=== PATIENT | female | born 1930 | race Caucasian/White ===

== ENCOUNTER 2017-09-20 14:15 | Inpatient (IN) | payer OTHER ==
[~2017-09-20] VITALS: Ht 165.1 cm; Wt 69.7 kg
--- NOTE | 2017-09-20 14:25 | ED MVC/FALL/TRAUMA COMPLAINT ---
See Addendum History of Present Illness General Chief Complaint: Fall Stated Complaint: BIBA FALL Source: patient, family, old records, EMS Exam Limitations: no limitations Vital Signs & Intake/Output Vital Signs & Intake/Output Vital Signs Date Time Temp Pulse Resp B/P B/P Pulse O2 O2 Flow FiO2 Mean Ox Delivery Rate 09/21 1304 84/50 09/21 1232 97.8 59 16 93/54 95 Room Air 09/21 1144 97 81/56 09/21 1116 78/54 09/21 0846 98.4 84 20 105/68 96 Room Air 09/21 0621 98.6 87 20 117/80 94 Room Air 09/21 0026 98.1 116 20 108/74 96 Room Air 09/20 2208 66 18 120/71 94 Room Air 09/20 2024 88 20 138/81 94 Room Air 09/20 1734 78 18 128/78 95 Room Air ED Intake and Output 09/21 0000 09/20 1200 Intake Total 100 Output Total Balance 100 Intake, IV 100 Patient 145 lb Weight Weight Reported by Patient Measurement Method Allergies Coded Allergies: No Known Allergies (09/20/17) Reconcile Medications No Known Home Medications Triage Nurses Notes Reviewed? yes Onset: Abrupt Duration: day(s): (1), constant Timing: recent history Severity: mild Severity Numbers: 5 Injuries/Fall Location: no injury Method of Injury: fall Loss of Consciousness: no loss of consciousness No Modifying Factors: none Associated Symptoms: DENIES HPI: 87-year-old female with no known medical history as she has not been to the doctor in several years presents to the ER for evaluation status post being found by family on the floor of her bathroom. She states yesterday around 3:00 she dropped something in the bathroom and when she attempted to pick it up she fell onto the ground. She states she did not hit her head there was no loss of consciousness. She states that her legs were too weak and she was unable to stand up. She denies any hip knee foot or ankle pain no numbness or tingling no arm pain neck or back pain. She denies any prodromal dizziness lightheadedness chest pain prior to the fall. There is no change in her mental status per family or the patient she denies nausea or vomiting. she normally uses a cane to ambulate (Benjamin MYLES,Pavel) Past History Travel History Traveled to [place] past 21 day No Medical History Any Pertinent Medical History? none Surgical History Surgical History: none Family History Hx Contributory? No (Pavel Schaefer) Review of Systems Review of Systems Constitutional: Reports: see HPI. Comments Review of systems: See HPI, All other systems negative. Constitutional, no chills no fever HEENT: no sore throat no congestion, Cardiovascular: No chest pain , no palpitation Skin: no rashes, no change in skin Respiratory: No dyspnea no cough GI: No nausea no vomiting, no diarrhea : No dysuria Muscle skeletal: No joint pain, no back pain, no neck pain, Neurologic: , no headache Heme/endocrine: No bruising Immunology: No lymphadenopathy (Pavel Schaefer) Physical Exam Physical Exam General Appearance: well developed/nourished, alert, awake Comments: Well-developed well-nourished person in no acute distress HEENT: Normal EENT exam; PERRL, EOMI, no nystagmus. HEAD is atraumatic. moist mucous membranes. Neck: Supple, nontender no ecchymosis normal range of motion Back: Nontender, no CVA tenderness. Full range of motion no ecchymosis or signs of trauma Cardiovascular: Regular rate and rhythms no murmurs rubs or gallops, normal JVP Respiratory: Chest nontender.There were no bony deformities, no asymmetry. No respiratory distress. Patient speaking in full complete sentences. Breath sounds clear to auscultation bilaterally: NO W/R/R Abdomen: Soft, nontender nondistended, no appreciable organomegaly. Normal bowel sounds. No rebound/guarding, Shoulder: Atraumatic/Stable. FROM . Elbow: Atraumatic/stable. FROM. No laxity Upper arm/Forearm: Atraumatic. Nontender. No edema, 5 out of 5 stick welder strength noted to bilateral upper extremities Hand/Wrist: Atraumatic/stable. Skin intact. FROM Pulses: Normal/equal radial pulses bilaterally. Brisk cap refill Hip/Pelvis: Atraumatic/Stable. FROM. No pain with pelvic compression Knee: Atraumatic/stable. FROM. No joint swelling, no effusion. No laxity. Negative walker/anterior drawer test. No pain with ROM Leg: Atraumatic. Nontender. No edema, 5 out of 5 strength in the lower extremity, normal dorsiflexion of great toe bilaterally, gross sensation is intact Ankle/Foot: Atraumatic/stable. Skin intact. FROM. No swelling, no effusion. No laxity on exam Pulses: Normal/equal DP/PT pulses bilaterally. Brisk cap refill Neuro: Alert oriented x3, motor sensory normal, cranial nerves II through XII grossly intact. There were no obvious focal neurologic abnormalities. Skin: No appreciable rash on exposed skin, skin is warm and dry. Psych: Mood and affect is normal, memory and judgment is normal. Core Measures ACS in differential dx? Yes CVA/TIA Diagnosis No Sepsis Present: No Sepsis Focused Exam Completed? No (Benjamin MYLES,Pavel) Progress Differential Diagnosis: abd injury, C/T/L spine injury, ext injury, ICH, pelvis injury, spinal cord injury, RHABDO, ELECTROLYTE ABNORMALITY, DEHYDRATION Plan of Care: Orders Procedure Date/time Status Regular Diet 09/21 B Active URINALYSIS 09/21 131 Active CBC WITHOUT DIFFERENTIAL 09/21 1316 Complete BASIC METABOLIC PANEL 09/21 1317 Complete MOBILITY D/C STATUS 09/21 UNK Complete MOBILITY GOAL STATUS 09/21 UNK Complete MOBILITY CURRENT STATUS 09/21 UNK Complete Gait Training, 15 Min 09/21 UNK Complete PT EVAL LOW COMPLEX 20 MIN 09/21 UNK Complete PT Evaluate & Treat 09/20 1748 Active CASE MANAGEMENT CONSULT 09/20 1748 Active Laboratory Tests 09/21/17 1405: Anion Gap 11, Estimated GFR 43 L, BUN/Creatinine Ratio 28.3 H, Glucose 102 H, Calcium 9.0, CBC w Diff NO MAN DIFF REQ, RBC 4.55, MCV 88.1, MCH 28.8, MCHC 32.7 L, RDW 14.2, MPV 7.8, Gran % 81.0 H, Lymphocytes % 9.5 L, Monocytes % 9.1, Eosinophils % 0.2, Basophils % 0.2, Absolute Granulocytes 8.1 H, Absolute Lymphocytes 1.0 L, Absolute Monocytes 0.9 H, Absolute Eosinophils 0, Absolute Basophils 0 09/20/17 1729: Lactic Acid Cancelled 09/20/17 1635: Urinalysis MOD H, Urine Color BRADEN, Urine Clarity HAZY H, Urine pH 7.5, Ur Specific [place] 1.025, Urine Protein 100 H, Urine Ketones 15 H, Urine Nitrite NEG, Urine Bilirubin NEG@ICTO, Urine Urobilinogen 1.0, Ur Leukocyte Esterase NEG , Ur Microscopic SEDIMENT EXAMINED, Urine RBC 1-3, Urine WBC 3-5 H, Ur Epithelial Cells MANY H, Urine Bacteria MANY H, Granular Casts 3-5 H, Urine Mucus FEW, Urine Hemoglobin SMALL H, Urine Glucose NEG Labs ordered patient resting in no acute distress at this time denies pain. PT RESTING IN NAD, PENDING CT, I D/W FAMILY HER LABS TO DATE D\W PT AND SON HER CT FINDINGS, PT AMB TO BATHROOM WITH ASSISTANCE, GAIT NOT AT BASELINE, D/W THEM PLAN OF CARE AND NEED FOR PT CONSULT EVAL IN THE AM WHICH THEY ARE IN AGREEEMENT WITH. CASE D/W CASE MANAGEMENT AGREES WITH PLAN. 1750 PT RESTING IN NAD, DENIES PAIN Diagnostic Imaging: Viewed by Me: CT Scan. Discussed w/RAD: CT Scan. Radiology Impression: PATIENT: ALLI MUNOZ PRESENT AGE: 87 PATIENT ACCOUNT NO: [id number] : 32 LOCATION: [facility] ORDERING PHYSICIAN: Pavel MYLES SERVICE DATE: 09/20/17 EXAM TYPE: CAT - CT ABD & PELVIS W/O IV CONTRAS; CT CHEST WO IV CONTRAST EXAMINATION: CT CHEST WITHOUT IV CONTRAST CT ABDOMEN AND PELVIS WITHOUT IV CONTRAST CLINICAL INFORMATION: Weakness. Fall. Trauma. COMPARISON: None TECHNIQUE: Noncontrast multidetector CT imaging examination of the chest, abdomen and pelvis was performed. Axial images are displayed at 0.625 mm and 5 mm slice thickness. Coronal and sagittal reformatted images were generated at the technologist's workstation and submitted for review. DLP: 466 mGy-cm FINDINGS: CHEST - LUNGS and PLEURA: Trachea and central airways are widely patent and normal in caliber. There are a few calcified pulmonary granulomas. Also, small, 0.3 cm noncalcified nodule is present in the lateral segment of the right middle lobe ( image 308, series 4) and 0.2 similar noncalcified nodule is present in the anterolateral aspect of the right lower lobe near the level of the major fissure (image 352, series 4). No suspicious lung nodule, mass, consolidation, pleural effusion or pneumothorax. Minimal centrilobular and paraseptal emphysematous changes. MEDIASTINUM: Mild cardiomegaly. Scattered atherosclerotic calcifications of coronary arteries. Mild calcification is observed at level of the aortic valve. Aortic root measures 3.6 cm. The dilated ascending thoracic aorta measures up to 4.4 cm AP and 4.2 cm transverse diameter. At the mid arch level, aorta is 3.2 cm transverse diameter. There is mild ectasia of the descending aorta, as well. No pericardial effusion. The esophagus has normal wall thickness. No pneumomediastinum. Thyroid gland is grossly unremarkable. LYMPHATICS: No pathologic sized axillary, hilar or mediastinal lymph nodes. CHEST WALL/BONES: Bones appear diffusely osteoporotic. Osteoarthritis of joints of both shoulders, most severe at the left glenohumeral joint. No evidence of an acute, displaced rib fracture or chest wall hematoma. No acute findings within the degenerated thoracic spine. There is approximately 25-30% anterior height loss of the T11 vertebral body which appears chronic. No acute fractures are seen. The sternum is intact. ABDOMEN AND PELVIS - HEPATOBILIARY: Liver has normal size, contour and attenuation. No perihepatic fluid collection. Gallbladder is well distended and without radiopaque calculi. No gallbladder wall edema or pericholecystic fluid. PANCREAS: Unremarkable. SPLEEN: Unremarkable. ADRENAL GLANDS: Unremarkable. KIDNEYS, URETERS, BLADDER: Kidneys have normal size, cortical thickness and attenuation. No nephrolithiasis or hydronephrosis. Urinary bladder is unremarkable. GI TRACT AND PERITONEUM: The stomach is underdistended. Bowel loops are normal in caliber. No evidence of acute inflammation or obstruction along the gastrointestinal tract. No ascites or pneumoperitoneum. Diverticulosis of the sigmoid colon without diverticulitis. ABDOMINAL WALL: Within the umbilical region, there is a approximately 1.3 cm wide fascial defect with small fat-containing hernia sac measuring 1.8 x 1.2 x 1.5 cm. VASCULAR: Atherosclerotic calcification of the abdominal aorta and iliac arteries without aortic aneurysm. No retroperitoneal hematoma. LYMPH NODES: No pathologic sized lymph nodes in the abdomen or pelvis. PELVIC VISCERA: The uterus is grossly unremarkable. No adnexal mass or pelvic free fluid. OSSEOUS STRUCTURES: There are vacuum disc degenerative changes at L4-L5 and L5-S1. Multilevel facet osteoarthritis of the lumbar spine, most severe at L4-L5 and L5 -S1. Pelvic bones, including sacrum, are intact. Osteoarthritis is mild at the right hip and severe at the left hip where there is pnur-ey-nndh contact, extensive subchondral cystic change and osteophyte formation. IMPRESSION: No acute traumatic findings in the chest, abdomen or pelvis. DICTATED BY: Zana Torres MD DATE/TIME DICTATED:09/20/171540 SURGICAL SCRUB TECH:GONSALEZ DATE/ TIME TRANSCRIBED:09/20/171540 CONFIDENTIAL, DO NOT COPY WITHOUT APPROPRIATE AUTHORIZATION. <Electronically signed in Other Vendor System> SIGNED BY: Zana Torres MD 09/20/17 1603, PATIENT: ALLI MUNOZ PRESENT AGE: 87 PATIENT ACCOUNT NO: [id number] : 32 LOCATION: [facility] ORDERING PHYSICIAN: Pavel MYLES SERVICE DATE: 09/20/17 EXAM TYPE: CAT - CT CERV SPINE WO IV CONTRAST; CT HEAD WO IV CONTRAST EXAMINATION: CT HEAD AND CT CERVICAL SPINE. CLINICAL INFORMATION: Weakness and fall. COMPARISON: None TECHNIQUE: 5 mm thin axial and 2.5 mm thin coronal images of brain were obtained. Subsequently axial 2.5 within axial and 2 within coronal and sagittal images of cervical spine were obtained without contrast. DLP 859 FINDINGS: BRAIN : There is no acute intra-axial, extra-axial bleed, masses or midline shift. There is no acute infarct in evolution. The lateral ventricles are symmetrical in size and configuration without enlargement. Olivas to white matter differentiation is maintained. Bone windows reveal no calvarial abnormality. Bilateral paranasal sinuses and mastoid air cells are well-aerated. CERVICAL SPINE: There is mild straightening of cervical lordosis. The vertebral heights and alignment appears normal. Loss of C4-C5, C5-C6 and C6-C7 disc height is noted. There is mild posterior spondylosis as well. No lytic or sclerotic process seen. Mild facet joint arthropathy seen on the right at C3-C4, C4-C5, C5 -C6 and C6-C7 disc levels. There is minimal right apical pleural thickening. IMPRESSION: No acute intra-abdominal cranial process seen. No acute fracture or dislocation. There are degenerative disc changes and facet joint arthropathy C3- C4 through C6-C7 disc levels. DICTATED BY: Frances MONTGOMERY,Jeremy DATE/TIME DICTATED:1548 SURGICAL SCRUB TECH:GONSALEZ DATE/TIME TRANSCRIBED:09/20/171548 CONFIDENTIAL, DO NOT COPY WITHOUT APPROPRIATE AUTHORIZATION. <Electronically signed in Other Vendor System> SIGNED BY: Frances MONTGOMERY,Jeremy 09/20/17 1605 Initial ED EKG: normal sinus rhythm, LBBB, PVC Rhythm Strip: normal sinus rhythm Hand-Off Endorsed To: Meek Wallace MD Endorsed Time: 0100 Pending: consult (PT), other (Pavel Schaefer) Hand-Off Endorsed To: Weston Duke DO Endorsed Time: 0700 Pending: consult (Meek Wallace MD) Comments: 09/21/2017 7:27:11 AM patient signed out to me (not Dr. Duke) by Dr. Wallace at shift change agent. 09/21/2017 11:26:27 AM it was just reported to me by this patient's nurse that she is hypotensive. The patient appears quite comfortable sitting in a chair by the bedside. Her color is good and she is alert and conversant. She offers no complaint at this time. I have ordered orthostatic vital signs to assess for possible volume depletion. (Weston Bruce MD) Departure Departure Disposition: STILL A PATIENT Condition: Stable Clinical Impression Primary Impression: Weakness Secondary Impressions: Fall, Gait instability Departure Forms: Customer Survey General Discharge Information (Pavel Schaefer) PA/SYNTHETIC GEM PRESS OPERATOR Co-Sign Statement Statement: ED Attending supervision documentation- [X] I saw and evaluated the patient. I have also reviewed all the pertinent lab results and diagnostic results. I agree with the findings and the plan of care as documented in the PA's/SYNTHETIC GEM PRESS OPERATOR's documentation. [X] I have reviewed the ED Record and agree with the PA's/SYNTHETIC GEM PRESS OPERATOR's documentation. [] Additions or exceptions (if any) to the PAs/SYNTHETIC GEM PRESS OPERATOR's note and plan are summarized below: [] (Meek Wallace MD) Departure Prescriptions: Current Visit Scripts No Known Home Medications Rolling Walker UNIT SEE ADMIN CRITERIA #1 Use as instructed. (Weston Bruce MD) Departure Comments 09/21/17 3:34 PM PATIENT SIGNED OUT TO ME BY DR BRUCE. (Weston Duke DO) Current Visit Scripts No Known Home Medications Rolling Walker UNIT SEE ADMIN CRITERIA #1 Use as instructed. (Weston Bruce MD)
[2017-09-20 14:59] LABS: ABSOLUTE BASOPHIL COUNT 0 /CUMM (0.0-0.2); ABSOLUTE EOSINOPHIL COUNT 0 /CUMM (0.0-0.7); ABSOLUTE MONOCYTE COUNT 0.9 /CUMM (0.10-0.60); BASOPHIL % 0 % (0.0-2.0); EOSINOPHIL % 0 % (0-5); GRANULOCYTE % 85.6 % (42.2-75.2); HEMATOCRIT 45.9 % (37-47); MEAN CORPUSCULAR HGB 28.8 PG (27.0-31.0); MEAN CORPUSCULAR HGB CONC 32.8 G/DL (33.0-37.0); MEAN CORPUSCULAR VOLUME 87.8 FL (81.0-99.0); MEAN PLATELET VOLUME 7.8 FL (7.4-10.4); PLATELET COUNT 296 /CUMM (130-400); RBC DISTRIBUTION WIDTH 14.1 % (11.5-14.5); RED BLOOD CELL CT 5.23 /CUMM (4.20-5.40); WHITE BLOOD CELL COUNT 12.9 /CUMM (4.8-10.8)
[2017-09-20 15:19] LABS: PT 11.9 SEC (9.4-12.5)
--- NOTE | 2017-09-20 16:03 | CT SCAN REPORT ---
EXAMINATION: CT CHEST WITHOUT IV CONTRAST CT ABDOMEN AND PELVIS WITHOUT IV CONTRAST CLINICAL INFORMATION: Weakness. Fall. Trauma. COMPARISON: None TECHNIQUE: Noncontrast multidetector CT imaging examination of the chest, abdomen and pelvis was performed. Axial images are displayed at 0.625 mm and 5 mm slice thickness. Coronal and sagittal reformatted images were generated at the technologist's workstation and submitted for review. DLP: 466 mGy-cm FINDINGS: CHEST - LUNGS and PLEURA: Trachea and central airways are widely patent and normal in caliber. There are a few calcified pulmonary granulomas. Also, small, 0.3 cm noncalcified nodule is present in the lateral segment of the right middle lobe (image 308, series 4) and 0.2 similar noncalcified nodule is present in the anterolateral aspect of the right lower lobe near the level of the major fissure (image 352, series 4). No suspicious lung nodule, mass, consolidation, pleural effusion or pneumothorax. Minimal centrilobular and paraseptal emphysematous changes. MEDIASTINUM: Mild cardiomegaly. Scattered atherosclerotic calcifications of coronary arteries. Mild calcification is observed at level of the aortic valve. Aortic root measures 3.6 cm. The dilated ascending thoracic aorta measures up to 4.4 cm AP and 4.2 cm transverse diameter. At the mid arch level, aorta is 3.2 cm transverse diameter. There is mild ectasia of the descending aorta, as well. No pericardial effusion. The esophagus has normal wall thickness. No pneumomediastinum. Thyroid gland is grossly unremarkable. LYMPHATICS: No pathologic sized axillary, hilar or mediastinal lymph nodes. CHEST WALL/BONES: Bones appear diffusely osteoporotic. Osteoarthritis of joints of both shoulders, most severe at the left glenohumeral joint. No evidence of an acute, displaced rib fracture or chest wall hematoma. No acute findings within the degenerated thoracic spine. There is approximately 25-30% anterior height loss of the T11 vertebral body which appears chronic. No acute fractures are seen. The sternum is intact. ABDOMEN AND PELVIS - HEPATOBILIARY: Liver has normal size, contour and attenuation. No perihepatic fluid collection. Gallbladder is well distended and without radiopaque calculi. No gallbladder wall edema or pericholecystic fluid. PANCREAS: Unremarkable. SPLEEN: Unremarkable. ADRENAL GLANDS: Unremarkable. KIDNEYS, URETERS, BLADDER: Kidneys have normal size, cortical thickness and attenuation. No nephrolithiasis or hydronephrosis. Urinary bladder is unremarkable. GI TRACT AND PERITONEUM: The stomach is underdistended. Bowel loops are normal in caliber. No evidence of acute inflammation or obstruction along the gastrointestinal tract. No ascites or pneumoperitoneum. Diverticulosis of the sigmoid colon without diverticulitis. ABDOMINAL WALL: Within the umbilical region, there is a approximately 1.3 cm wide fascial defect with small fat-containing hernia sac measuring 1.8 x 1.2 x 1.5 cm. VASCULAR: Atherosclerotic calcification of the abdominal aorta and iliac arteries without aortic aneurysm. No retroperitoneal hematoma. LYMPH NODES: No pathologic sized lymph nodes in the abdomen or pelvis. PELVIC VISCERA: The uterus is grossly unremarkable. No adnexal mass or pelvic free fluid. OSSEOUS STRUCTURES: There are vacuum disc degenerative changes at L4-L5 and L5-S1. Multilevel facet osteoarthritis of the lumbar spine, most severe at L4-L5 and L5-S1. Pelvic bones, including sacrum, are intact. Osteoarthritis is mild at the right hip and severe at the left hip where there is yodt-nm-rcyh contact, extensive subchondral cystic change and osteophyte formation. IMPRESSION: No acute traumatic findings in the chest, abdomen or pelvis.
--- NOTE | 2017-09-20 16:05 | CT SCAN REPORT ---
EXAMINATION: CT HEAD AND CT CERVICAL SPINE. CLINICAL INFORMATION: Weakness and fall. COMPARISON: None TECHNIQUE: 5 mm thin axial and 2.5 mm thin coronal images of brain were obtained. Subsequently axial 2.5 within axial and 2 within coronal and sagittal images of cervical spine were obtained without contrast. DLP 859 FINDINGS: BRAIN: There is no acute intra-axial, extra-axial bleed, masses or midline shift. There is no acute infarct in evolution. The lateral ventricles are symmetrical in size and configuration without enlargement. Olivas to white matter differentiation is maintained. Bone windows reveal no calvarial abnormality. Bilateral paranasal sinuses and mastoid air cells are well-aerated. CERVICAL SPINE: There is mild straightening of cervical lordosis. The vertebral heights and alignment appears normal. Loss of C4-C5, C5-C6 and C6-C7 disc height is noted. There is mild posterior spondylosis as well. No lytic or sclerotic process seen. Mild facet joint arthropathy seen on the right at C3-C4, C4-C5, C5-C6 and C6-C7 disc levels. There is minimal right apical pleural thickening. IMPRESSION: No acute intra-abdominal cranial process seen. No acute fracture or dislocation. There are degenerative disc changes and facet joint arthropathy C3-C4 through C6-C7 disc levels.
[2017-09-21] MEDS ORDERED: RW (10:57)
[2017-09-21 14:19] LABS: ABSOLUTE BASOPHIL COUNT 0 /CUMM (0.0-0.2); ABSOLUTE EOSINOPHIL COUNT 0 /CUMM (0.0-0.7); ABSOLUTE GRANULOCYTE CT 8.1 /CUMM (1.4-6.5); ABSOLUTE MONOCYTE COUNT 0.9 /CUMM (0.10-0.60); BASOPHIL % 0.2 % (0.0-2.0); EOSINOPHIL % 0.2 % (0-5); MEAN CORPUSCULAR HGB 28.8 PG (27.0-31.0); MEAN CORPUSCULAR HGB CONC 32.7 G/DL (33.0-37.0); MEAN CORPUSCULAR VOLUME 88.1 FL (81.0-99.0); MEAN PLATELET VOLUME 7.8 FL (7.4-10.4); PLATELET COUNT 268 /CUMM (130-400); RBC DISTRIBUTION WIDTH 14.2 % (11.5-14.5); RED BLOOD CELL CT 4.55 /CUMM (4.20-5.40); WHITE BLOOD CELL COUNT 10.1 /CUMM (4.8-10.8)
[2017-09-21 14:34] LABS: HEMATOCRIT 40.1 % (37-47)
--- NOTE | 2017-09-21 18:32 | Cons- Cardiology ---
General Information and HPI Consulting Request Date of Consult: 09/21/17 Requested By: ER History of Present Illness: This patient is an 87 year old female with no significant past medical history although she refuses to see doctors. She presented to the emergency room Wednesday after a fall that occurred on Wednesday. Today, this patient was noted to be in atrial fibrillation with increased heart rate and this was accompanied by hypotension. The patient cannot feel this dysrhythmia and in general denies any chest pain, pressure, tightness or palpitations. She does have occasional lightheadedness and also has some shortness of breath with PND. When she feels poorly she likes to go to an open window and also sleeps on multiple pillows. At her baseline, she walks slowly although she attributes this to left leg arthritis. Allergies/Medications Allergies: Coded Allergies: No Known Allergies (09/20/17) Review of Systems Review of Systems: left leg and lower back pain Past History Travel History Traveled to [place] past 21 day No Medical History Musculoskeletal: NONE (arthritis) Endocrine: hypothyroisism Surgical History Surgical History: tonsillectomy Psychosocial History Smoking Status: Never Smoked ETOH Use: denies use Illicit Drug Use: denies illicit drug use Exam & Diagnostic Data Vital Signs and I&O Vital Signs Date Time Temp Pulse Resp B/P B/P Pulse O2 O2 Flow FiO2 Mean Ox Delivery Rate 09/21 1818 129 18 88/50 100 Nasal 2.0L Cannula 09/21 1808 98.9 148 16 72/54 09/21 1724 128 18 86/50 95 Room Air Room Air 09/21 1722 112 18 84/48 94 Room Air Room Air 09/21 1621 99.4 126 18 104/80 96 Room Air Room Air 09/21 1304 84/50 09/21 1232 97.8 59 16 93/54 95 Room Air 09/21 1144 97 81/56 09/21 1116 78/54 09/21 0846 98.4 84 20 105/68 96 Room Air 09/21 0621 98.6 87 20 117/80 94 Room Air 09/21 0026 98.1 116 20 108/74 96 Room Air 09/20 2208 66 18 120/71 94 Room Air 09/20 2024 88 20 138/81 94 Room Air Intake & Output 09/21 1600 09/21 0800 09/21 0000 09/20 1600 09/20 0800 09/20 0000 Intake Total 100 Output Total Balance 100 Intake, IV 100 Patient 145 lb Weight Weight Reported by Patient Measurement Method Physical Exam: General: WD/WN female in NAD; alert and oriented x 3 HEENT: NC/AT, PERRL, EOMI Neck: no JVD, no carotid bruit Heart: irregularly irregular and tachycardic with 2/6 systolic murmur Lungs: clear bilaterally ABdomen: soft, NT, +ve bowel sounds Extremities: 1+ left LE edema Assessment/Plan Assessment/Plan * This patient has newly discovered atrial fibrillation. Since she is completely incognizant of this dysrhythmia, even in the setting of a very rapid heart rate, we cannot exclude the possibility that she has been going in and out of atrial fibrillation for a long period of time. In the setting of paroxysmal atrial fibrillation this patient could have developed both intracardiac thrombus and a tachycardia induced cardiomyopathy. We will begin Amiodarone to attempt to slow her heart rate without lowering her blood pressure since this medication is known to be well tolerated even in the setting of a low EF. This is likely less risky than directly cardioverting the patient into a normal rhythm. We will also begin beta blockers in a cautious fashion with careful monitoring of her BP. * Begin IV heparin. * Check a TSH and free T4. * obtain an echocardiogram. * Admit to telemetry. Consult Acknowledgment - Thank you for your consult request.
--- NOTE | 2017-09-21 18:45 | History & Physical ---
Aries MONTGOMERY,[facility] 09/21/17 1845: General Information and HPI Statement: I have seen and personally examined ALLI MUNOZ and documented this H&P. The patient is a 87 year old F who presented with a patient stated chief complaint of fall. Source of Information: patient, family History of Present Illness: This is an 87-year-old lady with no known past medical history and reported noncompliance with doctor visits for several years, was brought in at [facility] by family members for evaluation after experiencing a mechanical fall 3 days ago. 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 She denied hitting her head on the ground. She states that she tried to get up immediately, but was not able due to hip pain. She "chose" to not yell for help untill the next day when her grandkid found her seated on the floor. Denies any prodromal symptoms of dizziness, denied any chest pain or palpitation, denied any loss of consciousness. No postictal confusion, bowel or urinary incontinence was noted. Denies any dysarthia, facial drop or any neurological symptoms. When found the next day by her grandkid, she was not noted to be confused but pleasently alert and at her usual baseline. However, she report a history of chronic hip pain with osteoarthritin, and a previous similar fall 2 weeks ago. She states that she was evaluated by an orthopedic surgeon and informed her about her degenerative joint status of her hip, she however decided not to follow up with ortho. She now sees a chiropractor. At baseline, patient leaves by herself, and is independent with ADLs. 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 Allergies/Medications Allergies: Coded Allergies: No Known Allergies (09/20/17) Past History Travel History Traveled to [place] past 21 day No Medical History Musculoskeletal: NONE (arthritis) Endocrine: hypothyroisism Surgical History Surgical History: tonsillectomy Past Family/Social History Psychosocial History Smoking Status: Never Smoked ETOH Use: denies use Illicit Drug Use: denies illicit drug use Review of Systems Review of Systems Constitutional: Reports: see HPI. EENTM: Reports: no symptoms. Cardiovascular: Reports: no symptoms. Respiratory: Reports: no symptoms. GI: Reports: no symptoms. Genitourinary: Reports: no symptoms. Musculoskeletal: Reports: joint pain. Skin: Reports: no symptoms. Neurological/Psychological: Reports: no symptoms. Hematologic/Endocrine: Reports: no symptoms. Immunologic/Allergic: Reports: no symptoms. All Other Systems: Reviewed and Negative Exam & Diagnostic Data Last 24 Hrs of Vital Signs/I&O Vital Signs Date Time Temp Pulse Resp B/P B/P Pulse O2 O2 Flow FiO2 Mean Ox Delivery Rate 09/21 2006 Nasal 2.0L Cannula 09/21 191 97.9 112 18 112/70 92 Room Air Room Air 09/21 1901 101 86/64 09/21 1834 92 88/54 99 Nasal 2.0L Cannula 09/21 1829 92 18 88/56 09/21 1818 129 18 88/50 100 Nasal 2.0L Cannula 09/21 1808 98.9 148 16 72/54 09/21 1724 128 18 86/50 95 Room Air Room Air 09/21 1722 112 18 84/48 94 Room Air Room Air 09/21 1621 99.4 126 18 104/80 96 Room Air Room Air 09/21 1304 84/50 09/21 1232 97.8 59 16 93/54 95 Room Air 09/21 1144 97 81/56 09/21 1116 78/54 09/21 0846 98.4 84 20 105/68 96 Room Air 09/21 0621 98.6 87 20 117/80 94 Room Air 09/21 0026 98.1 116 20 108/74 96 Room Air 09/20 2208 66 18 120/71 94 Room Air Physical Exam General Appearance Alert, Oriented X3, Cooperative Skin No Significant Lesion Skin Temp/Moisture Exam: Warm/Dry Sepsis Skin Exam (color): Normal for Ethnicity HEENT Atraumatic, Mucous Membr. moist/pink Neck Supple, No JVD Lymphatic Cervical nl Cardiovascular Normal S1, Normal S2, irregular rate Lungs Clear to Auscultation, Normal Air Movement Abdomen Normal Bowel Sounds, Soft, No Tenderness Neurological Normal Speech, Strength at 5/5 X4 Ext, Normal Tone, Sensation Intact Extremities No Clubbing, No Cyanosis, No Edema, left hip tender to deppe palpation, no erythema or swelling noted. decreased rom of left hip due to pain Vascular Normal Pulses, Pulses Symmetrical Last 24 Hrs of Labs/Bridger: Laboratory Tests 09/21/17 1755: Troponin I 0.05 09/21/17 1405: Anion Gap 11, Estimated GFR 43 L, BUN/Creatinine Ratio 28.3 H, Glucose 102 H, Calcium 9.0, CBC w Diff NO MAN DIFF REQ, RBC 4.55, MCV 88.1, MCH 28.8, MCHC 32.7 L, RDW 14.2, MPV 7.8, Gran % 81.0 H, Lymphocytes % 9.5 L, Monocytes % 9.1, Eosinophils % 0.2, Basophils % 0.2, Absolute Granulocytes 8.1 H, Absolute Lymphocytes 1.0 L, Absolute Monocytes 0.9 H, Absolute Eosinophils 0, Absolute Basophils 0 Diagnostic Data EKG Results afib Other Results SERVICE DATE: 09/20/17 EXAM TYPE: CAT - CT CERV SPINE WO IV CONTRAST; CT HEAD WO IV CONTRAST EXAMINATION: CT HEAD AND CT CERVICAL SPINE. CLINICAL INFORMATION: Weakness and fall. COMPARISON: None TECHNIQUE: 5 mm thin axial and 2.5 mm thin coronal images of brain were obtained. Subsequently axial 2.5 within axial and 2 within coronal and sagittal images of cervical spine were obtained without contrast. DLP [id number] FINDINGS: BRAIN: There is no acute intra-axial, extra-axial bleed, masses or midline shift. There is no acute infarct in evolution. The lateral ventricles are symmetrical in size and configuration without enlargement. [place] to white matter differentiation is maintained. Bone windows reveal no calvarial abnormality. Bilateral paranasal sinuses and mastoid air cells are well-aerated. CERVICAL SPINE: There is mild straightening of cervical lordosis. The vertebral heights and alignment appears normal. Loss of C4-C5, C5-C6 and C6-C7 disc height is noted. There is mild posterior spondylosis as well. No lytic or sclerotic process seen. Mild facet joint arthropathy seen on the right at C3-C4, C4-C5, C5-C6 and C6-C7 disc levels. There is minimal right apical pleural thickening. IMPRESSION: No acute intra-abdominal cranial process seen. No acute fracture or dislocation. There are degenerative disc changes and facet joint arthropathy C3-C4 through C6-C7 disc levels. Assessment/Plan Assessment: Impression * New onset A. fib with RVR * History of mechanical fall * Reported history of hip osteoarthritis * Chronic pain * Renal insufficiency * Rhabdomyolysis (mild) Plan Admit to telemetry for continuous cardiac monitoring Continue with amiodarone bolus X1, and then a switch to metoprolol as needed for rate control per cardiology recommendation Heparin drip per protocol for afib was ordered, however patient refused Obtain TSH levels Will obtain echocardiogram to evaluate for any valvular pathology Continue to trend BEP and cpk tomorrow am PT tomorrow dVT prophylaxis; Mechanical ALPS (Pt does not want any form of pharmacological anticoagulant). CODE STATUS : DNR/DNI, no central lines or heroic measures (pt is very adamant abot his wishes). As Ranked By This Provider Problem List: 1. Fall 2. Atrial fibrillation with RVR 3. Rhabdomyolysis Core Measures/Misc (01/17) Acute Coronary Syndrome ACS Diagnosis: No Congestive Heart Failure Congestive Heart Failure Diagnosis No Cerebrovascular Accident CVA/TIA Diagnosis: No VTE (View Protocol) VTE Risk Factors Acute Medical Illness No Mechanical VTE Prophylaxis d/t N/A MechProphylax Ordered No VTE Pharm Prophylaxis d/t Other (pt refused) Sepsis (View protocol) Sepsis Present: No If YES complete Sepsis Event Note If YES complete Sepsis Event Note Benita MONTGOMERY,[place] 09/21/17 1858: Core Measures/Misc (01/17) Sepsis (View protocol) If YES complete Sepsis Event Note If YES complete Sepsis Event Note Attending MD Review Statement Attending Statement Attending MD Statement: examined this patient, discuss w/resident/PA/FINANCIAL REP, agreed w/resident/PA/FINANCIAL REP, discussed with family, reviewed EMR data (avail) Attending Assessment/Plan: Patient seen and examined. Plan of care discussed with the medical team and the patient. Available lab work and radiology test reports were reviewed. Patient and daughter is at the bedside. This is 87-year-old the female who usually does not follow up with any physicians who presents with a fall yesterday at home while going downstairs. He denies any head trauma or loss of consciousness during the fall. She also has been suffering from arthritis especially his left hip. Because of arthritis she's been having difficulty with ambulation although she is able to keep her activities of daily living. While she was being assessed in ED she was noted to be in rapid A. fib and then she dropped her blood pressure down to 72/54. Patient is currently receiving IV saline bolus. Patient otherwise does not appear to be sick or in any distress. Chest exam is clear abdomen soft nontender. Neuro exam nonfocal. Lab showed WBC count of 12.9 with mild left shift. Creatinine is 1.3 and CK level is 498 and 2 sets of troponin were negative. UA shows bacteriuria. CT head/C spine No acute intra-abdominal cranial process seen. No acute fracture or dislocation. There are degenerative disc changes and facet joint arthropathy C3-C4 through C6 -C7 disc levels. CT chest abdomen pelvis did not show any traumatic injuries. Assessment plan * Rapid A. fib * Hypotension likely due to rapid A. fib or dehydration although there is no chemical evidence on labs of dehydration * Osteoarthritis * History of fall * Renal failure likely chronic- no past lab work is available * Mild rhabdomyolysis Plan * IV fluid boluses saline to increase his blood pressure * His blood pressure does not respond to IV fluid bolus patient may need to go to ICU * Cardiology consult * In light of low BP rapid A. fib patient may need digoxin * Obtain urine and blood culture * Rule out OK protocol * Physical therapy assessment once blood pressure is stabilized
--- NOTE | 2017-09-21 19:06 | Admission Certification ---
Admission Certification Certification Statement - As attending physician, I certify that at the time of - admission, based on clinical presentation, severity of - symptoms, need for further diagnostic testing and - therapeutic interventions, and risk of adverse outcomes - without in-hospital treatment, in my clinical assessment, - this patient requires an acute hospital stay for a minimum - of two nights or longer. I have also considered psychsocial - factors such as support system, advanced age, financial - issues, cognitive issues, and failed out-patient treatments, - past re-admission history, safety of patient, and lack of - compliance as applicable. Specific rationale supporting this admission is: Fall, rapid A. fib and hypotension
[2017-09-21 20:00] VITALS: BP 90/60
[2017-09-21 22:15] VITALS: BP 112/72
[2017-09-21 23:25] VITALS: BP 112/72
[2017-09-22 06:47] VITALS: BP 118/66
--- NOTE | 2017-09-22 07:43 | Event Note ---
Event Note Event Note: Overnight event: 09/22/17: 2000 hrs: I was informed by nursing staff that the patient was refusing IV heparin against the suggestion by laundry operator. I went into the room, briefly assessed the situation, the patient had capacity to decide for herself, family members were around, she as well as her family members were informed about the the benefits and risks of anticoagulation including with IV heparin or any other forms, including the risk of having a clot which might travel to develop a stroke, which could be life-threatening if she is not adequately anticoagulated. The patient clearly mentioned that she will NOT take any forms of anti-coagulation including IV heparin. However at the end of conversation, she mentioned she would probably reconsider if she already has a clot that would be seen by an echocardiogram (TTE or MARIAM). Family members tried pursuing her, but in the end, patient's informed decision was respected.
[2017-09-22 08:23] LABS: ABSOLUTE BASOPHIL COUNT 0 /CUMM (0.0-0.2); ABSOLUTE EOSINOPHIL COUNT 0.1 /CUMM (0.0-0.7); ABSOLUTE GRANULOCYTE CT 6.9 /CUMM (1.4-6.5); ABSOLUTE LYMPH COUNT 1.3 /CUMM (1.2-3.4); ABSOLUTE MONOCYTE COUNT 0.7 /CUMM (0.10-0.60); BASOPHIL % 0.2 % (0.0-2.0); EOSINOPHIL % 1.2 % (0-5); GRANULOCYTE % 76.6 % (42.2-75.2); MEAN CORPUSCULAR HGB 28.9 PG (27.0-31.0); MEAN CORPUSCULAR HGB CONC 33.1 G/DL (33.0-37.0); MEAN CORPUSCULAR VOLUME 87.3 FL (81.0-99.0); MEAN PLATELET VOLUME 8.1 FL (7.4-10.4); PLATELET COUNT 264 /CUMM (130-400); RBC DISTRIBUTION WIDTH 14.6 % (11.5-14.5); WHITE BLOOD CELL COUNT 9.1 /CUMM (4.8-10.8)
[2017-09-22 08:54] LABS: HEMATOCRIT 34.9 % (37-47)
--- NOTE | 2017-09-22 10:03 | PN- Housestaff ---
Aubrey Wang 09/22/17 1003: Subjective Follow-up For: Clemencia marvin with RVR Tele-Events Since Last Visit: NSR overnight. Subjective: Offers no complaints. Continues to refuse anti-coagulation. Review of Systems Constitutional: Reports: see HPI. Objective Last 24 Hrs of Vital Signs/I&O Vital Signs Date Time Temp Pulse Resp B/P B/P Pulse O2 O2 Flow FiO2 Mean Ox Delivery Rate 09/22 0800 96 Room Air 09/22 0647 98.1 80 20 118/66 96 Nasal Cannula 09/21 2325 98.1 76 18 112/72 97 Room Air 09/21 2215 78 112/72 09/21 2006 Nasal 2.0L Cannula 09/21 2000 83 90/60 09/21 1919 97.9 112 18 112/70 92 Room Air Room Air 09/21 1901 101 86/64 09/21 1834 92 88/54 99 Nasal 2.0L Cannula 09/21 1829 92 18 88/56 09/21 1818 129 18 88/50 100 Nasal 2.0L Cannula 09/21 1808 98.9 148 16 72/54 09/21 1724 128 18 86/50 95 Room Air Room Air 09/21 1722 112 18 84/48 94 Room Air Room Air 09/21 1621 99.4 126 18 104/80 96 Room Air Room Air 09/21 1304 84/50 09/21 1232 97.8 59 16 93/54 95 Room Air 09/21 1144 97 81/56 09/21 1116 78/54 Intake & Output 09/22 1600 09/22 0800 09/22 0000 Intake Total 200 350 Output Total Balance 200 350 Intake, IV 250 Intake, Oral 200 100 Patient 159 lb Weight Weight Bed scale Measurement Method Physical Exam General Appearance: Alert, Oriented X3 Cardiovascular: Regular Rate, Normal S1, Normal S2 Lungs: Clear to Auscultation, Normal Air Movement Abdomen: Normal Bowel Sounds, Soft Extremities: No Clubbing, No Cyanosis Current Medications: Current Medications Sig/Telly Start time Last Medication Dose Route Stop Time Status Admin Amiodarone HCl 0 .STK-MED ONE 09/21 1741 DC .ROUTE Amiodarone HCl/ 150 MG ONCE ONE 09/21 1800 DC 09/21 Dextrose IV 09/21 1809 1808 N/A 1 UNIT Heparin Sodium 25,000 UNIT Q24H 09/21 1900 AC (Porcine) IV Sodium Chloride 500 ML Metoprolol Tartrate 25 MG ONCE ONE 09/21 1845 DC 09/21 IV 09/21 1846 1829 Metoprolol Tartrate 0 .STK-MED ONE 09/21 1822 DC IV Sodium Chloride 250 ML BOLUS ONE 09/21 2100 DC 09/21 IV 09/21 2159 2121 Sodium Chloride 1,000 ML BOLUS ONE 09/21 1800 DC 09/21 IV 09/21 1859 1753 Sodium Chloride 500 ML BOLUS ONE 09/21 1330 DC 09/21 IV 09/21 1429 1328 Sodium Chloride 500 ML BOLUS ONE 09/21 1145 DC 09/21 IV 09/21 1244 1204 Last 24 Hrs of Lab/Bridger Results Last 24 Hrs of Labs/Mics: Laboratory Tests 09/22/17 0651: Anion Gap 8, Estimated GFR 60, BUN/Creatinine Ratio 33.3 H, Creatine Kinase 70, CBC w Diff NO MAN DIFF REQ, RBC 4.00 L, MCV 87.3, MCH 28.9, MCHC 33.1, RDW 14.6 H, MPV 8.1, Gran % 76.6 H, Lymphocytes % 14.3 L, Monocytes % 7.7, Eosinophils % 1.2, Basophils % 0.2, Absolute Granulocytes 6.9 H, Absolute Lymphocytes 1.3, Absolute Monocytes 0.7 H, Absolute Eosinophils 0.1, Absolute Basophils 0 09/22/17 0020: Troponin I 0.05 09/21/17 1755: Troponin I 0.05 09/21/17 1405: Anion Gap 11, Estimated GFR 43 L, BUN/Creatinine Ratio 28.3 H, Glucose 102 H, Calcium 9.0, CBC w Diff NO MAN DIFF REQ, RBC 4.55, MCV 88.1, MCH 28.8, MCHC 32.7 L, RDW 14.2, MPV 7.8, Gran % 81.0 H, Lymphocytes % 9.5 L, Monocytes % 9.1, Eosinophils % 0.2, Basophils % 0.2, Absolute Granulocytes 8.1 H, Absolute Lymphocytes 1.0 L, Absolute Monocytes 0.9 H, Absolute Eosinophils 0, Absolute Basophils 0 Microbiology 09/23 39 BLOOD: Blood Culture - RECD 09/23 39 BLOOD: Blood Culture - RECD Assessment/Plan Assessment: [id number]-usr woman was brought in by her daughter after sustaining a fall at home while going downstairs. This was attributed to her severe arthritis and left hip. While in the ED patient was noted to be in rapid atrial fibrillation and subsequently was found to be hypotensive to 72/54. She received multiple boluses, with subsequent rise in her blood pressure. She is admitted to telemetry for evaluation and treatment of rapid atrial fibrillation. 1. A. fib with RVR. Spontaneous conversion to sinus rhythm since yesterday. Continues to refuse anticoagulation. Await echocardiogram. 2. Altered thyroid function. Apathetic hyperthyroidism, especially in the setting of new atrial fibrillation as a concern. Although, her free T4 levels are only borderline high (considered as normal in most labs). Her normal TSH argues against thyroid etiology, however, with no baseline TSH-this could be a new low TSH for her. We'll check total T3 levels, she may benefit from an endocrinology evaluation as an outpatient. 3. Recurrent falls. PT evaluation. DNR/DNI. Patient refuses anticoagulant. Regular diet. Problem List: 1. Atrial fibrillation with RVR Pain Ratin Pain Location: Hip Pain Goal: Remain pain free Pain Plan: No painkillers per patient request. Tomorrow's Labs & Rationales: Acute kidney injury. Drop in H&H. LjBairon carrillo 09/22/17 1334: Attending MD Review Statement Attending Statement Attending MD Statement: examined this patient, discuss w/resident/PA/RETAIL ATTENDANT, agreed w/resident/PA/RETAIL ATTENDANT, discussed with family, reviewed EMR data (avail), discussed with nursing, discussed with case mgmt, reviewed images, amended to note Attending Assessment/Plan: Patient is reluctant to medications. She was brought here 2/2 fall found to have new afib Now in sinus rhytm She is new onset afib and in telemetry monitoring. Cardiology consulted. She refuses anticoagulation. ECHO as per cardiology. outpatinet endocrinology referral. PT evaluation for dc planning. gi/dvt prophyalxis
--- NOTE | 2017-09-22 10:11 | PN- Cardiology ---
Subjective Subjective: * Patient feels well. She refused drug therapy. * Now in a sinus rhythm. * borderline hyperthyroidism noted Objective Vital Signs and I&Os Vital Signs Date Time Temp Pulse Resp B/P B/P Pulse O2 O2 Flow FiO2 Mean Ox Delivery Rate 09/22 0800 96 Room Air 09/22 0647 98.1 80 20 118/66 96 Nasal Cannula 09/21 2325 98.1 76 18 112/72 97 Room Air 09/21 2215 78 112/72 09/21 2006 Nasal 2.0L Cannula 09/22 1999 83 90/60 09/21 1919 97.9 112 18 112/70 92 Room Air Room Air 09/21 1901 101 86/64 09/21 1834 92 88/54 99 Nasal 2.0L Cannula 09/21 1829 92 18 88/56 09/21 1818 129 18 88/50 100 Nasal 2.0L Cannula 09/21 1808 98.9 148 16 72/54 09/21 1724 128 18 86/50 95 Room Air Room Air 09/21 1722 112 18 84/48 94 Room Air Room Air 09/21 1621 99.4 126 18 104/80 96 Room Air Room Air 09/21 1304 84/50 09/21 1232 97.8 59 16 93/54 95 Room Air 09/21 1144 97 81/56 09/21 1116 78/54 Intake & Output 09/22 1600 09/22 0800 09/22 0000 09/21 1600 09/21 0800 09/21 0000 Intake Total 200 350 Output Total Balance 200 350 Intake, IV 250 Intake, Oral 200 100 Patient 159 lb Weight Weight Bed scale Measurement Method Physical Exam: General: WD/WN female in NAD; alert and oriented x 3 HEENT: NC/AT, PERRL, EOMI Neck: no JVD, no carotid bruit Heart: RRR Lungs: clear bilaterally ABdomen: soft, NT, +ve bowel sounds Extremities: 1+ left LE edema Assessment/Plan Assessment/Plan * This patient has newly discovered atrial fibrillation. Since she is completely incognizant of this dysrhythmia, even in the setting of a very rapid heart rate, we cannot exclude the possibility that she has been going in and out of atrial fibrillation for a long period of time. In the setting of paroxysmal atrial fibrillation this patient could have developed both intracardiac thrombus and a tachycardia induced cardiomyopathy. We will obtain an echocardiogram to assess for intracardiac thrombus and her overall EF as well as stuctural heart disease that would promote atrial fibrillation. * The patient is mildly hyperthyroid and may benefit from an endocrinology consultation. * This patient is adamant that she will not take medications. She is also not interested in procedures that treat atrial fibrillation. Continue telemetry? Yes
[2017-09-22 15:00] VITALS: BP 112/62
--- NOTE | 2017-09-22 18:47 | ECHOCARDIOGRAM REPORT ---
ALLI MUNOZ Age: 87 : 1930 Gender: F Exam Date: 09/21/2017 20:08 Exam Location: 1 [address] Ht (in): 65 Wt (lb): 145 BSA: 1.75 BP: 112 / 70 Ordering Physician: Jamir Chris MD Referring Physician: South Dobbs MD, PhD Technologist: Enedina Barone [facility] Room Number: [id number] Indications: AFIB/FLUTTER Rhythm: Sinus Technical Quality: Fair FINDINGS Left Ventricle Normal size left ventricle. Mild concentric left ventricular hypertrophy. Abnormal septal motion consistent with an intraventricular conduction defect. Normal left ventricular ejection fraction visually estimated at >55%. Normal left ventricular diastolic filling pattern for age. Right Ventricle Normal right ventricular size and function. Right Atrium Normal right atrial size. Left Atrium Normal left atrial size. Mitral Valve Mildly calcified mitral valve annulus. Mildly thickened mitral valve leaflets. Mild mitral regurgitation. Aortic Valve Trileaflet aortic valve. Diffuse mild thickening (sclerosis) of the aortic valve cusps without reduced excursion. No aortic valve stenosis. Trace aortic regurgitation. Tricuspid Valve Structurally normal tricuspid valve. Mild tricuspid regurgitation. No evidence of pulmonary hypertension. Right ventricular systolic pressure estimated to be 29 mmHg. Pulmonic Valve Pulmonic valve not well visualized, grossly normal. Mild pulmonic regurgitation. Pericardium No pericardial effusion. Great Vessels Upper normal limits for size aortic root. Dilated inferior vena cava. CONCLUSIONS Normal size left ventricle. Mild concentric left ventricular hypertrophy. Abnormal septal motion consistent with an intraventricular conduction defect. Normal left ventricular ejection fraction visually estimated at > 55%. Normal left ventricular diastolic filling pattern for age. Normal right ventricular size and function. Normal atrial size. Mild mitral regurgitation. Trace aortic regurgitation. Mild tricuspid regurgitation. No evidence of pulmonary hypertension. Mild pulmonic regurgitation. Dilated inferior vena cava. Yanick Mccarthy M.D. (Electronically Signed) Final Date: 22 Sep 2017 18:46 MEASUREMENTS (Male / Female) Normal Values 2D ECHO LV Diastolic Diameter PLAX 4.3 cm 4.2 - 5.9 / 3.9 - 5.3 cm LV Systolic Diameter PLAX 3.0 cm 2.1 - 4.0 cm LV Fractional Shortening PLAX 30.2 % 25 - 46 % LV Ejection Fraction 2D Teich 57.9 % IVS Diastolic Thickness 1.1 cm LVPW Diastolic Thickness 1.1 cm LV Relative Wall Thickness 0.5 RV Internal Dim ED PLAX 3.1 cm 1.9 - 3.8 cm LVOT Diameter 2.0 cm Aortic Root Diameter 3.5 cm LA Systolic Diameter LX 2.6 cm 3.0 - 4.0 / 2.7 - 3.8 cm LA Volume 43.0 cm 18 - 58 / 22 - 52 cm DOPPLER AV Peak Velocity 129.0 cm/s AV Peak Gradient 6.7 mmHg AV Mean Velocity 90.9 cm/s AV Mean Gradient 4.0 mmHg AV Velocity Time Integral 22.5 cm LVOT Peak Velocity 87.7 cm/s LVOT Peak Gradient 3.1 mmHg LVOT Mean Velocity 55.9 cm/s LVOT Mean Gradient 1.0 mmHg LVOT Velocity Time Integral 15.0 cm LVOT Stroke Volume 47.1 cm AV Area Cont Eq vti 2.1 cm AV Area Cont Eq pk 2.1 cm MV Peak Velocity 72.7 cm/s MV Peak Gradient 2.1 mmHg MV Mean Velocity 43.0 cm/s MV Mean Gradient 1.0 mmHg Mitral E Point Velocity 63.1 cm/s Mitral A Point Velocity 40.5 cm/s Mitral E to A Ratio 1.6 MV PHT Velocity 76.6 cm/s MV Deceleration [place] 353.0 cm/s MV Pressure Half Time 65.1 ms MV Area PHT 3.4 cm MV Deceleration Time 214.0 ms TR Peak Velocity 243.0 cm/s TR Peak Gradient 23.6 mmHg Right Atrial Pressure 5.0 mmHg Pulmonary Artery Systolic Pressu 28.6 mmHg Right Ventricular Systolic Press 28.6 mmHg PV Peak Velocity 73.3 cm/s PV Peak Gradient 2.1 mmHg PV Mean Velocity 52.2 cm/s PV Mean Gradient 1.0 mmHg PV Velocity Time Integral 14.1 cm LV E' Lateral Velocity 11.8 cm/s Mitral E to LV E' Lateral Ratio 5.3 LV E' Septal Velocity 6.5 cm/s Mitral E to LV E' Septal Ratio 9.7
[2017-09-22 22:44] VITALS: BP 128/78
[2017-09-23 06:47] VITALS: BP 128/74
[2017-09-23 07:48] LABS: ABSOLUTE BASOPHIL COUNT 0 /CUMM (0.0-0.2); ABSOLUTE EOSINOPHIL COUNT 0.2 /CUMM (0.0-0.7); ABSOLUTE GRANULOCYTE CT 7.1 /CUMM (1.4-6.5); ABSOLUTE LYMPH COUNT 1.2 /CUMM (1.2-3.4); ABSOLUTE MONOCYTE COUNT 0.7 /CUMM (0.10-0.60); BASOPHIL % 0.2 % (0.0-2.0); EOSINOPHIL % 1.7 % (0-5); GRANULOCYTE % 77.5 % (42.2-75.2); HEMATOCRIT 35.4 % (37-47); MEAN CORPUSCULAR HGB 28.9 PG (27.0-31.0); MEAN CORPUSCULAR HGB CONC 33.4 G/DL (33.0-37.0); MEAN CORPUSCULAR VOLUME 86.5 FL (81.0-99.0); MEAN PLATELET VOLUME 7.9 FL (7.4-10.4); PLATELET COUNT 245 /CUMM (130-400); RBC DISTRIBUTION WIDTH 14.2 % (11.5-14.5); RED BLOOD CELL CT 4.09 /CUMM (4.20-5.40); WHITE BLOOD CELL COUNT 9.2 /CUMM (4.8-10.8)
--- NOTE | 2017-09-23 09:36 | PN- Housestaff ---
WangAubrey 09/23/17 0935: Subjective Follow-up For: Joleen. fib with RVR Subjective: States that she is not feeling as well as the previous day. Continues to refuse anti-coagulation. Patient continues to be in A. fib with RVR, asymptomatic. Discussed at length about the risks involved including and not limited to tachycardia related cardiomyopathy, risk of cardiac arrest, risk of and risk of debilitating stroke. Patient states understanding of the situation, and continues to refuse any interventions. She notes, "I want my body to heal naturally". At this point, she is reluctant and extremely hesitant to use any medical interventions to slow her heart rate are thin her blood. Continues to have pain in her left hip, secondary to arthritis. She does state that her family compelling her regarding the aforementioned medical interventions is making her more stressed and sicker. Review of Systems Constitutional: Reports: see HPI. Objective Last 24 Hrs of Vital Signs/I&O Vital Signs Date Time Temp Pulse Resp B/P B/P Pulse O2 O2 Flow FiO2 Mean Ox Delivery Rate 09/23 0647 97.7 108 18 128/74 95 Room Air 09/22 2244 98.5 71 16 128/78 96 Room Air 09/22 1600 98 Room Air 09/22 1500 98.3 78 20 112/62 98 Intake & Output 09/23 1600 09/23 0800 09/23 0000 Intake Total 380 Output Total 1100 Balance -1100 380 Intake, Oral 380 Output, Urine 1100 Patient 158 lb Weight Weight Bed scale Measurement Method Physical Exam General Appearance: Alert, Oriented X3, Cooperative Cardiovascular: Normal S1, Normal S2, tachycardic, irregularly irregular. Lungs: Clear to Auscultation, Normal Air Movement Abdomen: Normal Bowel Sounds, Soft, No Tenderness Extremities: No Clubbing, No Cyanosis, No Edema Current Medications: Current Medications Sig/Telly Start time Last Medication Dose Route Stop Time Status Admin Heparin Sodium 25,000 UNIT Q24H 09/21 1900 AC (Porcine) IV Sodium Chloride 500 ML Sodium Chloride 500 ML BOLUS ONE 09/23 0830 DC 09/23 IV 09/23 09 0900 Last 24 Hrs of Lab/Bridger Results Last 24 Hrs of Labs/Mics: Laboratory Tests 09/23/17 0640: Anion Gap 6, Estimated GFR > 60, BUN/Creatinine Ratio 25.0, Magnesium 1.9, Troponin I 0.02, Thyroxine (T4) 9.5, Total T3 0.85 L, CBC w Diff NO MAN DIFF REQ, RBC 4.09 L, MCV 86.5, MCH 28.9, MCHC 33.4, RDW 14.2, MPV 7.9, Gran % 77.5 H, Lymphocytes % 13.3 L, Monocytes % 7.3, Eosinophils % 1.7, Basophils % 0.2, Absolute Granulocytes 7.1 H, Absolute Lymphocytes 1.2, Absolute Monocytes 0.7 H, Absolute Eosinophils 0.2, Absolute Basophils 0 09/22/17 1400: Urinalysis LIGHT H, Urine Color YEL, Urine Clarity HAZY H, Urine pH 6.0, Ur Specific Sunset 1.020, Urine Protein TRACE H, Urine Ketones TRACE H, Urine Nitrite NEG, Urine Bilirubin NEG, Urine Urobilinogen 0.2, Ur Leukocyte Esterase SMALL H, Ur Microscopic SEDIMENT EXAMINED, Urine RBC RARE, Urine WBC 5-10 H, Ur Epithelial Cells MANY H, Urine Bacteria MANY H, Hyaline Casts RARE H, Granular Casts 1-3 H, Urine Mucus RARE, Urine Hemoglobin NEG, Urine Glucose NEG Assessment/Plan Assessment: Gonffpfhnlf-cimw-nau woman was brought in by her daughter after sustaining a fall at home while going downstairs. This was attributed to her severe arthritis and left hip. While in the ED patient was noted to be in rapid atrial fibrillation and subsequently was found to be hypotensive to 72/54. She received multiple boluses, with subsequent rise in her blood pressure. She is admitted to telemetry for evaluation and treatment of rapid atrial fibrillation. 1. A. fib with RVR. Discussed at length about the risks involved including and not limited to tachycardia related cardiomyopathy, risk of cardiac arrest, risk of and risk of debilitating stroke. Patient states understanding of the situation, and continues to refuse any interventions. She notes, "I want my body to heal naturally". At this point, she is reluctant and extremely hesitant to use any medical interventions to slow her heart rate and thin her blood. She further states, "I understand that I may from this, but I strongly believe that I will not from this". She exhibits strong beliefs and states that she prays a lot for herself and everyone around. She is able to understand and reiterate potential risks and benefits. She states she is an avid reader and understands the consequences. From discussion with the son, it seems patient has an unsafe living environment at home and she may not be an ideal candidate for home discharge. Patient is adamant that she will go to home and would not want physical therapy at home. She also notes," if it is my time, I will go". Per the family, patient has not been depressed in the recent past but does live alone, and never cause anyone for help. Her most recent fall this Wednesday; she was crawling on floor in pain for 22 hours, and did not call his son for help. At this point, we will request psychiatry evaluation to help us with assessment of her decision-making capacity as well as evaluation for any subclinical/ underlying element of depression. 2. Altered thyroid function. Apathetic hyperthyroidism, especially in the setting of new atrial fibrillation as a concern. Although, her free T4 levels are only borderline high (considered as normal in most labs). Her normal TSH argues against thyroid etiology, however, with no baseline TSH-this could be a new low TSH for her. We'll check total T4 levels and T3 uptake levels. A calculated free T4 index may be more reliable than the measured one. She may benefit from an endocrinology evaluation as an outpatient, if she agrees. 3. Recurrent falls. PT re-evaluation. DNR/DNI. Patient refuses anticoagulant. Regular diet. Problem List: 1. Atrial fibrillation with RVR Pain Ratin Pain Location: Left hip Pain Goal: Pain 4 or less Pain Plan: prn Tomorrow's Labs & Rationales: Not needed LjBairon carrillo 09/23/17 1354: Attending MD Review Statement Attending Statement Attending MD Statement: examined this patient, discuss w/resident/PA/LICENSED REACTOR OPERATOR, agreed w/resident/PA/LICENSED REACTOR OPERATOR, discussed with family, reviewed EMR data (avail), discussed with nursing, discussed with case mgmt, reviewed images, amended to note Attending Assessment/Plan: Patient still reluctant to take her meds. Son bedside. Patient and family dsicussed at length about ongoing medical management. Patient refused them calmly. Cardiology noted. Discussed with son and housestaff who felt she might benefit from pyschiatry intervention. Please obtain pysch evaluation. Continue monitor her heart rate and if she wishes to leave she can leave against medical advice.
--- NOTE | 2017-09-23 10:42 | PN- Cardiology ---
Subjective Subjective: * The patient feels her heart beating fast and has a non-descript feeling of not being quite as well as yesterday. * She is now in atrial fibrillation with increased heart rate. * The patient understands her problem and continues to adamantly refuse medications of procedures. Objective Vital Signs and I&Os Vital Signs Date Time Temp Pulse Resp B/P B/P Pulse O2 O2 Flow FiO2 Mean Ox Delivery Rate 09/23 0647 97.7 108 18 128/74 95 Room Air 09/22 2244 98.5 71 16 128/78 96 Room Air 09/22 1600 98 Room Air 09/22 1500 98.3 78 20 112/62 98 Intake & Output 09/23 1600 09/23 0800 09/23 0000 09/22 1600 09/22 0800 09/22 0000 Intake Total 380 600 200 350 Output Total 1100 Balance -1100 380 600 200 350 Intake, IV 250 Intake, Oral 380 600 200 100 Number 1 Bowel Movements Output, Urine 1100 Patient 158 lb 159 lb Weight Weight Bed scale Bed scale Measurement Method Physical Exam: General: WD/WN female in NAD; alert and oriented x 3 HEENT: NC/AT, PERRL, EOMI Neck: no JVD, no carotid bruit Heart: irregularly irregular with increased heart rate Lungs: clear bilaterally ABdomen: soft, NT, +ve bowel sounds Extremities: 1+ left LE edema Assessment/Plan Assessment/Plan * This patient has newly discovered atrial fibrillation. I am convince that it is paroxysmal and she has likely been going in and out of this for a significant period of time. Anticoagulation and rate control are both indicated from a medical standpoint but the patient understands her situation and the medical risks and still refuses drug therapy of other interventions. There is no point forcing a medication which she will opt to not take at home. I think she will need to come to the realization based on how she feels that she needs help. * The patient has a normal EF on echocardiograpy. * The patient is mildly hyperthyroid and may benefit from an endocrinology consultation. Continue telemetry? Yes
--- NOTE | 2017-09-23 12:02 | Cons- Psychiatry ---
Psychiatric Consult Date of Consult: 09/23/17 Reason for Consult: capacity to refuse treatment Allergies: Coded Allergies: No Known Allergies (09/20/17) Past History Past Medical History Neurological: dizziness EENT: NONE Cardiovascular: NONE Respiratory: NONE Gastrointestinal: NONE Hepatic: NONE Renal: NONE Musculoskeletal: arthritis lle- from hip down (arthritis) Psychiatric: NONE Endocrine: hypothyroidism Blood Disorders: NONE Cancer(s): NONE INSPECTOR OUTSIDE PRODUCTION/Reproductive: NONE Past Surgical History Surgical History: tonsillectomy Assessment/Plan Impression: Pt is an 87 y/o F with PMH severe arthritis who presented BIB family s/p mechanical fall. Pt found to be in Afib with RVR which cardiology believes is ongoing and paroxysmal. She has been refusing treatment despite all recommendations. According to chart review pt understands her diagnosis and its consequences and still refuses treatment. After her fall she sat for hours refusing to call for help. Collateral: I spoke with son who is bedside. States he was a teacher and a counselor. He has no concerns about her mental health or memory. He would like her to receive treatment but knows her well enough to capitulate because she will ultimately make up her own mind. Medical Hx: Has not seen a doctor in years. PPHx: Denies. No inpatient, outpatient, substance or suicide attempts. Denies ever having had a loss of functioning or a decreased need for sleep. Son denies she has ever been manic and considers himself well-versed. FH: Father institutionalized for severe alcoholism and violence SH: Lives on her own. Completely independent for all activities. She balances her own books. Has ason who passed from cancer. also passed. Current Medications Sig/Telly Start time Last Medication Dose Route Stop Time Status Admin Heparin Sodium 25,000 UNIT Q24H 09/21 1900 AC (Porcine) IV Sodium Chloride 500 ML Sodium Chloride 500 ML BOLUS ONE 09/23 0830 DC 09/23 IV 09/23 0929 0900 On exam, the pt is lying in bed in NAD. She is alert and oriented. She has no motor abnormalities. Her speech is rapid fire but clear. Verbose. Hard to interupt. Her mood is very good. Her affect is slightly expansive. She bristles at being pressured by doctors who tell her what to do. Her thought process is both circumstantial and tangential. Her thought content reveals no SI HI or delusions. She denies AVH. She has a highly independent style. She is defensive against the idea of being anything but completely independent. She has had bad experiences in hospitals and feels no one knows her body like she does. She does not like lying in bed here, feels she should be up moving. She is skeptical of medical treatment because in the past a loved one lived much longer than her prognosis due to care by the pt. She is able to repeat what her diagnosis is, what the pathology is and what the consequences of no treatment are. She does want to be well and is future-oriented to many activities. Her insight, while she can repeat the repercussions of no treatment, I would deem as fair, if only because her temperamental style prevents her from truly considering that a bad event could befall her. Her judgment is limited by her belief system and identity but not by major mental illness, memory impairment or psychosis. A/ This pt has a classic hyperthymic temperament vs lifelong untreated hypomania vs ADHD or a combination of these. Patients like these tend to be highly independent, energetic, put a positive spin on events, and dislike appreciating the negative aspects of given situations. Theoretically, these are defensive tactics that help the pt cope with anxiety. Hers is probably a personality style. She is not delirious, demented, psychotic, manic or depressed. I discussed that her decision is counterintuitive to the medical team given how high functioning she is. She would like to take some time to consider treatment and to obtain a second opinion. P/ -Pt has capacity to refuse treatment. She is not going to comply as an outpatient even if she lacked capacity. In this case we have to respect her autonomy. -Would assure she has access to outpatient cards f/u Page with any questions. JScruggsMD #[id number]
[2017-09-23 14:21] VITALS: BP 114/68
[2017-09-23 23:19] VITALS: BP 124/82
[2017-09-24 06:43] VITALS: BP 110/70
[2017-09-24 08:08] LABS: ABSOLUTE BASOPHIL COUNT 0 /CUMM (0.0-0.2); ABSOLUTE EOSINOPHIL COUNT 0.1 /CUMM (0.0-0.7); ABSOLUTE GRANULOCYTE CT 7.5 /CUMM (1.4-6.5); ABSOLUTE MONOCYTE COUNT 0.8 /CUMM (0.10-0.60); BASOPHIL % 0.2 % (0.0-2.0); EOSINOPHIL % 1.1 % (0-5); GRANULOCYTE % 79.2 % (42.2-75.2); HEMATOCRIT 35.7 % (37-47); MEAN CORPUSCULAR HGB 28.8 PG (27.0-31.0); MEAN CORPUSCULAR HGB CONC 32.8 G/DL (33.0-37.0); MEAN CORPUSCULAR VOLUME 87.5 FL (81.0-99.0); MEAN PLATELET VOLUME 7.9 FL (7.4-10.4); PLATELET COUNT 280 /CUMM (130-400); RBC DISTRIBUTION WIDTH 14.7 % (11.5-14.5); RED BLOOD CELL CT 4.08 /CUMM (4.20-5.40); WHITE BLOOD CELL COUNT 9.4 /CUMM (4.8-10.8)
--- NOTE | 2017-09-24 08:45 | PN- Housestaff ---
See Addendum Subjective Follow-up For: Clemencia wong with RVR Tele-Events Since Last Visit: Normal sinus rhythm and atrial fibrillation. Subjective: Complains of pain in her left hip. No palpitations, no chest pain. Reports fair appetite, ate 50% of her food this morning. Able to get out of bed to bathroom with assistance. Absolutely reluctant to the thought of going to residential facility for short-term rehabilitation. Continues to refuse use of medications. No fevers or chills overnight. Review of Systems Constitutional: Reports: see HPI. Objective Last 24 Hrs of Vital Signs/I&O Vital Signs Date Time Temp Pulse Resp B/P B/P Pulse O2 O2 Flow FiO2 Mean Ox Delivery Rate 09/24 0643 98.6 87 20 110/70 98 Room Air 09/23 2319 97.8 85 16 124/82 93 Room Air 09/23 1421 98.5 138 20 114/68 95 Room Air Intake & Output 09/24 1600 09/24 0800 09/24 0000 Intake Total Output Total 500 600 Balance -500 -600 Output, Urine 500 600 Patient 154 lb Weight Physical Exam General Appearance: Alert, Oriented X3, Cooperative Cardiovascular: Regular Rate, Normal S1, Normal S2 Lungs: Clear to Auscultation, Normal Air Movement Abdomen: Normal Bowel Sounds, Soft, No Tenderness Extremities: No Clubbing, No Cyanosis, No Edema Current Medications: Current Medications Sig/Telly Start time Last Medication Dose Route Stop Time Status Admin Heparin Sodium 25,000 UNIT Q24H 09/21 1900 AC (Porcine) IV Sodium Chloride 500 ML Sodium Chloride 500 ML BOLUS ONE 09/23 0830 DC 09/23 IV 09/23 0929 0900 Last 24 Hrs of Lab/Bridger Results Last 24 Hrs of Labs/Mics: Laboratory Tests 09/24/17 0639: Anion Gap 8, Estimated GFR > 60, BUN/Creatinine Ratio 23.8, Magnesium 1.9, CBC w Diff NO MAN DIFF REQ, RBC 4.08 L, MCV 87.5, MCH 28.8, MCHC 32.8 L, RDW 14.7 H , MPV 7.9, Gran % 79.2 H, Lymphocytes % 10.6 L, Monocytes % 8.9, Eosinophils % 1.1, Basophils % 0.2, Absolute Granulocytes 7.5 H, Absolute Lymphocytes 1.0 L, Absolute Monocytes 0.8 H, Absolute Eosinophils 0.1, Absolute Basophils 0 Assessment/Plan Assessment: Sdzzunrdstf-mmbu-rwn woman was brought in by her daughter after sustaining a fall at home while going downstairs. This was attributed to her severe arthritis and left hip. While in the ED patient was noted to be in rapid atrial fibrillation and subsequently was found to be hypotensive to 72/54. She received multiple boluses, with subsequent rise in her blood pressure. She is admitted to telemetry for evaluation and treatment of rapid atrial fibrillation. 1. A. fib with RVR. In and out of A. fib, currently rate controlled. Continues to refuse rate/rhythm controlling drugs as well as blood thinners. 2. Acute kidney injury, likely secondary to rhabdomyolysis from prolonged immobilization-now resolved. 3. Altered thyroid function. Free T4 can be unreliable. Free T4 index calculated from total t4 and t3u, which is normal. Endocrinology evaluation as an outpatient. 3. Recurrent falls. PT re-evaluation. Patient doesn't want STR. She wants to go home. She would prefer a Geritrician than a GP for her primary care when she is discharged. DNR/DNI. Patient refuses anticoagulant. Regular diet. Problem List: 1. Atrial fibrillation with RVR 2. Rhabdomyolysis Pain Ratin Pain Location: Left hip Pain Goal: Pain 4 or less Pain Plan: Patient doesn't want meds. Tomorrow's Labs & Rationales: Not needed.
--- NOTE | 2017-09-24 09:05 | PN- Cardiology ---
Subjective Subjective: * No complaints. * Psychiatry evaluation noted. * sinus rhythm this morning. Objective Vital Signs and I&Os Vital Signs Date Time Temp Pulse Resp B/P B/P Pulse O2 O2 Flow FiO2 Mean Ox Delivery Rate 09/24 0643 98.6 87 20 110/70 98 Room Air 09/23 2319 97.8 85 16 124/82 93 Room Air 09/23 1421 98.5 138 20 114/68 95 Room Air Intake & Output 09/24 1600 09/24 0800 09/24 0000 09/23 1600 09/23 0809/23 0000 Intake Total 900 380 Output Total 500 583 558 1397 Balance -500 -600 250 -1100 380 Intake, IV 500 Intake, Oral 400 380 Output, Urine 500 806 125 3280 Patient 154 lb 158 lb Weight Weight Bed scale Measurement Method Physical Exam: General: WD/WN female in NAD; alert and oriented x 3 HEENT: NC/AT, PERRL, EOMI Neck: no JVD, no carotid bruit Heart: RRR with 2/6 systolic murmur Lungs: clear bilaterally ABdomen: soft, NT, +ve bowel sounds Extremities: 1+ left LE edema Assessment/Plan Assessment/Plan General: WD/WN female in NAD; alert and oriented x 3 HEENT: NC/AT, PERRL, EOMI Neck: no JVD, no carotid bruit Heart: irregularly irregular with increased heart rate Lungs: clear bilaterally * This patient has newly discovered atrial fibrillation. I am convince that it is paroxysmal and she has likely been going in and out of this for a significant period of time. Anticoagulation and rate control are both indicated from a medical standpoint but the patient understands her situation and the medical risks and still refuses drug therapy or other interventions. There is no point forcing a medication which she will opt to not take at home. I think she will need to come to the realization based on how she feels that she needs help. * The patient has a normal EF on echocardiograpy. * The patient is mildly hyperthyroid and may benefit from an endocrinology consultation. Continue telemetry? No
[2017-09-24] MEDS ORDERED: ELIQUIS5 M1 PO (12:27)
[2017-09-24] MEDS ORDERED: TOPROL XL25 M1 PO (12:27)
--- NOTE | 2017-09-24 14:11 | Discharge Summary ---
Hospital Course Allergies: Coded Allergies: No Known Allergies (09/20/17) Discharge Instructions Medications at Discharge Discharge Medications: Start taking the following new medications: Rolling Walker (Rolling Walker) UNIT Unit SEE INSTRUCTIONS Qty = 1 No Refills Instructions: Use as instructed.
--- NOTE | 2017-09-24 20:03 | Discharge Summary ---
Visit Information Visit Dates Admission Date: 09/21/17 Discharge Date: 09/24/17 Hospital Course Course Attending Physician: Bairon Calhoun MD Primary Care Physician: Patient Has No Primary Care Dr Hospital Course: Ms. Thayer is a 87-year-old the woman with no known medical history who has not seen a PCP in 56 years presented with a fall, happened on 09/20/17 at home while going downstairs. She denied any head trauma or loss of consciousness during the fall. Patient has been suffering from arthritis especially his left hip, but has been managing it without use of any medications. Following this, patient was brought to ED by family and she was noted to be in rapid A. fib and then she dropped her blood pressure down to 72/54. She received IV saline boluses with appropriate response. On exam, patient otherwise did not appear to be sick or in any distress. Exam largely unremarkable. Lab showed WBC count of 12.9 with mild left shift. Creatinine was 1.3 and CK level is 498 and 2 sets of troponin were negative. UA showed bacteriuria. CT head/C spine No acute intra-abdominal cranial process seen. No acute fracture or dislocation. There are degenerative disc changes and facet joint arthropathy C3-C4 through C6 -C7 disc levels. CT chest abdomen pelvis did not show any traumatic injuries. 1. A. fib with rapid ventricular response. Patient did receive beta maia and amiodarone in the ED. She converted to sinus rhythm while in the ED. Patient was then admitted to telemetry. Patient was evaluated by cardiology and patient continued to refuse use of any rate controlling or blood thinning medications. Patient was explained in detail the risks involved with atrial fibrillation and fast heart rate which such as cardiac arrest, , debilitating stroke etc. Patient stated understanding of information and continued to refuse medications. Patient was evaluated by psychiatry and was deemed to have capacity to make her decisions and refuse treatments. In respect to her autonomy, she was not started on any medications. Eventually she decided to leave AGAINST MEDICAL ADVICE. She was offered a [facility], which she refused. 2. YAMLE secondary to rhabdomyolysis. She was given IV fluid hydration with subsequent normalization of her kidney function. 3. Thyroid abnormality. Follow-up with endocrinology as an outpatient. Free T4 index calculated normal. Slight abnormality of free T4, normal TSH. Patient was evaluated by physical therapy and plan was to discharge her to home with home PT. Patient will be leaving his medical advice to home with physical therapy. She was advised to call back or visit ED if she experienced palpitations, low blood pressure, dizziness, frequent falls, chest pains. DNR/DNI Heart healthy diet. Patient refused pharmacological DVT prophylaxis while inpatient. Allergies: Coded Allergies: No Known Allergies (09/20/17) Disposition Summary Disposition Principal Diagnosis: A. fib with RVR Additional Diagnosis: Thyroid lab anormality Discharge Disposition: left against medical adv Discharge Instructions General Discharge Information Code Status: Do Not Resucitate/Intubat Patient's Diet: Regular Patient's Activity: As tolerated. Follow-Up Instructions/Appts: Patient has no PCP, although she has been provided with an appointment with Dr. Mari. She should follow-up with Dr. Mari as an outpatient. She should follow-up with autism motor specialist Dr. Dobbs as an outpatient. Should she feel palpitations, low blood pressure, lightheadedness or dizziness, she should immediately call 911 or visit ED for further care. She should follow-up with psychiatry as an outpatient. Medications at Discharge Discharge Medications: Start taking the following new medications: Rolling Walker (Rolling Walker) UNIT Unit SEE INSTRUCTIONS Qty = 1 No Refills Instructions: Use as instructed. Copies To: Kamaljit MONTGOMERY,Meek Dobbs MD PHD,[place] Attending MD Review Statement Documenting Attending: Lj MONTGOMERY,Bairon
== END 2017-09-24 13:30 | disposition home health service (06) | DRG 309 ==
LOC: ERH 14:15 → ERHI 09-21 17:50 → 1NO 09-21 17:50 → ENTRNSPT 09-21 19:08 → EDTRNSPT 09-21 19:34 → EDTRNSPTSTS 09-21 19:34 → 1NO 09-21 19:38 → CMPTRNSPT 09-21 20:04 → 1NO 09-22 10:23 → ENPENDDIS 09-24 13:33 → ENTRNSPT 09-24 14:58 → EDTRNSPTSTS 09-24 15:08 → EDTRNSPT 09-24 15:08 → CMPTRNSPT 09-24 15:26
PROVIDERS: Emergency Medicine; Internal Medicine Hematology & Oncology; Physician Assistant Medical; Student in an Organized Health Care Education/Training Program
DX: I48.0 Paroxysmal atrial fibrillation (principal); N17.9 Acute kidney failure, unspecified; I95.9 Hypotension, unspecified; M62.82 Rhabdomyolysis; E05.80 Other thyrotoxicosis without thyrotoxic crisis or storm; E03.9 Hypothyroidism, unspecified; G89.29 Other chronic pain; Z66 Do not resuscitate; Z91.14 Patient's other noncompliance with medication regimen; Z91.81 History of falling; Z90.89 Acquired absence of other organs
CPT/HCPCS: 1NP; 36415; 36592; 74176; 81001; 82436; 87040; 93005; 93010; 93306; 96374; 97116-GP; 97161-GP; G8978-GP; G8979-GP; G8980-GP; J0131; J0282; J1644; J7040

== ENCOUNTER 2017-09-28 12:46 | Inpatient (IN) | payer OTHER ==
[~2017-09-28] VITALS: Ht 167.6 cm; Wt 73.6 kg
[~2017-09-28 12:46] MED LIST: ELIQUIS5 M1 PO; RW; TOPROL XL25 M1 PO
--- NOTE | 2017-09-28 13:00 | ED CARDIAC/CP/PALPITATIONS ---
History of Present Illness General Chief Complaint: Chest Pain Stated Complaint: RAPID AFIB Source: patient, family, old records, EMS Exam Limitations: no limitations Vital Signs & Intake/Output Vital Signs & Intake/Output Vital Signs Date Time Temp Pulse Resp B/P B/P Pulse O2 O2 Flow FiO2 Mean Ox Delivery Rate 09/28 1413 101/70 09/28 1345 154 96/78 09/28 1334 146 20 93/72 93 Room Air 09/28 1332 93 Room Air 09/28 1323 112/57 09/28 1300 97.7 154 20 78/42 93 Room Air Allergies Coded Allergies: No Known Allergies (09/20/17) Triage Note: PER PT SEEN HERE FEW DAYS AGO DX WITH AFIB GIVEN MEDS ?COOUMADIN AND BETA KRISHNA, REFUSES TO TAKE THEM UNTIL SHE GETS A 2ND OPINION, THIS AM PT NOTED TO BE TACHY AND MILD SOB REPORTS DECREASED PO X 2 DAYS BECAUSE SHE DOES NOT WANT TO HAVE TO PEE TOO MUCH, NOTED THIS AM TO BE IN AFIB WITH RVR UPON EMS ARRIVAL BP NOTED TO BE 08'S/50'S REFUSES IV, FLUIDS ETC UPON ED ARRIVAL PT BECOMES MORE ANXIOUS WITH TOO MUCH ACTIVITY Triage Nurses Notes Reviewed? yes HPI: Patient was recently admitted to the hospital for rapid A. fib. Patient converted to sinus rhythm and then subsequent signed out AGAINST MEDICAL ADVICE after being deemed competent and she refused medications. Patient has been having increasing weakness and fatigue. Her family came down from the [place] increments her to come back to the hospital for further treatment and to take her medications. Patient denies any chest pain or palpitations. 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 Patient does not want anything for the pain. Patient will not rate the pain. Patient denies any radiation of the pain. Patient refused all treatment by EMS. Patient states that we could to "the bare minimum.". Past History Travel History Traveled to [place] past 21 day No Medical History Any Pertinent Medical History? 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 No Review of Systems Review of Systems Constitutional: Reports: see HPI, weakness. EENTM: Reports: no symptoms. Respiratory: Reports: no symptoms. Cardiovascular: Reports: see HPI, palpitations. GI: Reports: no symptoms. Genitourinary: Reports: no symptoms. Musculoskeletal: Reports: see HPI, joint pain. Skin: Reports: no symptoms. Neurological/Psychological: Reports: no symptoms. Hematologic/Endocrine: Reports: no symptoms. Immunologic/Allergic: Reports: no symptoms. All Other Systems: Reviewed and Negative Physical Exam Physical Exam General Appearance: well developed/nourished, alert, awake, moderate distress Head: atraumatic, normal appearance Eyes: Bilateral: PERRL, EOMI. Ears, Nose, Throat: normal pharynx, normal ENT inspection, hearing grossly normal Neck: normal inspection, supple, full range of motion Respiratory: normal breath sounds, chest non-tender, no respiratory distress, lungs clear Cardiovascular: tachycardia, irregularly irregular Gastrointestinal: normal bowel sounds, soft, non-tender, no organomegaly Back: normal inspection, normal range of motion Extremities: normal inspection, normal capillary refill, normal range of motion, no edema Neurologic/Psych: no motor/sensory deficits, awake, alert, oriented x 3, normal mood/affect Skin: intact, normal color, warm/dry Core Measures ACS in differential dx? Yes CVA/TIA Diagnosis No Sepsis Present: No Sepsis Focused Exam Completed? No Progress Differential Diagnosis: AMI, atrial fibrillation, musculoskeletal pain, myocarditis, pericarditis, pneumonia, pneumothorax Plan of Care: Orders Procedure Date/time Status Heart Healthy Diet 09/28 D Active Patient Data 09/28 1427 Active ED Holding Orders 09/28 1426 Active Admit to inpatient 09/28 1426 Active Vital Signs 09/28 1426 Active Code Status 09/[address] ABD & PELVIS W/O IV CONTRAS 09/28 1424 Active Telemetry/Shock Absorption Floor Layer 09/28 1300 Active URINALYSIS 09/28 1300 Complete PARTIAL THROMBOPLASTIN TIME 09/28 1300 Complete PROTHROMBIN TIME 09/28 1300 Complete COMPREHENSIVE METABOLIC PANEL 09/28 1300 Complete CBC WITHOUT DIFFERENTIAL 09/28 1300 Complete EKG 09/28 1247 Active Current Medications Sig/Telly Start time Last Medication Dose Stop Time Status Admin Amiodarone HCl/ 360 MG Q12H 09/28 1330 AC Dextrose (Nexterone) N/A 1 UNIT (No Carrier) Heparin Sodium 25,000 UNIT Q24H 09/28 1330 CAN (Porcine) (Heparin) Sodium Chloride 500 ML Heparin Sodium/ 25,000 UNIT Q24H 09/28 1330 AC 09/28 Dextrose 09/29 1329 1420 (Heparin) Dextrose/Water 500 ML (D5W) Laboratory Tests 09/28/17 1344: Urinalysis LIGHT H, Urine Color YEL, Urine Clarity CLDY H, Urine pH 6.0, Ur Specific [place] 1.025, Urine Protein 100 H, Urine Ketones NEG, Urine Nitrite NEG, Urine Bilirubin NEG@ICTO, Urine Urobilinogen 1.0, Ur Leukocyte Esterase TRACE H, Ur Microscopic SEDIMENT EXAMINED, Urine RBC 5-10 H, Urine WBC 5-10 H , Ur Epithelial Cells MANY H, Urine Bacteria MANY H, Urine Mucus FEW, Urine Hemoglobin MOD H, Urine Glucose NEG 09/28/17 1305: Anion Gap 16, Estimated GFR 47 L, BUN/Creatinine Ratio 40.0 H, Glucose 174 H, Calcium 9.3, Total Bilirubin 1.3, AST 100 H, ALT 85 H, Alkaline Phosphatase 229 H, Total Protein 6.2 L, Albumin 2.9 L, Globulin 3.3, Albumin/Globulin Ratio 0.9 L, PT 12.9 H, INR 1.18, APTT 27, CBC w Diff MAN DIFF ORDERED, RBC 4.85, MCV 86.8, MCH 29.2, MCHC 33.7, RDW 14.5, MPV 7.8, Gran % 93.4 H, Lymphocytes % 3.7 L, Monocytes % 2.6, Eosinophils % 0.1, Basophils % 0.2, Absolute Granulocytes 19.4 H, Segmented Neutrophils 88 H, Absolute Lymphocytes 0.8 L, Lymphocytes 7 L, Monocytes 5, Absolute Monocytes 0.5, Absolute Eosinophils 0, Absolute Basophils 0, Platelet Estimate VERIFIED BY SMEAR, Normocytic RBCs VERIFIED, Normochromic RBCs VERIFIED Diagnostic Imaging: Viewed by Me: Radiology Read. Discussed w/RAD: Radiology Read. Initial ED EKG: A FIB WITH RVR Prior EKG: unchanged Rhythm Strip: atrial fibrillation Comments: Discussed with Dr. Dobbs, he recommends IV amiodarone given the fact that she is hypotensive and amiodarone should not lower the blood pressure and to start anticoagulation. Departure Departure Disposition: STILL A PATIENT Condition: Guarded Clinical Impression Primary Impression: Atrial fibrillation with RVR Secondary Impressions: Leukocytosis, Transaminitis Referrals: Patient Has No Primary Care Dr (PCP/Family) Departure Forms: Customer Survey General Discharge Information Admission Note Spoke With: Garrett Patten MD Documentation of Exam: Documentation of any treatments & extenuating circumstances including Concerns Regarding Discharge (functional status, medication knowledge or non-compliance, living conditions, etc.) that warrant an admission rather than observation: [ Amiodarone drip, heparin drip, follow-up CAT scan, cardiology consultation, telemetry monitoring, rate control] Critical Care Note Critical Care Note Critical Care Time: mins: (90 MIN)
[2017-09-28 13:18] LABS: ABSOLUTE BASOPHIL COUNT 0 /CUMM (0.0-0.2); ABSOLUTE EOSINOPHIL COUNT 0 /CUMM (0.0-0.7); ABSOLUTE GRANULOCYTE CT 19.4 /CUMM (1.4-6.5); ABSOLUTE LYMPH COUNT 0.8 /CUMM (1.2-3.4); ABSOLUTE MONOCYTE COUNT 0.5 /CUMM (0.10-0.60); BASOPHIL % 0.2 % (0.0-2.0); EOSINOPHIL % 0.1 % (0-5); GRANULOCYTE % 93.4 % (42.2-75.2); MEAN CORPUSCULAR HGB 29.2 PG (27.0-31.0); MEAN CORPUSCULAR HGB CONC 33.7 G/DL (33.0-37.0); MEAN CORPUSCULAR VOLUME 86.8 FL (81.0-99.0); MEAN PLATELET VOLUME 7.8 FL (7.4-10.4); PLATELET COUNT 410 /CUMM (130-400); RBC DISTRIBUTION WIDTH 14.5 % (11.5-14.5); RED BLOOD CELL CT 4.85 /CUMM (4.20-5.40)
[2017-09-28 13:26] LABS: HEMATOCRIT 42.2 % (37-47); WHITE BLOOD CELL COUNT 20.8 /CUMM (4.8-10.8)
[2017-09-28 13:30] LABS: PT 12.9 SEC (9.4-12.5); PTT 27 SEC (25-37)
--- NOTE | 2017-09-28 14:20 | RADIOLOGY REPORT ---
EXAMINATION: XR PORTABLE CHEST CLINICAL INFORMATION: Chest pain COMPARISON: CT 09/20/2017 TECHNIQUE: Portable frontal view of the chest was obtained. FINDINGS: There is new retrocardiac left basilar airspace opacity compared to prior, with suggestion of a small associated left pleural effusion. The right lung appears clear. No evidence of pneumothorax or overt pulmonary edema. The cardiac silhouette appears mildly enlarged for technique. Degenerative changes are noted in the spine. IMPRESSION: New left basilar airspace opacity and suggestion of small pleural effusion.
--- NOTE | 2017-09-28 14:35 | History & Physical ---
See Addendum Rosa M MONTGOMERY,Maria R 09/28/17 2325: General Information and HPI MD Statement: I have seen and personally examined ALLI THAYER and documented this H&P. The patient is a 87 year old F who presented with a patient stated chief complaint of [shortness of breath]. Source of Information: patient Exam Limitations: no limitations History of Present Illness: MS. Thyaer is an 87-year-old lady with no known past medical history and reported noncompliance with doctor visits for several years was recently admitted to [facility] (09/21-09/24) after a mechanical fall and was found to be in Atrial fibrillation at that time, refused any medical treatment and left against medical advise, is brought in by the family members for evaluation of dyspnea and decreased PO intake. She came back today d/t her family's insistence after she spent the whole night laying on the floor. Patient states that yesterday around 4:30pm, she glided in the bathroom and wasn't able to get up the floor. 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 She held her urine and stools all night long. This morning her daughter called her but couldn't get a hold of her so she decided to pay a visit. That's when she found her mother laying on the floor (10:00am), states her breathing was labored and she was in extreme pain (lower ext) and decided to bring her to the ER. Patient denies hitting her head or LOC. Also has been trying to avoid eating or drinking because she does not want to get up and go to the bathroom because of lower ext pain. Denies any abdominal pain, nausea, vomiting, diarrhea, cough, sputum production or pain/burning with urination. 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 EENTM: Reports: no symptoms. Cardiovascular: Reports: palpitations. Respiratory: Reports: short of breath. GI: Reports: no symptoms. Genitourinary: Reports: no symptoms. Musculoskeletal: Reports: joint pain. Skin: Reports: no symptoms. Neurological/Psychological: Reports: no symptoms. Hematologic/Endocrine: Reports: no symptoms. Immunologic/Allergic: Reports: no symptoms. All Other Systems: Reviewed and Negative Exam & Diagnostic Data Last 24 Hrs of Vital Signs/I&O Vital Signs Date Time Temp Pulse Resp B/P B/P Pulse O2 O2 Flow FiO2 Mean Ox Delivery Rate 09/28 1615 118 20 89/56 91 Room Air 09/28 1507 126 91/56 09/28 1451 11 103/73 09/28 1438 97.4 138 20 103/73 93 Room Air 09/28 1435 138 103/73 09/28 1413 101/70 09/28 1345 154 96/78 09/28 1334 146 20 93/72 93 Room Air 09/28 1332 93 Room Air 09/28 1323 112/57 09/28 1300 97.7 154 20 78/42 93 Room Air Intake & Output 09/28 1600 09/28 0800 09/28 0000 Intake Total 1000 Output Total Balance 1000 Intake, IV 1000 Patient 145 lb Weight Physical Exam General Appearance Alert, Oriented X3, Cooperative, No Acute Distress Skin No Rashes, No Breakdown HEENT Atraumatic, PERRLA, EOMI Cardiovascular Normal S1, Normal S2, IRREGULARLY IRREGULAR Lungs Crackles bilateral lung griffiths Abdomen Normal Bowel Sounds, Soft, No Tenderness Extremities No Clubbing, No Cyanosis, Normal Pulses, trace pedal edema Sepsis Peripheral Pulse Location: Radial Sepsis Peripheral Pulse Exam: Normal Sepsis Cap Refill Exam: <2 Sec Last 24 Hrs of Labs/Bridger: Laboratory Tests 09/28/17 1620: Creatine Kinase 1450 H, Troponin I 0.04, Duy-A-[id number] Pept 9480 H 09/28/17 1344: Urinalysis LIGHT H, Urine Color YEL, Urine Clarity CLDY H, Urine pH 6.0, Ur Specific [place] 1.025, Urine Protein 100 H, Urine Ketones NEG, Urine Nitrite NEG, Urine Bilirubin NEG@ICTO, Urine Urobilinogen 1.0, Ur Leukocyte Esterase TRACE H, Ur Microscopic SEDIMENT EXAMINED, Urine RBC 5-10 H, Urine WBC 5-10 H , Ur Epithelial Cells MANY H, Urine Bacteria MANY H, Urine Mucus FEW, Urine Hemoglobin MOD H, Urine Glucose NEG 09/28/17 1305: Anion Gap 16, Estimated GFR 47 L, BUN/Creatinine Ratio 40.0 H, Glucose 174 H, Lactic Acid 6.6 H, Calcium 9.3, Total Bilirubin 1.3, AST 100 H, ALT 85 H, Alkaline Phosphatase 229 H, Total Protein 6.2 L, Albumin 2.9 L, Globulin 3.3, Albumin/Globulin Ratio 0.9 L, PT 12.9 H, INR 1.18, APTT 27, CBC w Diff MAN DIFF ORDERED, RBC 4.85, MCV 86.8, MCH 29.2, MCHC 33.7, RDW 14.5, MPV 7.8, Gran % 93.4 H, Lymphocytes % 3.7 L, Monocytes % 2.6, Eosinophils % 0.1, Basophils % 0.2, Absolute Granulocytes 19.4 H, Segmented Neutrophils 88 H, Absolute Lymphocytes 0.8 L, Lymphocytes 7 L, Monocytes 5, Absolute Monocytes 0.5, Absolute Eosinophils 0, Absolute Basophils 0, Platelet Estimate VERIFIED BY SMEAR, Normocytic RBCs VERIFIED, Normochromic RBCs VERIFIED Diagnostic Data CXR Results New left basilar airspace opacity and suggestion of small pleural effusion. Assessment/Plan Assessment: MS. Thayer is an 87-year-old lady with no known past medical history and reported noncompliance with doctor visits for several years was recently admitted to [facility] (09/21-09/24) after a mechanical fall and was found to be in Atrial fibrillation at that time, refused any medical treatment and left against medical advise, is brought in by the family members for evaluation of dyspnea and decreased PO intake. At the time of admission she was afebrile but tachycardic and hypotensive with elevated WBC count to 20.8, lactic acid of 6.6, transaminitis with elevated Alk.phos and normal bilirubin level. Ct abd and pelvis was negative for any acute pathology, but positive for bilateral pleural effeusions and infiltrates/ atelactasis. She also had an elevated Pro-BNP and was found to have crackles on ausculation. Atrial fibrillation with rapid ventricular rate secondary to underlying sepsis etiology possible pneumonia in the absence of rate controlling medications. Acute CHF secondary to RVR. problem list: Sepsis 2/2 to ??pneumonia. She also had a dirty UA but denied any urinary symptoms. Afib with RVR; likely sec to sepsis Acute CHF Transaminitis Rhabdomyolysis - Admit to ICU for close monitoring and for possible central line placement. - Heart rate was initially planned to be controlled with IV lopressor pushes per cardiology, shhe was give IV lopressor 5mg once but given persistent hypotension patient was started on IV amiodarone drip. - Will discontinue IV heparin and start PO Eliquis - Trop and EKG x 3 to r/o ACS - repeat echocardiogram. - Patient was given 2 litres of NS boluses in the ER. Will avoid giving further fluid boluses as she clinically seems to be in CHF with elevated probnp, crackles on lung exam and reports dyspnea. - Trend lactic acid. - Will empirically cover with IV unasyn. - Follow up blood and urine cultures. - Repeat CPK in am. - Repeat LFTs in am. DVT ppx; Patient is on eliquis Heart Healthy Diet As Ranked By This Provider Problem List: 1. Leukocytosis 2. Atrial fibrillation with RVR Core Measures/Misc (01/17) Acute Coronary Syndrome ACS Diagnosis: No Congestive Heart Failure Congestive Heart Failure Diagnosis No Cerebrovascular Accident CVA/TIA Diagnosis: No VTE (View Protocol) VTE Risk Factors Age>40 No Mechanical VTE Prophylaxis d/t N/A MechProphylax Ordered No VTE Pharm Prophylaxis d/t NA PharmProphylax ordered Sepsis (View protocol) Sepsis Present: Yes If YES complete Sepsis Event Note If YES complete Sepsis Event Note Michael Diaz 09/28/17 1630: Core Measures/Misc (01/17) Sepsis (View protocol) If YES complete Sepsis Event Note If YES complete Sepsis Event Note Resident Review Statement Resident Statement: examined this patient, discussed with sports internship, reviewed EMR data (avail), discussed with case mgmt Other Findings: 87-year-old the woman with no known past medical history, no previous medical follow up, [facility]. At that time she was found to be in atrial fibrillation with rapid ventricular rate and treated with beta-maia and amiodarone. Apparently around [address] to the bathroom she fell and was not able to get up on her. Her family found her on the floor around 10 AM this morning and convinced her to come to the hospital. She states that she was alert and awake and did not experience any loss of consciousness and was aware of all the events that were happening overnight. Per EMR she left AMA on September 24 and was not amenable to rate controlling or blood thinning medications. States that she lives at home and has been having left hip pain and as she did not want to walk to the bathroom she has been decreasing her p.o. intake so she did not have to walk to the bathroom. On interview she denies chest pain, shortness of breath, abdominal pain, nausea, vomiting, fever, chills, headaches. Vitals on admission temperature 97.7 heart rate 154 blood pressure 78/42--> 91/ 56 after 2.5L NS On examination she is alert and oriented 3, dry mucous membranes, CVS S1-S2 irregularly irregular tachycardic, bibasilar crackles noted with elevated JVD, no pedal edema, abdomen soft nontender normal bowel sounds. Left leg pedal pulse heard through Doppler right leg pedal pulses palpable. Skin cool to touch bilaterally, stage I ulcer noted on buttocks crease. Labs significant for leukocytosis with left shift with no bandemia, BUN 44, creatinine 1.1, elevated transaminitis, ALP 229, CPK 1450, proBNP 9480, lactic acid 6.6-->1.4 EKG: a.fib with RVR CXR : new retrocardiac left basilar airspace opacity compared to prior, with suggestion of a small associated left pleural effusion Pelvis Without IV contrast: Diverticulosis of the colon without acute change of the bowel. Liver is normal in size, shape, and attenuation. No focal hepatic lesion or biliary ductal dilatation is present. Right lobe of liver measures 20 cm superior inferior. The gallbladder is unremarkable with no evidence of radiopaque gallstones, gallbladder wall thickening, or obvious pericholecystic inflammatory changes. Assessment: Atrial fibrillation with rapid ventricular rate secondary to underlying sepsis etiology possible pneumonia vs UTI, in the absence of rate controlling medications. Acute CHF (likely right heart failures (elevated JVD, transaminitis no peripheral edema) secondary to RVR. problem list: Sepsis Afib with RVR acute CHF Transaminitis Rhabdomyolysis plan: Admit to ICU for close monitoring and for possible central line placement ( patient stated that she would consider it if needed) Spoke to Dr. Dobbs who recommended IV amiodarone drip and to dc IV heparin and start PO Eliquis Trend trop and EKG to r/o ACS Will be cautious with IVF as she clinically noted to be in CHF with elevated probnp Follow up blood and urine cultures, will start IV unasyn emperically given her presentation to cover for gram positive/neg and anaerobes. DVT ppx with eliquis heart healthy diet Edita MONTGOMERY,[facility] 09/28/172006: Core Measures/Misc (01/17) Sepsis (View protocol) If YES complete Sepsis Event Note If YES complete Sepsis Event Note Attending MD Review Statement Attending Statement Attending MD Statement: examined this patient, discuss w/resident/PA/DESKTOP ENGINEER, agreed w/resident/PA/DESKTOP ENGINEER, discussed with family, reviewed EMR data (avail), discussed with nursing, discussed with case mgmt, reviewed images, amended to note Attending Assessment/Plan: Seen and examined independently Discussed with ICU team, patient MS. Thayer is an 87-year-old lady with no known past medical history and reported noncompliance with doctor visits for several years was recently admitted to [facility] (09/21-09/24) after a mechanical fall and was found to be in Atrial fibrillation at that time, is brought in by the family members for evaluation of dyspnea and decreased PO intake General Appearance Alert, Oriented X3, Cooperative, No Acute Distress Skin No Rashes, No Breakdown HEENT Atraumatic, PERRLA, EOMI Cardiovascular Normal S1, Normal S2, IRREGULARLY IRREGULAR Lungs Crackles bilateral lung griffiths Abdomen Normal Bowel Sounds, Soft, No Tenderness Extremities No Clubbing, No Cyanosis, Normal Pulses, trace pedal edema ISSUES * Pt with mild subclinical hyperthyroidism with Chronic afib with increased ventricular response * Mild hypotension with increased jvd, crackles with left more than rt effusion consistant with low cardiac output, from rapid afib, and pt is being attempted with chemical cardioversion by amio * Left lower lobe atx with effsusion due to pulm edema no clinical evidence of aspiration pna but need to rule out * No active evidence of pyogenic pna or any other bacterial infection * Transaminitis due to liver congestion and ischemia from low cardiac output * Recent fall with rhabdo, with mild pain in the left thigh * LActic acidosis due to poor cardiac out put which is improving REC Pt absolutely wishes no invasive work up, wishes no bass, tlc or electrical cardioversion, or any life support (wishes to see [facility] with no agg measures, Not depressed and completely competent to make her decisions, as she says she is 87 yrs old without any sig medical interventions and wishes to keep it that wasy) Will admit to icu mainly to cont amio drip Start anticoag with heparin if efrain Check lower ext ultrasound if pt permits Rpt labs in am Ok with unasyn for 48 hrs, pt may have a UTI and will await culture Keep hob up Recheck tsh, free t4 Ok to use low dose betablocker if needed RPt cxr in am DC ivf once the current iv bag is complete REcheck echo DNR /dni No pressors, no tlc and no other life support meds except oxygen for now Discussed with cardio
--- NOTE | 2017-09-28 17:25 | Cons- CRCU ---
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 Surgical History Surgical History: tonsillectomy Psychosocial History Services at Home: None ETOH Use: denies use Illicit Drug Use: denies illicit drug use Exam & Diagnostic Data Last 24 Hrs of Vital Signs/I&O Vital Signs Date Time Temp Pulse Resp B/P B/P Pulse O2 O2 Flow FiO2 Mean Ox Delivery Rate 09/28 1718 98.7 118 20 86/60 95 Nasal 2.0L Cannula 09/28 1718 118 89/56 09/28 1615 118 20 /56 91 Room Air 09/28 1507 126 91/56 09/28 1451 11 103/73 09/28 1438 97.4 138 20 103/73 93 Room Air 09/28 1435 138 103/73 09/28 1413 101/70 09/28 1345 154 96/78 09/28 1334 146 20 93/72 93 Room Air 09/28 1332 93 Room Air 09/28 1323 112/57 09/28 1300 97.7 154 20 78/42 93 Room Air Intake & Output 09/28 1600 09/28 0800 09/28 0000 Intake Total 1000 Output Total Balance 1000 Intake, IV 1000 Patient 65.771 kg Weight Assessment/Plan CRCU Consult Acknowledgment - Thank you for your consult request.
--- NOTE | 2017-09-28 17:25 | PN- Student ---
Subjective Subjective: Ronit Thayer is an 87 y/o female with a PMH of hypothyroidism and osteoarthritis , who was recently admitted at [facility] (09/21 & left AMA on 09/24) because of a fall, and in further workup was found to have afib. During her stay she refused any rate controlling or blood thinning medications, she was fully aware of the risks and was deemed to have capacity according to psych evaluation , so no medications were administered besides the beta maia and amiodarone received in the ED. During this admission she was also found to have YAMEL which was attributed to rhadbmyolysis. She came back today d/t her family's insistence after she spent the whole night laying on the floor. Patient states that yesterday around 4:30pm, she glided in the bathroom and wasn't able to get up the floor. She started to creep all over the house, trying to get a hold of something that could serve as a setter molding and coremaking machines in order for her to get back on her feet but she wasn't able to find anything. She held her urine and stools all night long. This morning her daughter called her but couldn't get a hold of her so she decided to pay a visit. That's when she found her mother laying on the floor (10:00am). When her family was helping her get up , she was in a lot of pain (which she attributes to her LE arthritis) and was noted to have labored breathing. The patient also reported blurry vision at the moment and denied any head trauma. She also denies any chest pain, dizziness, vertigo, nausea, vomiting, chills, fever, confusion, headaches, changes in her vision or hearing, or changes in her urine or stool. She does mentions that she has been eating and drinking less in order to decrease her trips to the bathroom as it is so painful for her to walk. Allergies: pollen, paper Meds: Glucosamine supplement (unknown dose) FH: Non contributory Surgical Hx: Adenoidectomy, tonsilectomy Social Hx: Patient lives alone and is completely independent. She does states that she started using a walker and a cane after her last admission at the hospital. She has no hx of travel. She is a former smoker (> 50yrs ago) and denies alcohol and recreational drug use. ROS: As stated in HPI, remainder is negative. Objective Objective: Vital Signs Date Time Temp Pulse Resp B/P B/P Pulse O2 O2 Flow FiO2 Mean Ox Delivery Rate 09/29 0400 93 Nasal 2.0L Cannula 09/29 0000 96 Nasal 2.0L Cannula 09/29 0000 98.7 90 22 98/47 96 Nasal 2.0L Cannula 09/28 2341 107 19 98/62 09/28 1900 95 Nasal 2.0L Cannula 09/28 1900 97.2 114 14 92/70 95 Nasal 2.0L Cannula 09/28 1818 128 18 90/62 95 Nasal 2.0L Cannula 09/28 1719 98.7 118 20 86/60 95 Nasal 2.0L Cannula 09/28 1718 118 89/56 09/28 1615 118 20 89/56 91 Room Air 09/28 1507 126 91/56 09/28 1451 11 103/73 09/28 1438 97.4 138 20 103/73 93 Room Air 09/28 1435 138 103/73 09/28 1413 101/70 09/28 1345 154 96/78 09/28 1334 146 20 93/72 93 Room Air 09/28 1332 93 Room Air 09/28 1323 112/57 09/28 1300 97.7 154 20 78/42 93 Room Air ED Intake and Output 09/29 0000 09/28 1200 Intake Total 1333.2 Output Total Balance 1333.2 Intake, IV 1333.2 Patient 168 lb Weight Weight Bed scale Measurement Method Laboratory Tests 09/29 09/29 09/28 09/28 0355 0030 1745 1620 Chemistry Sodium (137 - 145 mmol/L) 140 Potassium (3.5 - 5.1 mmol/L) 3.7 Chloride (98 - 107 mmol/L) 103 Carbon Dioxide (22 - 30 mmol/L) 24 Anion Gap (5 - 16) 12 BUN (7 - 17 mg/dL) 45 H Creatinine (0.5 - 1.0 mg/dL) 1.1 H Estimated GFR (>60 ml/min) 47 L BUN/Creatinine Ratio (7 - 25 %) 40.9 H Lactic Acid (0.7 - 2.1 mmol/L) 1.9 Creatine Kinase (30 - 135 U/L) 1450 H Troponin I (< 0.11 ng/ml) 0.03 0.04 Ktr-G-Tricxyjyzfv Pept (<125 pg/mL) 9480 H Hematology CBC w Diff MAN DIFF ORDERED WBC (4.8 - 10.8 /CUMM) 18.4 H RBC (4.20 - 5.40 /CUMM) 4.02 L Hgb (12.0 - 16.0 G/DL) 11.5 L Hct (37 - 47 %) 35.1 L MCV (81.0 - 99.0 FL) 87.4 MCH (27.0 - 31.0 PG) 28.7 MCHC (33.0 - 37.0 G/DL) 32.8 L RDW (11.5 - 14.5 %) 15.1 H Plt Count (130 - 400 /CUMM) 368 MPV (7.4 - 10.4 FL) 7.9 Gran % (42.2 - 75.2 %) 86.0 H Lymphocytes % (20.5 - 51.1 %) 7.4 L Monocytes % (1.7 - 9.3 %) 6.1 Eosinophils % (0 - 5 %) 0.4 Basophils % (0.0 - 2.0 %) 0.1 Absolute Granulocytes (1.4 - 6.5 /CUMM) 15.8 H Segmented Neutrophils (42.2 - 75.2 %) 89 H Absolute Lymphocytes (1.2 - 3.4 /CUMM) 1.4 Lymphocytes (20.5 - 51.1 %) 7 L Monocytes (1.7 - 9.3 %) 3 Absolute Monocytes (0.10 - 0.60 /CUMM) 1.1 H Eosinophils (0 - 5.0 %) 1 Absolute Eosinophils (0.0 - 0.7 /CUMM) 0.1 Absolute Basophils (0.0 - 0.2 /CUMM) 0 Platelet Estimate (ADEQUATE) ADEQUATE Polychromasia 1+ Hypochromic-Microcytic 1+ Poikilocytosis 2+ Ovalocytes 1+ [place] Cells 1+ Other Body Source Fld Total RBCs Counted (%) 100 09/28 1344 Urines Urinalysis LIGHT H Urine Color (YEL,AMB,STR) YEL Urine Clarity (CLEAR) CLDY H Urine pH (5.0 - 8.0) 6.0 Ur Specific [place] (1.001 - 1.035) 1.025 Urine Protein (NEG,<30 MG/DL) 100 H Urine Ketones (NEG) NEG Urine Nitrite (NEG) NEG Urine Bilirubin (NEG) NEG@ICTO Urine Urobilinogen (0.1 - 1.0 EU/dl) 1.0 Ur Leukocyte Esterase (NEG) TRACE H Ur Microscopic SEDIMENT EXAMINED Urine RBC (0 - 5 /HPF) 5-10 H Urine WBC (0 - 2 /HPF) 5-10 H Ur Epithelial Cells (NONE,FEW) MANY H Urine Bacteria (NEG/NONE) MANY H Urine Mucus (FEW,NONE) FEW Urine Hemoglobin (NEG) MOD H Urine Glucose (N MG/DL) NEG 09/28 1305 Chemistry Sodium (137 - 145 mmol/L) 137 Potassium (3.5 - 5.1 mmol/L) 4.5 Chloride (98 - 107 mmol/L) 99 Carbon Dioxide (22 - 30 mmol/L) 22 Anion Gap (5 - 16) 16 BUN (7 - 17 mg/dL) 44 H Creatinine (0.5 - 1.0 mg/dL) 1.1 H Estimated GFR (>60 ml/min) 47 L BUN/Creatinine Ratio (7 - 25 %) 40.0 H Glucose (65 - 99 mg/dL) 174 H Lactic Acid (0.7 - 2.1 mmol/L) 6.6 H Calcium (8.4 - 10.2 mg/dL) 9.3 Total Bilirubin (0.2 - 1.3 mg/dL) 1.3 AST (14 - 36 U/L) 100 H ALT (9 - 52 U/L) 85 H Alkaline Phosphatase (<127 U/L) 229 H Total Protein (6.3 - 8.2 g/dL) 6.2 L Albumin (3.5 - 5.0 g/dL) 2.9 L Globulin (1.9 - 4.2 gm/dL) 3.3 Albumin/Globulin Ratio (1.1 - 2.2 %) 0.9 L TSH (0.270 - 4.200 uIU/mL) 5.160 H Free T4 (0.85 - 1.93 ng/dL) 2.16 H Coagulation PT (9.4 - 12.5 SEC) 12.9 H INR (0.90 - 1.19) 1.18 APTT (25 - 37 SEC) 27 Hematology CBC w Diff MAN DIFF ORDERED WBC (4.8 - 10.8 /CUMM) 20.8 H RBC (4.20 - 5.40 /CUMM) 4.85 Hgb (12.0 - 16.0 G/DL) 14.2 Hct (37 - 47 %) 42.2 MCV (81.0 - 99.0 FL) 86.8 MCH (27.0 - 31.0 PG) 29.2 MCHC (33.0 - 37.0 G/DL) 33.7 RDW (11.5 - 14.5 %) 14.5 Plt Count (130 - 400 /CUMM) 410 H MPV (7.4 - 10.4 FL) 7.8 Gran % (42.2 - 75.2 %) 93.4 H Lymphocytes % (20.5 - 51.1 %) 3.7 L Monocytes % (1.7 - 9.3 %) 2.6 Eosinophils % (0 - 5 %) 0.1 Basophils % (0.0 - 2.0 %) 0.2 Absolute Granulocytes (1.4 - 6.5 /CUMM) 19.4 H Segmented Neutrophils (42.2 - 75.2 %) 88 H Absolute Lymphocytes (1.2 - 3.4 /CUMM) 0.8 L Lymphocytes (20.5 - 51.1 %) 7 L Monocytes (1.7 - 9.3 %) 5 Absolute Monocytes (0.10 - 0.60 /CUMM) 0.5 Absolute Eosinophils (0.0 - 0.7 /CUMM) 0 Absolute Basophils (0.0 - 0.2 /CUMM) 0 Platelet Estimate (ADEQUATE) VERIFIED BY SMEAR Normocytic RBCs VERIFIED Normochromic RBCs VERIFIED PE: General Appearance Alert, Oriented X3, Cooperative, No Acute Distress Skin No Rashes, small ulcer in sacral region HEENT Atraumatic, PERRLA, EOMI Cardiovascular Normal S1, Normal S2, IRREGULARLY IRREGULAR pulse Lungs Crackles bilateral lung griffiths Abdomen Normal Bowel Sounds, Soft, No Tenderness Extremities No Clubbing, No Cyanosis, trace pedal edema, pedal pulse felt on R, heard by US doppler on L, cold extremities Results Results: Laboratory Tests 09/29/17 1100: Troponin I 0.02 09/29/17 0355: Anion Gap 12, Estimated GFR 47 L, BUN/Creatinine Ratio 40.9 H, Magnesium 2.0, Total Bilirubin 0.4, Direct Bilirubin 0.3, AST 62 H, ALT 78 H, Alkaline Phosphatase 196 H, Creatine Kinase 1155 H, Total Protein 5.0 L, Albumin 2.2 L, CBC w Diff MAN DIFF ORDERED, RBC 4.02 L, MCV 87.4, MCH 28.7, MCHC 32.8 L, RDW 15.1 H, MPV 7.9, Gran % 86.0 H, Lymphocytes % 7.4 L, Monocytes % 6.1, Eosinophils % 0.4, Basophils % 0.1, Absolute Granulocytes 15.8 H, Segmented Neutrophils 89 H, Absolute Lymphocytes 1.4, Lymphocytes 7 L, Monocytes 3, Absolute Monocytes 1.1 H, Eosinophils 1, Absolute Eosinophils 0.1, Absolute Basophils 0, Platelet Estimate ADEQUATE, Polychromasia 1+, Hypochromic- Microcytic 1+, Poikilocytosis 2+, Ovalocytes 1+, [place] Cells 1+, Fld Total RBCs Counted 100 09/29/17 0030: Troponin I 0.03 09/28/17 1745: Lactic Acid 1.9 09/28/17 1620: Creatine Kinase 1450 H, Troponin I 0.04, Ysv-O-Ophbxhjsosm Pept 9480 H 09/28/17 1344: Urinalysis LIGHT H, Urine Color YEL, Urine Clarity CLDY H, Urine pH 6.0, Ur Specific [place] 1.025, Urine Protein 100 H, Urine Ketones NEG, Urine Nitrite NEG, Urine Bilirubin NEG@ICTO, Urine Urobilinogen 1.0, Ur Leukocyte Esterase TRACE H, Ur Microscopic SEDIMENT EXAMINED, Urine RBC 5-10 H, Urine WBC 5-10 H , Ur Epithelial Cells MANY H, Urine Bacteria MANY H, Urine Mucus FEW, Urine Hemoglobin MOD H, Urine Glucose NEG 09/28/17 1305: Anion Gap 16, Estimated GFR 47 L, BUN/Creatinine Ratio 40.0 H, Glucose 174 H, Lactic Acid 6.6 H, Calcium 9.3, Total Bilirubin 1.3, AST 100 H, ALT 85 H, Alkaline Phosphatase 229 H, Total Protein 6.2 L, Albumin 2.9 L, Globulin 3.3, Albumin/Globulin Ratio 0.9 L, TSH 5.160 H, Free T4 2.16 H, PT 12.9 H, INR 1.18, APTT 27, CBC w Diff MAN DIFF ORDERED, RBC 4.85, MCV 86.8, MCH 29.2, MCHC 33.7, RDW 14.5, MPV 7.8, Gran % 93.4 H, Lymphocytes % 3.7 L, Monocytes % 2.6, Eosinophils % 0.1, Basophils % 0.2, Absolute Granulocytes 19.4 H, Segmented Neutrophils 88 H, Absolute Lymphocytes 0.8 L, Lymphocytes 7 L, Monocytes 5, Absolute Monocytes 0.5, Absolute Eosinophils 0, Absolute Basophils 0, Platelet Estimate VERIFIED BY SMEAR, Normocytic RBCs VERIFIED, Normochromic RBCs VERIFIED Microbiology 09/29 102 URINE ROUT: Legionella Antigen - COLB 09/29 1027 URINE ROUT: Streptococcus pneumoniae Antigen (M - COLB 09/28 1910 GI: Surveillance Culture - RECD 09/28 190 UPPER RESP: Surveillance Culture - RECD 09/28 182 URINE ROUT: Urine Culture - COLB 09/28 181 BLOOD: Blood Culture - RES 09/28 1800 BLOOD: Blood Culture - RES Imaging: CXR: IMPRESSION: New left basilar airspace opacity and suggestion of small pleural effusion. Abdomen/Pelvis CT: IMPRESSION: 1. Small bilateral pleural effusions with bibasilar infiltrate/atelectasis left worse than right. 2. Diverticulosis of the colon without acute change of the bowel. Assessment/Plan Assessment: Ronit Thayer is an 87 y/o female with a PMH of hypothyroidism and osteoarthritis , who was recently admitted at [facility] (09/21 & left AMA on 09/24) because of a fall, and in further workup was found to have afib. She came to the hospital because of her family's insistence after she spent the whole night laying on the floor. Patient states that yesterday around 4:30pm, she glided in the bathroom and wasn't able to get up the floor. She was found at 10:00am and was then brought to the hospital. On admission she was found to have afib with RVR, transaminitis, increased creatine kinase, increased WBC and lactic acidosis. She was started on IV amiodarone and heparin. Problem list and plan: - Afib with RVR: Per cardiology recommendations, continue Amiodarone drip and change the heparin for eliquis 5mg BID. Follow up with cardiology. - Slightly volume overloaded?: Patient looked dehydrated, but had JVD, trace BL edema and BL crackles on lung auscultation. ProBNP was 9480 and imaging showed pleural effusions. Stop NS. Appreciate cardiology recommendation. - Lactic acidosis: Resolved. - Elevated WBCs: Patient has been afebrile the whole time. She has been receiving Unasyn. Will follow up urine tests. - Transaminitis: Numbers are decreasing. Her reason for transaminitis could be fluid congestion (she does have crackles and JVD) or a transient ischemic hepatitis as patient does have borderline hypotension. Imaging didn't show anything abnormal on her liver or gallbladder. - Rhabdomyolysis: Patient was on the floor the whole night. Her CK level was 1450 at admission, but now is 1155. Patient is making good urine outpout and she received NS which seemed to help her clear out the CK. - Mild hypothyroidism: Patient did state being diagnosed with mild hypothyroidism at a young age, but she refuses any medications.
--- NOTE | 2017-09-28 17:27 | CT SCAN REPORT ---
EXAMINATION: CT ABDOMEN AND PELVIS WITHOUT CONTRAST CLINICAL INFORMATION: Leukocytosis. Transaminitis COMPARISON: None TECHNIQUE: Multidetector volumetric imaging was performed from the superior aspect of the liver through the pubic symphysis. Sagittal and coronal reformatted images were obtained on the technologist's workstation. DLP: 310.77 mGy-cm FINDINGS: LUNG BASES: Small bilateral pleural effusions. Bibasilar atelectasis/infiltrate. The volume of the effusion and the area of consolidation is greater on the left than the right. LIVER, GALLBLADDER, AND BILIARY TREE: The liver is normal in size, shape, and attenuation. No focal hepatic lesion or biliary ductal dilatation is present. Right lobe of liver measures 20 cm superior inferior. The gallbladder is unremarkable with no evidence of radiopaque gallstones, gallbladder wall thickening, or obvious pericholecystic inflammatory changes. PANCREAS: Unremarkable. SPLEEN: Unremarkable. ADRENAL GLANDS: Unremarkable. KIDNEYS AND URETERS: The kidneys are normal in size, shape, and attenuation. No hydronephrosis, hydroureter, or calculi seen. No perinephric stranding. BLADDER: Unremarkable. GASTROINTESTINAL TRACT: There is diverticulosis of the sigmoid and left colon with a few diverticula of the right colon. There is no diverticulitis. There is no acute change of the bowel. No bowel obstruction. No bowel wall thickening or edema. Moderate volume of stool in the colon. The small bowel loops are normal. The appendix is normal. The small bowel loops are unremarkable. ABDOMINAL WALL: No significant hernia is appreciated. LYMPH NODES: Normal. VASCULAR: There is atherosclerotic vascular calcifications of aorta and iliac vessels without aneurysm. PELVIC VISCERA: Uterus is anteverted. No adnexal abnormality. OSSEOUS STRUCTURES: Multilevel degenerative spondylosis of the spine with disc height narrowing and endplate spurring and facet joint arthrosis of the vertebrae. There is advanced degenerative change of the left hip. Femoral head is remodeled with flattening of the weightbearing portion of the femoral head. There is subchondral cystic changes and sclerosis of the weightbearing portion of femoral head and acetabulum with large bone spurs at both the acetabulum and femoral head. There is mild joint narrowing of the right hip. IMPRESSION: 1. Small bilateral pleural effusions with bibasilar infiltrate/atelectasis left worse than right. 2. Diverticulosis of the colon without acute change of the bowel.
[2017-09-28 19:00] VITALS: BP 92/70
--- NOTE | 2017-09-28 19:04 | Cons- Cardiology ---
General Information and HPI Consulting Request Date of Consult: 09/28/17 Requested By: Garrett Patten MD History of Present Illness: This patient is an 87 year old female with recently discovered atrial fibrillation. The patient refused treatment and was discharged to home after a psychiatric evaluation found her competent to make her own decisions. She returns today with complaints of rapid palpitations, shortness of breath and mild lightheadedness. She otherwise denies chest discomfort. PND is reported and when the patient feels poorly she likes to go to an open window. Finally, she sleep on multiple pillows suggestive of orthopnea. At her baseline, she walks slowly although she attributes this to left leg arthritis. It should be noted that the patient has not seen a physician for about twenty years prior to this event but about 10 days ago she presented to the emergency roon after a fall and was noted to be in atrial fibrillation with rapid rate accompanied by hypotension. She was given Amiodarone in the ER and converted to sinus rhythm and then refused further treatment. An echocardiogram was obtained along with TFT's. In the ER the patient is responsive but is tachycardic with a low to low normal blood pressure. She has an elevated WBC count. An initial serum lactate level was elevated although a repeat level is in the normal range. Allergies/Medications Allergies: Coded Allergies: No Known Allergies (09/20/17) Review of Systems Review of Systems: A review of systems is remarkable for arthritis. 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 Surgical History Surgical History: tonsillectomy Psychosocial History Services at Home: None ETOH Use: denies use Illicit Drug Use: denies illicit drug use Exam & Diagnostic Data Vital Signs and I&O Vital Signs Date Time Temp Pulse Resp B/P B/P Pulse O2 O2 Flow FiO2 Mean Ox Delivery Rate 09/28 1818 128 18 90/62 95 Nasal 2.0L Cannula 09/28 1718 98.7 118 20 86/60 95 Nasal 2.0L Cannula 09/28 1718 118 89/56 09/28 1615 118 20 89/56 91 Room Air 09/28 1507 126 91/56 09/28 1451 11 103/73 09/28 1438 97.4 138 20 103/73 93 Room Air 09/28 1435 138 103/73 09/28 1413 101/70 09/28 1345 154 96/78 09/28 1334 146 20 93/72 93 Room Air 09/28 1332 93 Room Air 09/28 1323 112/57 09/28 1300 97.7 154 20 78/42 93 Room Air Intake & Output 09/28 0809/28 0000 09/27 0809/27 0000 Intake Total 1000 Output Total Balance 1000 Intake, IV 1000 Patient 145 lb Weight Physical Exam: General: WD/WN female in NAD; alert and oriented x 3 HEENT: NC/AT, PERRL, EOMI Neck: no JVD, no carotid bruit Heart: irregularly irregular and tachycardic with 2/6 systolic murmur Lungs: crackles at bases bilaterally ABdomen: soft, NT, +ve bowel sounds Extremities: 1+ left LE edema Assessment/Plan Assessment/Plan * This patient may have a low blood pressure that is related to sepsis considering her initial high serum lactate level and increased WBC count. Atrial fibrillation may be a contributor rather than the primary cause of this hemodynamic issue. As such, I would monitor in the CCU and begin broad spectrum antibiotics. Dominguez culture. The patient has received IV fluid and now has bilateral crackles therefore her NS will need to be minimized. If her BP remains in the 90mmHg systolic range then she can hold IV fluids. * Continue Amiodarone drip. Additional medications to control her heart rate will not be tolerated at this point in time. If she becomes clearly hemodynamically stable then chemical cardioversion or DC cardioversion would be indicated but I am not inclined toward purposeful cardioversion while her pressure is 90mmHg and she is conversing in a lucid fashion due to the risk of stroke. This patient has not been on anticoagulation. * At this point begin anticoagulation with Eliquis 5mg BID. * Any additional drop in BP may require pressors. * Obtain an endocrinology consult. Consult Acknowledgment - Thank you for your consult request.
[2017-09-29] VITALS: BP 98/47
[2017-09-29 05:09] LABS: ABSOLUTE BASOPHIL COUNT 0 /CUMM (0.0-0.2); ABSOLUTE EOSINOPHIL COUNT 0.1 /CUMM (0.0-0.7); ABSOLUTE GRANULOCYTE CT 15.8 /CUMM (1.4-6.5); ABSOLUTE LYMPH COUNT 1.4 /CUMM (1.2-3.4); ABSOLUTE MONOCYTE COUNT 1.1 /CUMM (0.10-0.60); BASOPHIL % 0.1 % (0.0-2.0); EOSINOPHIL % 0.4 % (0-5); MEAN CORPUSCULAR HGB 28.7 PG (27.0-31.0); MEAN CORPUSCULAR HGB CONC 32.8 G/DL (33.0-37.0); MEAN CORPUSCULAR VOLUME 87.4 FL (81.0-99.0); MEAN PLATELET VOLUME 7.9 FL (7.4-10.4); PLATELET COUNT 368 /CUMM (130-400); RBC DISTRIBUTION WIDTH 15.1 % (11.5-14.5); RED BLOOD CELL CT 4.02 /CUMM (4.20-5.40); WHITE BLOOD CELL COUNT 18.4 /CUMM (4.8-10.8)
[2017-09-29 05:18] LABS: HEMATOCRIT 35.1 % (37-47)
--- NOTE | 2017-09-29 07:37 | Cons- CRCU ---
General Information and HPI Consulting Request Date of Consult: 09/29/17 Requested By: Primary Team History of Present Illness: 87-year-old the woman with no known past medical history, no previous medical follow up, recently admitted to [facility] on 09/20/17 for fall. At that time she was found to be in atrial fibrillation with rapid ventricular rate and treated with beta-maia and amiodarone. Apparently around [address] to the bathroom she fell and was not able to get up on her. Her family found her on the floor around 10 AM this morning and convinced her to come to the hospital. She states that she was alert and awake and did not experience any loss of consciousness and was aware of all the events that were happening overnight. Per EMR she left AMA on September 24 and was not amenable to rate controlling or blood thinning medications. States that she lives at home and has been having left hip pain and as she did not want to walk to the bathroom she has been decreasing her p.o. intake so she did not have to walk to the bathroom. Allergies/Medications Allergies: Coded Allergies: No Known Allergies (09/20/17) Review of Systems Review of Systems Constitutional: Reports: see HPI. Past History Travel History Traveled to [place] past 21 day No Medical History Neurological: dizziness EENT: NONE Cardiovascular: AFIB Respiratory: NONE Gastrointestinal: NONE Hepatic: NONE Renal: NONE Musculoskeletal: arthritis lle- from hip down (arthritis) Psychiatric: NONE Endocrine: hypothyroidism Blood Disorders: NONE Cancer(s): NONE TITLE AGENT/Reproductive: NONE Surgical History Surgical History: tonsillectomy Psychosocial History Where Do You Live? Home Services at Home: None Smoking Status: Never Smoked ETOH Use: denies use Illicit Drug Use: denies illicit drug use Exam & Diagnostic Data Last 24 Hrs of Vital Signs/I&O Vital Signs Date Time Temp Pulse Resp B/P B/P Pulse O2 O2 Flow FiO2 Mean Ox Delivery Rate 09/29 0400 93 Nasal 2.0L Cannula 09/29 0000 96 Nasal 2.0L Cannula 09/29 0000 98.7 90 22 98/47 96 Nasal 2.0L Cannula 09/28 2341 107 19 98/62 09/28 1900 95 Nasal 2.0L Cannula 09/28 1900 97.2 114 14 92/70 95 Nasal 2.0L Cannula 09/28 1818 128 18 90/62 95 Nasal 2.0L Cannula 09/28 1719 98.7 118 20 86/60 95 Nasal 2.0L Cannula 09/28 1718 118 89/56 09/28 1615 118 20 89/56 91 Room Air 09/28 1507 126 91/56 09/28 1451 11 103/73 09/28 1438 97.4 138 20 103/73 93 Room Air 09/28 1435 138 103/73 09/28 1413 101/70 09/28 1345 154 96/78 09/28 1334 146 20 93/72 93 Room Air 09/28 1332 93 Room Air 09/28 1323 112/57 09/28 1300 97.7 154 20 78/42 93 Room Air Intake & Output 09/29 0800 09/29 0000 09/28 1600 Intake Total 330 333.2 1000 Output Total Balance 330 333.2 1000 Intake, IV 330 333.2 1000 Patient 168 lb 145 lb Weight Weight Bed scale Measurement Method Physical Exam General Appearance: no apparent distress, alert, awake, very social and talkative. Respiratory: decreased basilar breath sounds Cardiovascular: irregularly irregular Gastrointestinal: normal bowel sounds, soft, non-tender Extremities: 1+ radial pulses. Trace lower extremity edema Last 48 Hrs of Labs/Bridger: Laboratory Tests 09/29/17 0355: Anion Gap 12, Estimated GFR 47 L, BUN/Creatinine Ratio 40.9 H, CBC w Diff MAN DIFF ORDERED, RBC 4.02 L, MCV 87.4, MCH 28.7, MCHC 32.8 L, RDW 15.1 H, MPV 7.9, Gran % 86.0 H, Lymphocytes % 7.4 L, Monocytes % 6.1, Eosinophils % 0.4, Basophils % 0.1, Absolute Granulocytes 15.8 H, Segmented Neutrophils 89 H, Absolute Lymphocytes 1.4, Lymphocytes 7 L, Monocytes 3, Absolute Monocytes 1.1 H, Eosinophils 1, Absolute Eosinophils 0.1, Absolute Basophils 0, Platelet Estimate ADEQUATE, Polychromasia 1+, Hypochromic-Microcytic 1+, Poikilocytosis 2 +, Ovalocytes 1+, [place] Cells 1+, Fld Total RBCs Counted 100 09/29/17 0030: Troponin I 0.03 09/28/17 1745: Lactic Acid 1.9 09/28/17 1620: Creatine Kinase 1450 H, Troponin I 0.04, Zew-C-Lmiomsjnweh Pept 9480 H 09/28/17 1344: Urinalysis LIGHT H, Urine Color YEL, Urine Clarity CLDY H, Urine pH 6.0, Ur Specific [place] 1.025, Urine Protein 100 H, Urine Ketones NEG, Urine Nitrite NEG, Urine Bilirubin NEG@ICTO, Urine Urobilinogen 1.0, Ur Leukocyte Esterase TRACE H, Ur Microscopic SEDIMENT EXAMINED, Urine RBC 5-10 H, Urine WBC 5-10 H , Ur Epithelial Cells MANY H, Urine Bacteria MANY H, Urine Mucus FEW, Urine Hemoglobin MOD H, Urine Glucose NEG 09/28/17 1305: Anion Gap 16, Estimated GFR 47 L, BUN/Creatinine Ratio 40.0 H, Glucose 174 H, Lactic Acid 6.6 H, Calcium 9.3, Total Bilirubin 1.3, AST 100 H, ALT 85 H, Alkaline Phosphatase 229 H, Total Protein 6.2 L, Albumin 2.9 L, Globulin 3.3, Albumin/Globulin Ratio 0.9 L, TSH 5.160 H, Free T4 2.16 H, PT 12.9 H, INR 1.18, APTT 27, CBC w Diff MAN DIFF ORDERED, RBC 4.85, MCV 86.8, MCH 29.2, MCHC 33.7, RDW 14.5, MPV 7.8, Gran % 93.4 H, Lymphocytes % 3.7 L, Monocytes % 2.6, Eosinophils % 0.1, Basophils % 0.2, Absolute Granulocytes 19.4 H, Segmented Neutrophils 88 H, Absolute Lymphocytes 0.8 L, Lymphocytes 7 L, Monocytes 5, Absolute Monocytes 0.5, Absolute Eosinophils 0, Absolute Basophils 0, Platelet Estimate VERIFIED BY SMEAR, Normocytic RBCs VERIFIED, Normochromic RBCs VERIFIED Assessment/Plan CRCU Impression/Plan: A: 87-yo F with no significant pmhx and history of reported noncompliance with doctor visits for several years was recently admitted to [facility] (09/21 -09/24) after a mechanical fall and was found to be in atrial fibrillation at that time and left AMA with incomplete treatment of beta maia and amiodarone. She returns for after being found on the floor and was convinced by family members to be evaluated for shortness of breath and decreased by mouth intake. She was found to have afib with rvr, possible pna, possible UTI, and chf. P: #A. fib with RVR The patient was found to be in A. fib with RVR. She was started on heparin drip and amiodarone drip. Heparin drip was discontinued and she was started on by mouth Eliquis. -Continue Eliquis -Continue amiodarone drip -Follow-up echocardiogram -f/u cardio consult #CHF most likely secondary to A. fib ProBNP elevated 9480 CT abd/pelvis: Small bilateral pleural effusions with bibasilar infiltrate/ atelectasis -Follow-up repeat chest x-ray -Continue holding IV fluids #Abnormal LFTs most likely secondary to hepatic congestion from CHF Initial T bili 1.3 ,AST 100, ALT 85, ALP 229 Heptic function improving -Will consider right upper quadrant ultrasound #Pneumonia WBC was initially elevated 20.8 She continues to be afebrile Lactic acidosis resolved after 2 L of fluids Chest x-ray : New left basilar airspace opacity and suggestion of small pleural effusion. -Continues to have borderline hypotension but patient refuses any central line pressors -Continue Unasyn -f/u cultures #Recent fall with rhabdomyolysis The patient was found on floor by family Creatinine kinase elevated at 1450 Has received 2L of fluids -Holding fluids as patient has CHF. CK has improved - Follow-up lower extremity ultrasound given history of DVT #mild hypothyrodism Free T4 mildly low and TSH mildly elevated -cont to monitor DVT ppx; Patient is on eliquis Heart Healthy Diet Problem List: 1. Atrial fibrillation with RVR 2. Transaminitis 3. Pneumonia 4. Rhabdomyolysis Consult Acknowledgment - Thank you for your consult request.
[2017-09-29 08:00] VITALS: BP 84/0
--- NOTE | 2017-09-29 08:12 | RADIOLOGY REPORT ---
EXAMINATION: XR PORTABLE CHEST CLINICAL INFORMATION: Right, elevated JVD, atrial fibrillation, follow-up for atelectasis versus infection COMPARISON: 09/28/2017 TECHNIQUE: Portable frontal view of the chest was obtained. FINDINGS: Lung volumes are symmetric. There is redemonstrated left basilar opacity and small pleural effusion. No new consolidation is seen bilaterally. No evidence of pneumothorax or overt pulmonary edema. The cardiomediastinal silhouette is stable. No acute osseous findings are seen. IMPRESSION: Persistent left basilar opacity and small pleural effusion, without significant interval change.
--- NOTE | 2017-09-29 08:40 | PN- CRCU ---
Subjective HPI/Critical Care Issues: Little better In good spirits Mildly hypotensive but mentating well and making good urine output Continues to be on amiodarone drip Heparin was discontinued No other concerns per patient Significant data Reviewed creatinine stable White count 18 down from 20 platelets 368 INR 1.1 Chest x-ray done showed persistent left basilar opacity with small pleural effusion without significant interval change no new consolidation Patient remains afebrile Objective Current Medications: Current Medications Sig/Telly Start time Last Medication Dose Route Stop Time Status Admin Amiodarone HCl/ 360 MG Q12H 09/28 1645 AC 09/28 Dextrose IV 2341 N/A 1 UNIT Amiodarone HCl/ 150 MG ONCE ONE 09/28 1630 CAN Dextrose IV 09/28 1639 N/A 1 UNIT Amiodarone HCl/ 150 MG ONCE ONE 09/28 1330 DC 09/28 Dextrose IV 09/28 1339 1435 N/A 1 UNIT Amiodarone HCl/ 360 MG Q12H 09/28 1330 DC 09/28 Dextrose IV 1451 N/A 1 UNIT Ampicillin Sodium/ 0 .STK-MED ONE 09/28 1809 DC Sulbactam Sodium .ROUTE Ampicillin Sodium/ 1,500 MG Q6 09/28 1800 AC 09/29 Sulbactam Sodium IV 0509 Sodium Chloride 100 ML Apixaban 5 MG BID 09/28 1545 AC 09/28 PO 1718 Heparin Sodium 0 .STK-MED ONE 09/28 1408 DC (Porcine) .ROUTE Heparin Sodium 4,000 UNIT ONCE ONE 09/28 1330 DC 09/28 (Porcine) IV 09/28 1331 1414 Heparin Sodium 25,000 UNIT Q24H 09/28 1330 CAN (Porcine) IV Sodium Chloride 500 ML Heparin Sodium/ 25,000 UNIT Q24H 09/28 1330 DC 09/28 Dextrose IV 09/29 1329 1420 Dextrose/Water 500 ML Sodium Chloride 1,000 ML Q13H 09/28 1845 DC IV Sodium Chloride 1,000 ML BOLUS ONE 09/28 1500 DC 09/28 IV 09/28 1559 1510 Sodium Chloride 1,000 ML BOLUS ONE 09/28 1315 DC 09/28 IV 09/28 1414 1310 Vital Signs & I&O Last 24 Hrs of Vitals and I&O: Vital Signs Date Time Temp Pulse Resp B/P B/P Pulse O2 O2 Flow FiO2 Mean Ox Delivery Rate 09/29 0400 93 Nasal 2.0L Cannula 09/29 0000 96 Nasal 2.0L Cannula 09/29 0000 98.7 90 22 98/47 96 Nasal 2.0L Cannula 09/28 2341 107 19 98/62 09/28 1900 95 Nasal 2.0L Cannula 09/28 1900 97.2 114 14 92/70 95 Nasal 2.0L Cannula 09/28 1818 128 18 90/62 95 Nasal 2.0L Cannula 09/28 1719 98.7 118 20 86/60 95 Nasal 2.0L Cannula 09/28 1718 118 89/56 09/28 1615 118 20 89/56 91 Room Air 09/28 1507 126 91/56 09/28 1451 11 103/73 09/28 1438 97.4 138 20 103/73 93 Room Air 09/28 1435 138 103/73 09/28 1413 101/70 09/28 1345 154 96/78 09/28 1334 146 20 93/72 93 Room Air 09/28 1332 93 Room Air 09/28 1323 112/57 09/28 1300 97.7 154 20 78/42 93 Room Air Intake & Output 09/29 1600 09/29 0800 09/29 0000 Intake Total 330 333.2 Output Total Balance 330 333.2 Intake, IV 330 333.2 Patient 168 lb Weight Weight Bed scale Measurement Method Impression/Plan Impression/Plan Impression/Plan: General Appearance Alert, Oriented X3, Cooperative, No Acute Distress Skin No Rashes, No Breakdown HEENT Atraumatic, PERRLA, EOMI Cardiovascular Normal S1, Normal S2, IRREGULARLY IRREGULAR Lungs Crackles bilateral lung griffiths Abdomen Normal Bowel Sounds, Soft, No Tenderness Extremities No Clubbing, No Cyanosis, Normal Pulses, trace pedal edema MS. Thayer is an 87-year-old lady with no known past medical history and reported noncompliance with doctor visits for several years was recently admitted to [facility] (09/21-09/24) after a mechanical fall and was found to be in Atrial fibrillation at that time, is brought in by the family members for evaluation of dyspnea and decreased PO intake ISSUES * Pt with Chronic afib with increased ventricular response mild chf with preserved EF from before with mild HFpEF * Mild hypotension with increased jvd, crackles with left more than rt effusion consistant with low cardiac output, from rapid afib, and pt is being attempted with chemical cardioversion by amio and on eloquis * Left lower lobe atx with effsusion due to pulm edema no clinical evidence of aspiration pna but need to rule out, unlikely cap * No active evidence of pyogenic pna or any other bacterial infection * Transaminitis due to liver congestion and ischemia from low cardiac output, needs further blood work * Recent fall with rhabdo, with mild pain in the left thigh * LActic acidosis due to poor cardiac out put which is improving REC Cont amio and eloquis Needs ICU care for amio only Wishes no other intervention Cont abx for today and change to po augmentin Check urinary antigen Rpt lft and cpk Encourage po Will follow Start po amio if ok with cardio Pt absolutely wishes no invasive work up, wishes no bass, tlc or electrical cardioversion, or any life support ([facility] with no agg measures, Not depressed and completely competent to make her decisions, as she says she is 87 yrs old without any sig medical interventions and wishes to keep it that wasy)
[2017-09-29 16:00] VITALS: BP 98/62
--- NOTE | 2017-09-29 17:16 | ULTRASOUND REPORT ---
EXAMINATION: US TRIPLEX OF LOWER EXTREMITIES, BILATERAL CLINICAL INFORMATION: Atrial fibrillation, not on anticoagulation, rule out DVT COMPARISON: None TECHNIQUE: Color-flow triplex imaging with spectral analysis and compression Doppler were performed on the lower extremities. FINDINGS: Respiratory variation, normal compression and augmented flow are noted throughout the lower extremities. The visualized common femoral vein, superficial femoral vein, profunda femoral vein, popliteal vein and midcalf peroneal and posterior tibial venous segments show no evidence of deep venous thrombosis. There are 2 fluid collections identified in the right popliteal fossa measuring 2.3 x 0.3 x 1.1 cm medially and 3.9 x 0.3 x 2.5 cm laterally. IMPRESSION: 1. No evidence of deep venous thrombosis involving the bilateral lower extremities. 2. Right popliteal fossa cyst as described above.
--- NOTE | 2017-09-29 19:16 | PN- Cardiology ---
Subjective Subjective: * Patient feels well. No chest discomfort or shortness or breath. * borderline BP * WBC count 18.4 Objective Vital Signs and I&Os Vital Signs Date Time Temp Pulse Resp B/P B/P Pulse O2 O2 Flow FiO2 Mean Ox Delivery Rate 09/29 1623 110 107/70 09/29 1600 96 Nasal 2.0L Cannula 09/29 1600 98.6 86 16 98/62 94 Nasal 2.0L Cannula 09/29 1200 96 Nasal 2.0L Cannula 09/29 0800 98 Nasal 2.0L Cannula 09/29 0800 97.8 116 20 84/0 98 Nasal 2.0L Cannula 09/29 0400 93 Nasal 2.0L Cannula 09/29 0000 96 Nasal 2.0L Cannula 09/29 0000 98.7 90 22 98/47 96 Nasal 2.0L Cannula 09/28 2341 107 19 98/62 Intake & Output 09/29 1600 09/29 0800 09/29 0000 09/28 1600 09/28 0800 09/28 0000 Intake Total 934 330 333.2 1000 Output Total Balance 934 330 333.2 1000 Intake, IV 134 330 333.2 1000 Intake, Oral 800 Number 1 Bowel Movements Patient 168 lb 145 lb Weight Weight Bed scale Measurement Method Physical Exam: General: WD/WN female in NAD; alert and oriented x 3 HEENT: NC/AT, PERRL, EOMI Neck: no JVD, no carotid bruit Heart: irregularly irregular and tachycardic with 2/6 systolic murmur Lungs: clear bilaterally ABdomen: soft, NT, +ve bowel sounds Extremities: 1+ left LE edema Assessment/Plan Assessment/Plan * This patient may have a low blood pressure that is related to sepsis considering her initial high serum lactate level and increased WBC count. Atrial fibrillation may be a contributor rather than the primary cause of this hemodynamic issue. As such, I would monitor in the CCU and continue antibiotics. Cultures are pending. * Change to Amiodarone 400mg PO BID. Since she continues to be tachycardic we will give Lopressor 5mg IV and monitor for hypotension. Repeat an echocardiogram. If she becomes clearly hemodynamically stable then chemical cardioversion with ibutilide would be indicated. Continue anticoagulation with Eliquis 5mg BID. * Obtain an endocrinology consult. Continue telemetry? Yes
[2017-09-30 00:21] VITALS: BP 98/00
[2017-09-30 04:52] LABS: ABSOLUTE BASOPHIL COUNT 0 /CUMM (0.0-0.2); ABSOLUTE EOSINOPHIL COUNT 0.1 /CUMM (0.0-0.7); ABSOLUTE GRANULOCYTE CT 13.9 /CUMM (1.4-6.5); ABSOLUTE LYMPH COUNT 0.8 /CUMM (1.2-3.4); ABSOLUTE MONOCYTE COUNT 0.8 /CUMM (0.10-0.60); BASOPHIL % 0 % (0.0-2.0); EOSINOPHIL % 0.7 % (0-5); GRANULOCYTE % 89.1 % (42.2-75.2); HEMATOCRIT 34.7 % (37-47); MEAN CORPUSCULAR HGB 28.8 PG (27.0-31.0); MEAN CORPUSCULAR HGB CONC 32.9 G/DL (33.0-37.0); MEAN CORPUSCULAR VOLUME 87.3 FL (81.0-99.0); MEAN PLATELET VOLUME 7.8 FL (7.4-10.4); PLATELET COUNT 355 /CUMM (130-400); RBC DISTRIBUTION WIDTH 14.6 % (11.5-14.5); RED BLOOD CELL CT 3.98 /CUMM (4.20-5.40); WHITE BLOOD CELL COUNT 15.6 /CUMM (4.8-10.8)
--- NOTE | 2017-09-30 07:21 | PN- Resident CRCU ---
Subjective HPI/CRCU Issues: No acute events overnight. States that she is doing well. No chest pain or palpitations. 24 Hour Events: Tmax 99.4 Heart rate 03382, A. fib RR 1830 BP [id number] Objective Vital Signs & I&O Last 8 Hrs of Vitals and I&O: Laboratory Tests 09/30/17 0419: Anion Gap 9, Estimated GFR 60, Glucose 91, Calcium 8.0 L, Phosphorus 2.7, Magnesium 2.0, Total Bilirubin 0.5, Direct Bilirubin 0.3, AST 148 H, ALT 163 H , Alkaline Phosphatase 306 H, Creatine Kinase 821 H, Total Protein 4.9 L, Albumin 2.1 L, TSH Pending, Free T4 Pending, CBC w Diff MAN DIFF ORDERED, RBC 3.98 L, MCV 87.3, MCH 28.8, MCHC 32.9 L, RDW 14.6 H, MPV 7.8, Gran % 89.1 H, Lymphocytes % 5.2 L, Monocytes % 5.0, Eosinophils % 0.7, Basophils % 0, Absolute Granulocytes 13.9 H, Segmented Neutrophils 85 H, Band Neutrophils 2, Absolute Lymphocytes 0.8 L, Lymphocytes 7 L, Monocytes 6, Absolute Monocytes 0.8 H, Absolute Eosinophils 0.1, Absolute Basophils 0, Platelet Estimate ADEQUATE, Polychromasia 1+, Hypochromic-Microcytic 1+, Poikilocytosis 1+, Ovalocytes 1+, Fld Total RBCs Counted 100, Hepatitis A IgM Ab Pending, Hep Bs Antigen NONREACTIVE, Hep B Core IgM Ab Conf Pending, Hepatitis C Antibody Pending 09/29/17 1100: Troponin I 0.02 Vital Signs Date Time Temp Pulse Resp B/P B/P Pulse O2 O2 Flow FiO2 Mean Ox Delivery Rate 09/30 901 106 100/70 09/30 0800 97.7 106 16 100/70 93 Room Air 09/30 0400 95 Room Air Exam General Appearance: no apparent distress, alert, awake Cardiovascular: irregularly irregular. Tachycardia Gastrointestinal: normal bowel sounds, soft, non-tender Extremities: left 1+ radial pulse, right 2+ radial pulse, trace lower extremity edema Current Medications: Current Medications Sig/Telly Start time Last Medication Dose Route Stop Time Status Admin Amiodarone HCl 400 MG BID 09/29 1929 AC 09/30 PO 09 Amiodarone HCl/ 360 MG Q12H 09/28 1645 DC 09/29 Dextrose IV 1623 N/A 1 UNIT Amoxicillin/ 875 MG Q12 09/29 2100 AC 09/30 Clavulanate Potassium PO 0901 Ampicillin Sodium/ 1,500 MG Q6 09/28 1800 DC 09/29 Sulbactam Sodium IV 0509 Sodium Chloride 100 ML Apixaban 5 MG BID 09/28 1545 AC 09/30 PO 0901 Magnesium Oxide 400 MG ONE ONE 09/30 0730 DC 09/30 PO 09/30 0731 0901 Metoprolol Tartrate 5 MG ONCE ONE 09/29 1930 DC 09/29 IV 09/29 193 1930 Metoprolol Tartrate 5 MG BID 09/29 1915 DC IV Impression/Plan Impression/Problem List Impression: A: 87-yo F with no significant pmhx and history of reported noncompliance with doctor visits for several years was recently admitted to [facility] (09/21 -09/24) after a mechanical fall and was found to be in atrial fibrillation at that time and left AMA with incomplete treatment of beta maia and amiodarone. She returns for after being found on the floor and was convinced by family members to be evaluated for shortness of breath and decreased by mouth intake. She was found to have afib with rvr, possible pna, possible UTI, and chf. P: #A. fib with RVR The patient was found to be in A. fib with RVR. She was started on heparin drip and amiodarone drip. Heparin drip was discontinued and she was started on by mouth Eliquis. -Continue Eliquis -Switched from oral amiodarone to digoxin. Also start lopressor PO. -Follow-up echocardiogram -f/u cardio consult #CHF most likely secondary to A. fib ProBNP elevated 9480 CT abd/pelvis: Small bilateral pleural effusions with bibasilar infiltrate/ atelectasis -Continue holding IV fluids #Abnormal LFTs most likely secondary to hepatic congestion from CHF Initial T bili 1.3 ,AST 100, ALT 85, ALP 229 Heptic function worsening Hepatitis panel negative -Will consider right upper quadrant ultrasound if LFTs worsening #Left lower lobe effusion due to pulmonary edema ?Pneumonia WBC was initially elevated 20.8 She continues to be afebrile Lactic acidosis resolved after 2 L of fluids Chest x-ray : Persistent left basilar opacity and small pleural effusion -Continues to have borderline hypotension but patient refuses any central line pressors -Switched from Unasyn to Augmentin. will dc abx after 5 days total (currently has taken 1.5 days thus far) -f/u cultures #Recent fall with rhabdomyolysis The patient was found on floor by family Creatinine kinase elevated at 1450 Has received 2L of fluids Doppler ultrasound negative for DVT -Holding fluids as patient has CHF. CK has improved -Continue to monitor #Abnormal thyroid panel, most likely sick euthyroid syndrome Free T4 mildly low and TSH mildly elevated but repeat labs normal -cont to monitor #stage 2 cocyx ulcer -present on admission DVT ppx; Patient is on eliquis Heart Healthy Diet Problem List: 1. Rhabdomyolysis 2. Atrial fibrillation with RVR 3. Pulmonary edema 4. Pulmonary edema 5. Rhabdomyolysis 6. Sick-euthyroid syndrome Pain Ratin Tomorrow's Labs & Rationales: icu cbc lft cpk free t4 tsh Plan DVT/Prophylaxis: eliquis
[2017-09-30 08:00] VITALS: BP 100/70
--- NOTE | 2017-09-30 08:28 | PN- CRCU ---
Subjective HPI/Critical Care Issues: Is in good spirits yesterday this morning was sleeping Blood pressure is improved On by mouth amiodarone No other significant concerns Laboratory Tests 09/30 09/29 0419 1100 Chemistry Sodium (137 - 145 mmol/L) 136 L Potassium (3.5 - 5.1 mmol/L) 3.8 Chloride (98 - 107 mmol/L) 103 Carbon Dioxide (22 - 30 mmol/L) 25 Anion Gap (5 - 16) 9 BUN (7 - 17 mg/dL) 39 H Creatinine (0.5 - 1.0 mg/dL) 0.9 Estimated GFR (>60 ml/min) 60 Glucose (65 - 99 mg/dL) 91 Calcium (8.4 - 10.2 mg/dL) 8.0 L Phosphorus (2.5 - 4.5 mg/dL) 2.7 Magnesium (1.6 - 2.3 mg/dL) 2.0 Total Bilirubin (0.2 - 1.3 mg/dL) 0.5 Direct Bilirubin (< 0.4 mg/dL) 0.3 AST (14 - 36 U/L) 148 H ALT (9 - 52 U/L) 163 H Alkaline Phosphatase (<127 U/L) 306 H Creatine Kinase (30 - 135 U/L) 821 H Troponin I (< 0.11 ng/ml) 0.02 Total Protein (6.3 - 8.2 g/dL) 4.9 L Albumin (3.5 - 5.0 g/dL) 2.1 L Hematology CBC w Diff MAN DIFF ORDERED WBC (4.8 - 10.8 /CUMM) 15.6 H RBC (4.20 - 5.40 /CUMM) 3.98 L Hgb (12.0 - 16.0 G/DL) 11.4 L Hct (37 - 47 %) 34.7 L MCV (81.0 - 99.0 FL) 87.3 MCH (27.0 - 31.0 PG) 28.8 MCHC (33.0 - 37.0 G/DL) 32.9 L RDW (11.5 - 14.5 %) 14.6 H Plt Count (130 - 400 /CUMM) 355 MPV (7.4 - 10.4 FL) 7.8 Gran % (42.2 - 75.2 %) 89.1 H Lymphocytes % (20.5 - 51.1 %) 5.2 L Monocytes % (1.7 - 9.3 %) 5.0 Eosinophils % (0 - 5 %) 0.7 Basophils % (0.0 - 2.0 %) 0 Absolute Granulocytes (1.4 - 6.5 /CUMM) 13.9 H Segmented Neutrophils (42.2 - 75.2 %) 85 H Band Neutrophils (0.0 - 5.0 %) 2 Absolute Lymphocytes (1.2 - 3.4 /CUMM) 0.8 L Lymphocytes (20.5 - 51.1 %) 7 L Monocytes (1.7 - 9.3 %) 6 Absolute Monocytes (0.10 - 0.60 /CUMM) 0.8 H Absolute Eosinophils (0.0 - 0.7 /CUMM) 0.1 Absolute Basophils (0.0 - 0.2 /CUMM) 0 Platelet Estimate (ADEQUATE) ADEQUATE Polychromasia 1+ Hypochromic-Microcytic 1+ Poikilocytosis 1+ Ovalocytes 1+ Other Body Source Fld Total RBCs Counted (%) 100 09/29 09/29 09/28 09/28 0355 0030 1745 1620 Chemistry Sodium (137 - 145 mmol/L) 140 Potassium (3.5 - 5.1 mmol/L) 3.7 Chloride (98 - 107 mmol/L) 103 Carbon Dioxide (22 - 30 mmol/L) 24 Anion Gap (5 - 16) 12 BUN (7 - 17 mg/dL) 45 H Creatinine (0.5 - 1.0 mg/dL) 1.1 H Estimated GFR (>60 ml/min) 47 L BUN/Creatinine Ratio (7 - 25 %) 40.9 H Lactic Acid (0.7 - 2.1 mmol/L) 1.9 Magnesium (1.6 - 2.3 mg/dL) 2.0 Total Bilirubin (0.2 - 1.3 mg/dL) 0.4 Direct Bilirubin (< 0.4 mg/dL) 0.3 AST (14 - 36 U/L) 62 H ALT (9 - 52 U/L) 78 H Alkaline Phosphatase (<127 U/L) 196 H Creatine Kinase (30 - 135 U/L) 1155 H 1450 H Troponin I (< 0.11 ng/ml) 0.03 0.04 Kci-T-[id number] Pept (<125 pg/mL) 9480 H Total Protein (6.3 - 8.2 g/dL) 5.0 L Albumin (3.5 - 5.0 g/dL) 2.2 L Hematology CBC w Diff MAN DIFF ORDERED WBC (4.8 - 10.8 /CUMM) 18.4 H RBC (4.20 - 5.40 /CUMM) 4.02 L Hgb (12.0 - 16.0 G/DL) 11.5 L Hct (37 - 47 %) 35.1 L MCV (81.0 - 99.0 FL) 87.4 MCH (27.0 - 31.0 PG) 28.7 MCHC (33.0 - 37.0 G/DL) 32.8 L RDW (11.5 - 14.5 %) 15.1 H Plt Count (130 - 400 /CUMM) 368 MPV (7.4 - 10.4 FL) 7.9 Gran % (42.2 - 75.2 %) 86.0 H Lymphocytes % (20.5 - 51.1 %) 7.4 L Monocytes % (1.7 - 9.3 %) 6.1 Eosinophils % (0 - 5 %) 0.4 Basophils % (0.0 - 2.0 %) 0.1 Absolute Granulocytes (1.4 - 6.5 /CUMM) 15.8 H Segmented Neutrophils (42.2 - 75.2 %) 89 H Absolute Lymphocytes (1.2 - 3.4 /CUMM) 1.4 Lymphocytes (20.5 - 51.1 %) 7 L Monocytes (1.7 - 9.3 %) 3 Absolute Monocytes (0.10 - 0.60 /CUMM) 1.1 H Eosinophils (0 - 5.0 %) 1 Absolute Eosinophils (0.0 - 0.7 /CUMM) 0.1 Absolute Basophils (0.0 - 0.2 /CUMM) 0 Platelet Estimate (ADEQUATE) ADEQUATE Polychromasia 1+ Hypochromic-Microcytic 1+ Poikilocytosis 2+ Ovalocytes 1+ [place] Cells 1+ Other Body Source Fld Total RBCs Counted (%) 100 09/28 1344 Urines Urinalysis LIGHT H Urine Color (YEL,AMB,STR) YEL Urine Clarity (CLEAR) CLDY H Urine pH (5.0 - 8.0) 6.0 Ur Specific Valentine (1.001 - 1.035) 1.025 Urine Protein (NEG,<30 MG/DL) 100 H Urine Ketones (NEG) NEG Urine Nitrite (NEG) NEG Urine Bilirubin (NEG) NEG@ICTO Urine Urobilinogen (0.1 - 1.0 EU/dl) 1.0 Ur Leukocyte Esterase (NEG) TRACE H Ur Microscopic SEDIMENT EXAMINED Urine RBC (0 - 5 /HPF) 5-10 H Urine WBC (0 - 2 /HPF) 5-10 H Ur Epithelial Cells (NONE,FEW) MANY H Urine Bacteria (NEG/NONE) MANY H Urine Mucus (FEW,NONE) FEW Urine Hemoglobin (NEG) MOD H Urine Glucose (N MG/DL) NEG 09/28 1305 Chemistry Sodium (137 - 145 mmol/L) 137 Potassium (3.5 - 5.1 mmol/L) 4.5 Chloride (98 - 107 mmol/L) 99 Carbon Dioxide (22 - 30 mmol/L) 22 Anion Gap (5 - 16) 16 BUN (7 - 17 mg/dL) 44 H Creatinine (0.5 - 1.0 mg/dL) 1.1 H Estimated GFR (>60 ml/min) 47 L BUN/Creatinine Ratio (7 - 25 %) 40.0 H Glucose (65 - 99 mg/dL) 174 H Lactic Acid (0.7 - 2.1 mmol/L) 6.6 H Calcium (8.4 - 10.2 mg/dL) 9.3 Total Bilirubin (0.2 - 1.3 mg/dL) 1.3 AST (14 - 36 U/L) 100 H ALT (9 - 52 U/L) 85 H Alkaline Phosphatase (<127 U/L) 229 H Total Protein (6.3 - 8.2 g/dL) 6.2 L Albumin (3.5 - 5.0 g/dL) 2.9 L Globulin (1.9 - 4.2 gm/dL) 3.3 Albumin/Globulin Ratio (1.1 - 2.2 %) 0.9 L TSH (0.270 - 4.200 uIU/mL) 5.160 H Free T4 (0.85 - 1.93 ng/dL) 2.16 H Coagulation PT (9.4 - 12.5 SEC) 12.9 H INR (0.90 - 1.19) 1.18 APTT (25 - 37 SEC) 27 Hematology CBC w Diff MAN DIFF ORDERED WBC (4.8 - 10.8 /CUMM) 20.8 H RBC (4.20 - 5.40 /CUMM) 4.85 Hgb (12.0 - 16.0 G/DL) 14.2 Hct (37 - 47 %) 42.2 MCV (81.0 - 99.0 FL) 86.8 MCH (27.0 - 31.0 PG) 29.2 MCHC (33.0 - 37.0 G/DL) 33.7 RDW (11.5 - 14.5 %) 14.5 Plt Count (130 - 400 /CUMM) 410 H MPV (7.4 - 10.4 FL) 7.8 Gran % (42.2 - 75.2 %) 93.4 H Lymphocytes % (20.5 - 51.1 %) 3.7 L Monocytes % (1.7 - 9.3 %) 2.6 Eosinophils % (0 - 5 %) 0.1 Basophils % (0.0 - 2.0 %) 0.2 Absolute Granulocytes (1.4 - 6.5 /CUMM) 19.4 H Segmented Neutrophils (42.2 - 75.2 %) 88 H Absolute Lymphocytes (1.2 - 3.4 /CUMM) 0.8 L Lymphocytes (20.5 - 51.1 %) 7 L Monocytes (1.7 - 9.3 %) 5 Absolute Monocytes (0.10 - 0.60 /CUMM) 0.5 Absolute Eosinophils (0.0 - 0.7 /CUMM) 0 Absolute Basophils (0.0 - 0.2 /CUMM) 0 Platelet Estimate (ADEQUATE) VERIFIED BY SMEAR Normocytic RBCs VERIFIED Normochromic RBCs VERIFIED Microbiology Date/Time Procedure - Status Source Growth 09/29 1027 Legionella Antigen - COLB URINE ROUT 09/29 1027 Streptococcus pneumoniae Antigen (M - COLB URINE ROUT 09/28 1910 Surveillance Culture - COMP GI 09/28 190 Surveillance Culture - COMP UPPER RESP 09/29 1823 Urine Culture - CAN URINE ROUT Cancelled: SPECIMEN NOT RECEIVED IN LABORATORY 09/28 1812 Blood Culture - RES BLOOD 09/28 1800 Blood Culture - RES BLOOD Objective Current Medications: Current Medications Sig/Telly Start time Last Medication Dose Route Stop Time Status Admin Amiodarone HCl 400 MG BID 09/29 1929 AC 09/29 PO 2031 Amiodarone HCl/ 360 MG Q12H 09/28 1645 DC 09/29 Dextrose IV 1623 N/A 1 UNIT Amoxicillin/ 875 MG Q12 09/29 2100 AC 09/29 Clavulanate Potassium PO 2026 Ampicillin Sodium/ 1,500 MG Q6 09/28 1800 DC 09/29 Sulbactam Sodium IV 0509 Sodium Chloride 100 ML Apixaban 5 MG BID 09/28 1545 AC 09/29 PO 2026 Magnesium Oxide 400 MG ONE ONE 09/30 0730 DC PO 09/30 0631 Metoprolol Tartrate 5 MG ONCE ONE 09/29 1930 DC 09/29 IV 09/29 193 1930 Metoprolol Tartrate 5 MG BID 09/29 1915 DC IV Vital Signs & I&O Last 24 Hrs of Vitals and I&O: Vital Signs Date Time Temp Pulse Resp B/P B/P Pulse O2 O2 Flow FiO2 Mean Ox Delivery Rate 09/30 0400 95 Room Air 09/30 0021 99.4 90 26 98/00 98 Nasal 2.0L Cannula 09/30 0000 98 Nasal 2.0L Cannula 09/29 2032 111 92/68 09/29 2000 96 Nasal 2.0L Cannula 09/29 1930 114 98/60 09/29 1623 110 107/70 09/29 1600 96 Nasal 2.0L Cannula 09/29 1600 98.6 86 16 98/62 94 Nasal 2.0L Cannula 09/29 1200 96 Nasal 2.0L Cannula Intake & Output 09/30 1600 09/30 0800 09/30 0000 Intake Total 340 563.5 Output Total 1 0 Balance 339 563.5 Intake, IV 0 83.5 Intake, Oral 340 480 Number 0 0 Bowel Movements Output, Urine 1 0 Impression/Plan Impression/Plan Impression/Plan: General Appearance Alert, Oriented X3, Cooperative, No Acute Distress Skin No Rashes, No Breakdown HEENT Atraumatic, PERRLA, EOMI Cardiovascular Normal S1, Normal S2, IRREGULARLY IRREGULAR Lungs Crackles bilateral lung griffiths Abdomen Normal Bowel Sounds, Soft, No Tenderness Extremities No Clubbing, No Cyanosis, Normal Pulses, trace pedal edema MS. Thayer is an 87-year-old lady with no known past medical history and reported noncompliance with doctor visits for several years was recently admitted to [facility] (09/21-09/24) after a mechanical fall and was found to be in Atrial fibrillation at that time, is brought in by the family members for evaluation of dyspnea and decreased PO intake ISSUES * Pt with Chronic afib with increased ventricular response mild chf with preserved EF from before with mild HFpEF * Resolved hypotension with increased jvd, crackles with left more than rt effusion consistant with low cardiac output, from rapid afib, and pt is being attempted with chemical cardioversion by amio and on eloquis * Left lower lobe atx with effsusion due to pulm edema no clinical evidence of aspiration pna but need to rule out, unlikely cap * No active evidence of pyogenic pna or any other bacterial infection * Transaminitis due to liver congestion and ischemia from low cardiac output, needs further blood work, if worse. 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 No evidence of hyperthyroidism * Improving rhabdo from a fall * Resolved LActic acidosis due to poor cardiac out put REC Cont amio and eloquis. If the LFTs continued to be rising obtain ultrasound of the liver and gallbladder. Obtain hepatitis C antibody and hepatitis B surface antigen. Patient should be transferred to telemetry Discontinue antibiotics after total of 5 days Wishes no other intervention, invasively if worse wishes comfort care Rpt lft and cpk in a.m. Encourage po, PT evaluation Pt absolutely wishes no invasive work up, wishes no bass, tlc or electrical cardioversion, or any life support DNR/DNI no aggressive therapy
--- NOTE | 2017-09-30 15:10 | Cons- Endocrinology ---
General Information and HPI Consulting Request Date of Consult: 09/30/17 Requested By: ICU team Reason for Consult: evaluation of abnormal TFT Source of Information: patient Exam Limitations: no limitations History of Present Illness: 87 year old female with recently diagnosed with atrial fibrillation and refused treatment. She was readmitted with complaints of rapid palpitations, shortness of breath and mild lightheadedness. She was in atrial fibrillation with rapid ventricular rate and she was put on Amiodarone 400 mg twice a day. Blood work showed TSH 5.16 and free T4 2.16. As per patient, she was told that she had thyroid disorder in her early 20s and she didn't need to take medication at that point. Allergies/Medications Allergies: Coded Allergies: No Known Allergies (09/20/17) Review of Systems Review of Systems Constitutional: Reports: see HPI. Cardiovascular: Reports: palpitations. Respiratory: Reports: short of breath. GI: Denies: abdominal pain. Hematologic/Endocrine: Denies: polyuria, polydipsia. 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 Home Services at Home: None Smoking Status: Never Smoked ETOH Use: denies use Illicit Drug Use: denies illicit drug use Exam & Diagnostic Data Last 24 Hrs of Vital Signs/I&O Vital Signs Date Time Temp Pulse Resp B/P B/P Pulse O2 O2 Flow FiO2 Mean Ox Delivery Rate 09/30 0902 106 100/70 09/30 0800 97.7 106 16 100/70 93 Room Air 09/30 0400 95 Room Air 09/30 0021 99.4 90 26 98/00 98 Nasal 2.0L Cannula 09/30 0000 98 Nasal 2.0L Cannula 09/30 2031 111 92/68 09/29 2000 96 Nasal 2.0L Cannula 09/29 1930 114 98/60 Intake & Output 09/30 1600 09/30 0800 09/30 0000 Intake Total 720 340 563.5 Output Total 700 1 0 Balance 20 339 563.5 Intake, IV 0 0 83.5 Intake, Oral 720 340 480 Number 1 0 0 Bowel Movements Output, Urine 700 1 0 Physical Exam General Appearance: no apparent distress Neck: no significant thyromegaly Respiratory: lungs clear Cardiovascular: regular rate/rhythm Extremities: no edema Labs/Bridger Results: Laboratory Tests 09/30 0419 Chemistry Sodium (137 - 145 mmol/L) 136 L Potassium (3.5 - 5.1 mmol/L) 3.8 Chloride (98 - 107 mmol/L) 103 Carbon Dioxide (22 - 30 mmol/L) 25 Anion Gap (5 - 16) 9 BUN (7 - 17 mg/dL) 39 H Creatinine (0.5 - 1.0 mg/dL) 0.9 Estimated GFR (>60 ml/min) 60 Glucose (65 - 99 mg/dL) 91 Calcium (8.4 - 10.2 mg/dL) 8.0 L Phosphorus (2.5 - 4.5 mg/dL) 2.7 Magnesium (1.6 - 2.3 mg/dL) 2.0 Total Bilirubin (0.2 - 1.3 mg/dL) 0.5 Direct Bilirubin (< 0.4 mg/dL) 0.3 AST (14 - 36 U/L) 148 H ALT (9 - 52 U/L) 163 H Alkaline Phosphatase (<127 U/L) 306 H Creatine Kinase (30 - 135 U/L) 821 H Total Protein (6.3 - 8.2 g/dL) 4.9 L Albumin (3.5 - 5.0 g/dL) 2.1 L TSH (0.270 - 4.200 uIU/mL) 1.840 Free T4 (0.85 - 1.93 ng/dL) 1.80 Hematology CBC w Diff MAN DIFF ORDERED WBC (4.8 - 10.8 /CUMM) 15.6 H RBC (4.20 - 5.40 /CUMM) 3.98 L Hgb (12.0 - 16.0 G/DL) 11.4 L Hct (37 - 47 %) 34.7 L MCV (81.0 - 99.0 FL) 87.3 MCH (27.0 - 31.0 PG) 28.8 MCHC (33.0 - 37.0 G/DL) 32.9 L RDW (11.5 - 14.5 %) 14.6 H Plt Count (130 - 400 /CUMM) 355 MPV (7.4 - 10.4 FL) 7.8 Gran % (42.2 - 75.2 %) 89.1 H Lymphocytes % (20.5 - 51.1 %) 5.2 L Monocytes % (1.7 - 9.3 %) 5.0 Eosinophils % (0 - 5 %) 0.7 Basophils % (0.0 - 2.0 %) 0 Absolute Granulocytes (1.4 - 6.5 /CUMM) 13.9 H Segmented Neutrophils (42.2 - 75.2 %) 85 H Band Neutrophils (0.0 - 5.0 %) 2 Absolute Lymphocytes (1.2 - 3.4 /CUMM) 0.8 L Lymphocytes (20.5 - 51.1 %) 7 L Monocytes (1.7 - 9.3 %) 6 Absolute Monocytes (0.10 - 0.60 /CUMM) 0.8 H Absolute Eosinophils (0.0 - 0.7 /CUMM) 0.1 Absolute Basophils (0.0 - 0.2 /CUMM) 0 Platelet Estimate (ADEQUATE) ADEQUATE Polychromasia 1+ Hypochromic-Microcytic 1+ Poikilocytosis 1+ Ovalocytes 1+ Other Body Source Fld Total RBCs Counted (%) 100 Serology Hepatitis A IgM Ab (NONREACTIVE) NONREACTIVE Hep Bs Antigen (NONREACTIVE) NONREACTIVE Hep B Core IgM Ab Conf (NONREACTIVE) NONREACTIVE Hepatitis C Antibody (NONREACTIVE) NONREACTIVE Assessment/Plan Assessment/Plan 87 year old female with recently diagnosed with atrial fibrillation and refused treatment. She was readmitted with complaints of rapid palpitations, shortness of breath and mild lightheadedness. She was in atrial fibrillation with rapid ventricular rate and she was put on Amiodarone 400 mg twice a day. Blood work showed TSH 5.16 and free T4 2.16. Repeat TFT showed TSH 1.84, free T4 1.80. The abnormal TFT on admission most likely is due to sick euthyroid changes. However, I will recommend checking thyroid antibody panel just to amke sure. As she has been on Amiodarone which might affect thyroid function, I will recommend having a repeat thyroid function done in 2-3 weeks. Consult Acknowledgment - Thank you for your consult request.
[2017-09-30 16:00] VITALS: BP 82/40
--- NOTE | 2017-09-30 17:12 | ECHOCARDIOGRAM REPORT ---
ALLI MUNOZ Age: 87 : 1930 Gender: F Exam Date: 09/29/2017 19:08 Exam Location: [facility] Ht (in): 66 Wt (lb): 168 BSA: 1.90 BP: 96 / 69 Ordering Physician: Malik Martini MD Referring Physician: South Dobbs MD, PhD Technologist: Enedina Barone [facility] Room Number: 102 Indications: AFIB/FLUTTER Rhythm: Atrial fibrillation Technical Quality: good FINDINGS Left Ventricle Normal left ventricular size with mild left ventricular hypertrophy. Normal systolic function with no obvious regional wall motion abnormalities. The ejection fraction is visually estimated at 50- 55%. Right Ventricle The right ventricle is normal in size and function. Right Atrium The right atrium is normal in size. Left Atrium The left atrium is normal in size. The interatrial septum is intact. Mitral Valve The mitral valve is normal in structure and function. There is mild mitral regurgitation. Aortic Valve Mildly thickened aortic valve without significant sclerosis or stenosis. There is no aortic regurgitation. Tricuspid Valve The tricuspid valve is normal in structure and function. There is mild to moderate tricuspid regurgitation. Pulmonary artery systolic pressure is normal. Pulmonic Valve Structurally normal pulmonic valve. There is mild pulmonic regurgitation. Pericardium Normal pericardium with trace effusion. No pleural effusion. Great Vessels Normal aortic root dimension. The aortic arch and great vessels are well seen and are normal. CONCLUSIONS 1. Low normal EF of 50-55%. 2. Mild left ventricular hypertrophy. 3. Mild mitral regurgitation 4. Mild to moderate tricuspid regurgitation. 5. Mild pulmonic regurgitation. 6. Trace pericardial effusion. South Dobbs M.D. (Electronically Signed) Final Date: 30 Sep 2017 17:11 MEASUREMENTS (Male / Female) Normal Values 2D ECHO LV Diastolic Diameter PLAX 4.1 cm 4.2 - 5.9 / 3.9 - 5.3 cm LV Systolic Diameter PLAX 2.7 cm 2.1 - 4.0 cm LV Fractional Shortening PLAX 34.1 % 25 - 46 % LV Ejection Fraction 2D Teich 63.6 % IVS Diastolic Thickness 1.3 cm LVPW Diastolic Thickness 1.2 cm LV Relative Wall Thickness 0.6 RV Internal Dim ED PLAX 2.4 cm 1.9 - 3.8 cm LVOT Diameter 2.2 cm Aortic Root Diameter 3.3 cm LA Systolic Diameter LX 3.8 cm 3.0 - 4.0 / 2.7 - 3.8 cm LA Volume 52.0 cm 18 - 58 / 22 - 52 cm Ascending Aorta Diameter 3.8 cm DOPPLER AV Peak Velocity 110.0 cm/s AV Peak Gradient 4.8 mmHg AV Mean Velocity 82.6 cm/s AV Mean Gradient 3.0 mmHg AV Velocity Time Integral 17.3 cm LVOT Peak Velocity 62.4 cm/s LVOT Peak Gradient 1.6 mmHg LVOT Mean Velocity 40.0 cm/s LVOT Mean Gradient 1.0 mmHg LVOT Velocity Time Integral 9.4 cm LVOT Stroke Volume 35.7 cm AV Area Cont Eq vti 2.1 cm AV Area Cont Eq pk 2.2 cm MV Peak Velocity 86.8 cm/s MV Peak Gradient 3.0 mmHg MV Mean Velocity 48.7 cm/s MV Mean Gradient 1.0 mmHg Mitral E Point Velocity 80.0 cm/s MV PHT Velocity 87.3 cm/s MV Deceleration Rooks 294.0 cm/s MV Pressure Half Time 89.1 ms MV Area PHT 2.5 cm MV Deceleration Time 164.0 ms TR Peak Velocity 235.0 cm/s TR Peak Gradient 22.1 mmHg Right Atrial Pressure 5.0 mmHg Pulmonary Artery Systolic Pressu 27.1 mmHg Right Ventricular Systolic Press 27.1 mmHg PV Peak Velocity 80.6 cm/s PV Peak Gradient 2.6 mmHg PV Mean Velocity 51.7 cm/s PV Mean Gradient 1.0 mmHg PV Velocity Time Integral 9.4 cm LV E' Lateral Velocity 11.8 cm/s Mitral E to LV E' Lateral Ratio 6.8 LV E' Septal Velocity 7.0 cm/s Mitral E to LV E' Septal Ratio 11.4
--- NOTE | 2017-09-30 17:33 | PN- Cardiology ---
Subjective Subjective: * Ronit feels tired out and feels intermittent palpitations. She is not lightheaded and denies chest discomfort. * Hepatic transaminases have risen. * atrial fibrillation with increased heart rate persists. * Increased WBC count of 15.6 Objective Vital Signs and I&Os Vital Signs Date Time Temp Pulse Resp B/P B/P Pulse O2 O2 Flow FiO2 Mean Ox Delivery Rate 09/30 1600 98.7 126 16 82/40 95 Room Air 09/30 0902 106 100/70 09/30 0800 97.7 106 16 100/70 93 Room Air 09/30 0400 95 Room Air 09/30 0021 99.4 90 26 98/00 98 Nasal 2.0L Cannula 09/30 0000 98 Nasal 2.0L Cannula 09/29 203 111 92/68 09/29 2000 96 Nasal 2.0L Cannula 09/29 1930 114 98/60 Intake & Output 09/30 1600 09/30 0800 09/30 0000 09/29 1600 09/29 0800 09/29 0000 Intake Total 720 340 563.5 934 330 333.2 Output Total 700 1 0 Balance 20 339 563.5 934 330 333.2 Intake, IV 0 0 83.5 134 330 333.2 Intake, Oral 720 340 480 800 Number 1 0 0 1 Bowel Movements Output, Urine 700 1 0 Patient 168 lb Weight Weight Bed scale Measurement Method Physical Exam: General: WD/WN female in NAD; alert and oriented x 3 HEENT: NC/AT, PERRL, EOMI Neck: no JVD, no carotid bruit Heart: irregularly irregular and tachycardic with 2/6 systolic murmur Lungs: clear bilaterally ABdomen: soft, NT, +ve bowel sounds Extremities: 1+ left LE edema Assessment/Plan Assessment/Plan * This patient may have a low blood pressure due to sepsis considering her initial elevated serum lactate level and persistent increase in WBC count. Atrial fibrillation may also be a contributor although her heart rate is not severely elevated and, as such, should not result in severe hemodynamic compromise. Her EF on a recent echocardiogram by Dr. Mccarthy and was normal and I find on repeat echo that it is in the low normal range. There is no pulmonary hypertension. Cultures are pending with no growth so far. * This patient is on Amiodarone for rate control but has not proved very effective and now appears to be associated with elevated hepatic transaminases. We will stop this medication and begin digoxin and lopressor for rate control. We will monitor for maintenance of an adequate blood pressure. Begin digoxin with a load of 0.5mg followed by 0.25mg in 8 hours. We will use a bit smaller loading dose than typical since Amiodarone can increase its level. Since she continues to be tachycardic we will give Lopressor 5mg IV and monitor for hypotension. If she becomes clearly hemodynamically stable then chemical cardioversion with ibutilide would be indicated or even DC cardioversion if she agrees to it. I would not be inclined to cardiovert in the absense of hemodynamic instability unless a MARIAM was negative for thrombus since this patient has been in [facility] hospital to develop intracardiac thrombus. At present she refuses procedures such as DC cardioversion or MARIAM but this discussion can be revisited if neede. Continue anticoagulation with Eliquis 5mg BID. * Obtain an ID consult for the patient's persistent increased WBC count and presentation suggestive of sepsis. Continue telemetry? Yes
[2017-09-30 23:37] VITALS: BP 92/68
[2017-10-01 02:43] LABS: ABSOLUTE BASOPHIL COUNT 0 /CUMM (0.0-0.2); ABSOLUTE EOSINOPHIL COUNT 0.1 /CUMM (0.0-0.7); ABSOLUTE GRANULOCYTE CT 13.1 /CUMM (1.4-6.5); ABSOLUTE LYMPH COUNT 0.9 /CUMM (1.2-3.4); ABSOLUTE MONOCYTE COUNT 0.5 /CUMM (0.10-0.60); BASOPHIL % 0 % (0.0-2.0); EOSINOPHIL % 0.6 % (0-5); GRANULOCYTE % 89.6 % (42.2-75.2); HEMATOCRIT 35.4 % (37-47); MEAN CORPUSCULAR HGB 28.9 PG (27.0-31.0); MEAN CORPUSCULAR HGB CONC 33.4 G/DL (33.0-37.0); MEAN CORPUSCULAR VOLUME 86.6 FL (81.0-99.0); MEAN PLATELET VOLUME 7.8 FL (7.4-10.4); PLATELET COUNT 401 /CUMM (130-400); RBC DISTRIBUTION WIDTH 14.6 % (11.5-14.5); RED BLOOD CELL CT 4.08 /CUMM (4.20-5.40); WHITE BLOOD CELL COUNT 14.7 /CUMM (4.8-10.8)
--- NOTE | 2017-10-01 07:16 | PN- Resident CRCU ---
Subjective HPI/CRCU Issues: No acute events overnight. Afib still not controlled. Cardiology wants MARIAM to r/ o thrombus for DC cardioversion. Pt reluctant to have MARIAM and cardioversion. Objective Vital Signs & I&O Last 8 Hrs of Vitals and I&O: Laboratory Tests 10/01/17 0225: Anion Gap 11, Estimated GFR 60, Glucose 108 H, Calcium 7.9 L, Phosphorus 2.8, Magnesium 1.9, Total Bilirubin 1.0, Direct Bilirubin 0.5 H, AST 101 H, ALT 145 H, Alkaline Phosphatase 354 H, Creatine Kinase 538 H, Total Protein 5.1 L, Albumin 2.2 L, CBC w Diff MAN DIFF ORDERED, RBC 4.08 L, MCV 86.6, MCH 28.9, MCHC 33.4, RDW 14.6 H, MPV 7.8, Gran % 89.6 H, Lymphocytes % 6.2 L, Monocytes % 3.6, Eosinophils % 0.6, Basophils % 0, Absolute Granulocytes 13.1 H, Segmented Neutrophils 89 H, Absolute Lymphocytes 0.9 L, Lymphocytes 6 L, Monocytes 5, Absolute Monocytes 0.5, Absolute Eosinophils 0.1, Absolute Basophils 0, Platelet Estimate INCREASED, Polychromasia 1+, Poikilocytosis 1+, Ovalocytes 1+, Fld Total RBCs Counted 100, Digoxin Pending Vital Signs Date Time Temp Pulse Resp B/P B/P Pulse O2 O2 Flow FiO2 Mean Ox Delivery Rate 10/01 1246 100 94/60 10/01 0955 118 84/54 10/01 0953 118 84/54 10/01 0800 98.4 96 20 94/60 94 Room Air 10/01 0618 105 94/70 10/01 0000 92 Room Air 09/30 2337 99.3 82 26 92/68 92 Room Air 09/30 2114 111 102/70 09/30 2111 111 102/70 09/30 1825 128 90/60 09/30 1600 98.7 126 16 82/40 95 Room Air Intake & Output 10/01 1600 10/01 0800 06 0000 Intake Total 240 360 Output Total 300 700 Balance -300 -460 360 Intake, IV 0 Intake, Oral 240 360 Number 1 1 Bowel Movements Output, Urine 300 700 Patient 164 lb Weight Weight Bed scale Measurement Method Exam General Appearance: no apparent distress, alert, awake Respiratory: normal breath sounds Cardiovascular: irregularly irregular. tachycardia Gastrointestinal: normal bowel sounds, soft, non-tender Extremities: 1/2+ LE edema b/l. 1+ radial pulses b/l Current Medications: Current Medications Sig/Telly Start time Last Medication Dose Route Stop Time Status Admin Amiodarone HCl 400 MG BID 09/29 1930 DC 09/30 PO 0902 Amoxicillin/ 875 MG Q12 09/29 2100 AC 10/01 Clavulanate Potassium PO 0951 Apixaban 5 MG BID 09/28 1545 AC 10/01 PO 0951 Digoxin 0.25 MG Q8 09/30 2200 AC 10/01 PO 10/01 1401 1009 Digoxin 0.5 MG ONCE ONE 09/30 1800 CAN PO 09/30 1801 Digoxin 0.5 MG ONCE ONE 09/30 1800 DC 09/30 IV 09/30 180 1825 Metoprolol Tartrate 25 MG BID 09/30 1800 AC 09/30 PO 2114 Impression/Plan Impression/Problem List Impression: A: 87-yo F with no significant pmhx and history of reported noncompliance with doctor visits for several years was recently admitted to [facility] (09/21 -09/24) after a mechanical fall and was found to be in atrial fibrillation at that time and left AMA with incomplete treatment of beta maia and amiodarone. She returns for after being found on the floor and was convinced by family members to be evaluated for shortness of breath and decreased by mouth intake. She was found to have afib with rvr, possible pna, possible UTI, and chf. P: #A. fib with RVR The patient was found to be in A. fib with RVR. She was started on heparin drip and amiodarone drip. Heparin drip was discontinued and she was started on by mouth Eliquis. Switched from oral amiodarone to digoxin due to hepatitis/ abnormal LFTs. Echo: EF 50-55% with trace pericardial effusion -Digoxin level elevated @ 4. holding digoxin. -Continue Eliquis -cont lopressor PO. -afib not controlled with digoxin. await MARIAM and DC cardioversion if patient agrees. -cont cardiology recommendations #CHF most likely secondary to A. fib ProBNP elevated 9480 CT abd/pelvis: Small bilateral pleural effusions with bibasilar infiltrate/ atelectasis -Continue holding IV fluids #Abnormal LFTs most likely secondary to hepatic congestion from CHF Initial T bili 1.3 ,AST 100, ALT 85, ALP 229 Heptic function still elevated Hepatitis panel negative -f/u RUQ US #Left lower lobe effusion due to pulmonary edema ?Pneumonia WBC was initially elevated 20.8 She continues to be afebrile Lactic acidosis resolved after 2 L of fluids Chest x-ray : Persistent left basilar opacity and small pleural effusion -Continues to have borderline hypotension but patient refuses any central line pressors -Switched from Unasyn to Augmentin. will dc abx after 5 days total (currently has taken 1.5 days thus far) -f/u cultures #Recent fall with rhabdomyolysis The patient was found on floor by family Creatinine kinase elevated at 1450 Has received 2L of fluids Doppler ultrasound negative for DVT CK is improving -f/u xry of pelvis hip and femur on L side -Holding fluids as patient has CHF. 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 Atrial fibrillation with RVR Pain Ratin Tomorrow's Labs & Rationales: icu cbc cpk lft Plan DVT/Prophylaxis: eliquis
[2017-10-01 08:00] VITALS: BP 94/60
--- NOTE | 2017-10-01 09:36 | PN- Endocrinology ---
Assessment/Plan Endoscopy Assessment: 87 year old female with recently diagnosed with atrial fibrillation and refused treatment. She was readmitted with complaints of rapid palpitations, shortness of breath and mild lightheadedness. She was in atrial fibrillation with rapid ventricular rate and she was put on Amiodarone 400 mg twice a day. Blood work showed TSH 5.16 and free T4 2.16. Repeat TFT showed TSH 1.84, free T4 1.80. Her anti TPO was < 28 and anti Tg was 18. Amiodarone was discontinued on . The abnormal TFT on admission most likely is due to sick euthyroid changes. Plan: detail see above. Subjective Subjective: She feels well this morning. Objective Last 24 Hrs of Vital Signs/I&O Vital Signs Date Time Temp Pulse Resp B/P B/P Pulse O2 O2 Flow FiO2 Mean Ox Delivery Rate 10/01 0618 105 94/70 10/01 0000 92 Room Air 09/30 2337 99.3 82 26 92/68 92 Room Air 09/30 2114 111 102/70 09/30 2111 111 102/70 09/30 1825 128 90/60 09/30 1600 98.7 126 16 82/40 95 Room Air Intake & Output 10/01 1600 10/01 0800 10/01 0000 Intake Total 240 360 Output Total 700 Balance -460 360 Intake, IV 0 Intake, Oral 240 360 Number 1 Bowel Movements Output, Urine 700
--- NOTE | 2017-10-01 09:52 | PN- Pulmonary ---
Subjective HPI/Critical Care Issues: DOing well Has mild pain in the left hip Stable otherwise Still has sig elevated HR Objective Current Medications: Current Medications Sig/Telly Start time Last Medication Dose Route Stop Time Status Admin Amiodarone HCl 400 MG BID 09/29 1930 DC 09/30 PO 0902 Amoxicillin/ 875 MG Q12 09/29 2100 AC 09/30 Clavulanate Potassium PO 2113 Apixaban 5 MG BID 09/28 1545 AC 09/30 PO 2111 Digoxin 0.25 MG Q8 09/30 2200 AC 10/01 PO 10/01 1401 0618 Digoxin 0.5 MG ONCE ONE 09/30 1800 CAN PO 09/30 1801 Digoxin 0.5 MG ONCE ONE 09/30 1800 DC 09/30 IV 09/30 180 1825 Metoprolol Tartrate 25 MG BID 09/30 1800 AC 09/30 PO 211 Vital Signs & I&O Last 24 Hrs of Vitals and I&O: Vital Signs Date Time Temp Pulse Resp B/P B/P Pulse O2 O2 Flow FiO2 Mean Ox Delivery Rate 10/01 06 105 94/70 10/01 0000 92 Room Air 09/30 2337 99.3 82 26 92/68 92 Room Air 09/304 111 102/70 09/30 2111 111 102/70 09/30 1825 128 90/60 09/30 1600 98.7 126 16 82/40 95 Room Air Intake & Output 10/01 1600 10/01 0800 06 0000 Intake Total 240 360 Output Total 700 Balance -460 360 Intake, IV 0 Intake, Oral 240 360 Number 1 Bowel Movements Output, Urine 700 Impression/Plan Impression/Plan Impression/Plan: General Appearance Alert, Oriented X3, Cooperative, No Acute Distress Skin No Rashes, No Breakdown HEENT Atraumatic, PERRLA, EOMI Cardiovascular Normal S1, Normal S2, IRREGULARLY IRREGULAR Lungs Crackles bilateral lung griffiths Abdomen Normal Bowel Sounds, Soft, No Tenderness Extremities No Clubbing, No Cyanosis, Normal Pulses, trace pedal edema MS. Thayer is an 87-year-old lady with no known past medical history and reported noncompliance with doctor visits for several years was recently admitted to [facility] (09/21-09/24) after a mechanical fall and was found to be in Atrial fibrillation at that time, is brought in by the family members for evaluation of dyspnea and decreased PO intake ISSUES * Pt with Chronic afib with increased ventricular response mild chf with preserved EF from before with mild HFpEF * Resolved hypotension * Left lower lobe atx with effsusion due to pulm edema no clinical evidence of aspiration pna but need to rule out, unlikely cap * No active evidence of pyogenic pna or any other bacterial infection * Transaminitis due to liver congestion and ischemia from low cardiac output, needs further blood work, if worse. 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 No evidence of hyperthyroidism * Improving rhabdo from a fall * Resolved LActic acidosis due to poor cardiac out put REC Ultrasound of liver and GB Check pelvis and hip and femur xray of the left side Patient should be transferred to telemetry Discontinue antibiotics after total of 5 days Check dig level Wishes no other intervention, invasively if worse wishes comfort care, wishes no further consults Rpt lft daily Encourage po, PT evaluation Pt absolutely wishes no invasive work up, wishes no bass, tlc or electrical cardioversion, or any life support DNR/DNI no aggressive therapy
[2017-10-01 09:53] VITALS: BP 84/54
--- NOTE | 2017-10-01 10:39 | PN- Cardiology ---
Subjective Subjective: * Patient complains of leg discomfort. * Atrial fibrillation with increased heart rate and borderline BP. * hepatic transaminases improving off Amiodarone Objective Vital Signs and I&Os Vital Signs Date Time Temp Pulse Resp B/P B/P Pulse O2 O2 Flow FiO2 Mean Ox Delivery Rate 10/01 0953 118 84/54 10/01 0618 105 94/70 10/01 0000 92 Room Air 09/30 2337 99.3 82 26 92/68 92 Room Air 09/30 2114 111 102/70 09/30 2111 111 102/70 09/30 1825 128 90/60 09/30 1600 98.7 126 16 82/40 95 Room Air Intake & Output 10/01 1600 10/01 0800 10/01 0000 09/30 1600 09/30 0800 09/30 0000 Intake Total 240 360 720 340 563.5 Output Total 700 700 1 0 Balance -460 360 20 339 563.5 Intake, IV 0 0 0 83.5 Intake, Oral 240 360 720 340 480 Number 1 1 0 0 Bowel Movements Output, Urine 700 700 1 0 Physical Exam: General: WD/WN female in NAD; alert and oriented x 3 HEENT: NC/AT, PERRL, EOMI Neck: no JVD, no carotid bruit Heart: irregularly irregular and tachycardic with 2/6 systolic murmur Lungs: clear bilaterally ABdomen: soft, NT, +ve bowel sounds Extremities: 1+ left LE edema Assessment/Plan Assessment/Plan * This patient may have a low blood pressure due to sepsis considering her initial elevated serum lactate level and persistent increase in WBC count. She reports that her baseline blood pressure is always low. Atrial fibrillation may also be a contributor although her heart rate is not severely elevated and, as such, should not result in severe hemodynamic compromise. Her EF on a recent echocardiogram by Dr. Mccarthy and was normal and I find on repeat echo that it is in the low normal range. There is no pulmonary hypertension. Cultures are pending with no growth so far. * This patient was on Amiodarone which has been discontinued due to concern that it was raising her hepatic transaminases. Her LFT's are improving off this medications. Amiodarone was initially started in the setting of hemodynamic instability for atrial fibrillation. At this point in time, since more stable, I would not be inclined to utilize a drug or DC cardioversion unless for rate control but has not proved very effective and now appears to be associated unless we confirmed the absence of intracardiac thrombus via a MARIAM. The patient remains difficult to control in terms of heart rate so we will pursue a MARIAM followed by DC cardioversion to be done by Dr. Mccarthy if no evidence of thrombus. * Continue digoxin. Following cardioversion, if done, we will begin a small dose of Sotolol to maintain a sinus rhythm. Continue Eliquis 5mg BID. Continue telemetry? Yes
[2017-10-01 12:46] VITALS: BP 94/60
[2017-10-01 16:00] VITALS: BP 124/62
[2017-10-01 18:45] VITALS: BP 128/62
[2017-10-01 20:15] VITALS: BP 100/74
--- NOTE | 2017-10-01 20:41 | RADIOLOGY REPORT ---
EXAMINATION: 1. Left femur. 2. Pelvis and left hip. CLINICAL INFORMATION: Fall. Pain. COMPARISON: None TECHNIQUE: 1. Left femur. 2 views 2. Pelvis and left hip. Single view pelvis. Cone-down AP and oblique view of the left hip. FINDINGS: 1. Left femur. There is no acute abnormality. No acute fracture or dislocation. 2. Pelvis and left hip. No fracture of the pelvis. 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 The joint space is narrowed with [id number] contact between femoral head and acetabula. There is subchondral sclerosis and cystic changes of both the acetabulum and the femoral head. There is flattening of the superior weightbearing portion of the femoral head. There is spurring about the femoral head and acetabula inferiorly. There is joint narrowing of the right hip but no significant spur, now subchondral cystic changes or erosions. There is degenerative spondylosis of spine with disc height narrowing and endplate spurring at the lower lumbar disc levels. IMPRESSION: 1. Left femur. No fracture left femur. 2. Pelvis and left hip. No fracture of pelvis or either hip. 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 Mild degenerative change of the right hip. Degenerative disc disease of lower lumbar spine.
--- NOTE | 2017-10-01 21:20 | Transfer of Care Summary ---
Hospital Course Course Hospital Course: Reason for transfer to ICU: Amiodarone drip HPI: A: 87-yo F with no significant pmhx and history of reported noncompliance with doctor visits for several years was recently admitted to [facility] (09/21 -09/24) after a mechanical fall and was found to be in atrial fibrillation at that time and left AMA with incomplete treatment of beta maia and amiodarone. She returns for after being found on the floor and was convinced by family members to be evaluated for shortness of breath and decreased by mouth intake. She was found to have afib with rvr, possible pna, possible UTI, and chf. Interval events in the Floor: P: #A. fib with RVR The patient was found to be in A. fib with RVR with hypotension. Echo revealed EF 50-55% with trace pericardial effusion. She was started on heparin drip and amiodarone drip. Heparin drip was discontinued and she was started on by mouth Eliquis. IV amio was changed to oral amiodarone and then to oral digoxin due to hepatitis/abnormal LFTs. However she was found to have elevated dig levels and dig was held. Lopressor was also added for rate control. Cardiology is recommending MARIAM and DC cardioversion at this time but the patient is hesitant -Digoxin level elevated @ 4. holding digoxin. -Continue Eliquis -cont lopressor PO. -afib not controlled with digoxin. await MARIAM and DC cardioversion if patient agrees. #CHF most likely secondary to A. fib She presented with hypotension and was given 2L NS bolus. ProBNP elevated 9480. CT abd/pelvis revealed small bilateral pleural effusions with bibasilar infiltrate/atelectasis. Echo revealed EF 50-55%. No other IVF were given during admission. The patient refused any central lines or pressors and her BP remained stable in the 80s-100s systolic. -Continue holding IV fluids #Abnormal LFTs most likely secondary to hepatic congestion from CHF Initial T bili 1.3 ,AST 100, ALT 85, ALP 229. Hepatic function tests remained elevated during admission. Hepatitis panel was negative. RUQ us pending -f/u RUQ US #Left lower lobe effusion due to pulmonary edema ?Pneumonia WBC was initially elevated 20.8 with lactic acidosis. CXR showed persistent left basilar opacity and small pleural effusion. She was treated with unasyn and then transitioned to po augmentin. She continued to be afebrile during admisson. Strep pneumo and leigonnela urinary antigens were negative. -will dc abx after 5 days total (currently has taken 3 days thus far) -Continues to have borderline hypotension but patient refuses any central line pressors -f/u cultures #Recent fall with rhabdomyolysis The patient was found on floor by family. Creatinine kinase elevated at 1450 and improved with the initial fluid bolus and po fluid intake. Doppler ultrasound was negative for DVT. -f/u xry of pelvis hip and femur on L side -Holding fluids as patient has CHF. 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 Thyroid ab were negative. She was seen by endocrinology who thought her dysfunction was due to sick euthyroid syndrome. -She should have repeat thyroid function tests in 2-3 weeks. #Stage 2 cocyx ulcer Present on admission. Continued wound care NIPPV: Yes/ No (details if Yes) Antibiotics: Augmentin Catheters/ IV access: Peripheral Things to follow up (Blood Cx, Imaging, ABG etc...): -xry of L extremitity -cardiology recs -possible MARIAM with cardioversion -f/u with pcp for repeat thyroid function testing DVT prophylaxis:colton Consultants: cardiology, endocrine Code status: DNR DNI Family updated: Yes/ No Assessment/Plan: See above
[2017-10-02 06:34] VITALS: BP 112/54
[2017-10-02 08:00] LABS: ABSOLUTE BASOPHIL COUNT 0 /CUMM (0.0-0.2); ABSOLUTE EOSINOPHIL COUNT 0.1 /CUMM (0.0-0.7); ABSOLUTE GRANULOCYTE CT 11.4 /CUMM (1.4-6.5); ABSOLUTE LYMPH COUNT 1.1 /CUMM (1.2-3.4); ABSOLUTE MONOCYTE COUNT 0.8 /CUMM (0.10-0.60); BASOPHIL % 0 % (0.0-2.0); EOSINOPHIL % 0.6 % (0-5); GRANULOCYTE % 85.3 % (42.2-75.2); HEMATOCRIT 32.3 % (37-47); MEAN CORPUSCULAR HGB 29.2 PG (27.0-31.0); MEAN CORPUSCULAR HGB CONC 34.1 G/DL (33.0-37.0); MEAN CORPUSCULAR VOLUME 85.6 FL (81.0-99.0); MEAN PLATELET VOLUME 8.2 FL (7.4-10.4); PLATELET COUNT 371 /CUMM (130-400); RBC DISTRIBUTION WIDTH 14.4 % (11.5-14.5); RED BLOOD CELL CT 3.77 /CUMM (4.20-5.40)
--- NOTE | 2017-10-02 09:08 | PN- Housestaff ---
See Addendum Subjective Follow-up For: A.fib CHF Abnormal LFTs Tele-Events Since Last Visit: Clemenciafib HR: 70s-120, PVCs Subjective: Patient was seen and examined today. Patient reports left leg pain with movement attributed to arthritis. Xray was negative for fracture. No other complaints at this time. Is hesitant to undergo cardioversion. No acute events overnight. Review of Systems Constitutional: Reports: see HPI. Objective Last 24 Hrs of Vital Signs/I&O Vital Signs Date Time Temp Pulse Resp B/P B/P Pulse O2 O2 Flow FiO2 Mean Ox Delivery Rate 10/02 1013 81 112/54 10/02 0634 98.6 81 18 112/54 93 Room Air 10/01 2120 122 108/64 10/01 2014 97.9 82 20 100/74 97 Room Air 10/01 1845 98.5 74 18 128/62 10/01 1600 94 Room Air 10/01 1600 98.6 112 24 124/62 95 Room Air 10/01 1246 100 94/60 Intake & Output 10/02 1600 10/02 0800 10/02 0000 Intake Total 120 240 Output Total 200 200 Balance -80 40 Intake, Oral 120 240 Number 2 1 Bowel Movements Output, Urine 200 200 Patient 171 lb Weight Weight Bed scale Measurement Method Physical Exam General Appearance: Alert, Cooperative, No Acute Distress Skin Temp/Moisture Exam: Warm/Dry HEENT: Atraumatic, Mucous Membr. moist/pink Cardiovascular: Normal S1, Normal S2, irregular rate Lungs: Clear to Auscultation, Normal Air Movement Abdomen: Normal Bowel Sounds, Soft, No Tenderness Neurological: Normal Speech, Cranial Nerves 3-12 NL Extremities: No Clubbing, No Cyanosis, No Edema, Normal Pulses, No Tenderness/ Swelling Vascular: Normal Pulses, Pulses Symmetrical Current Medications: Current Medications Sig/Telly Start time Last Medication Dose Route Stop Time Status Admin Amoxicillin/ 875 MG Q12 09/29 2100 AC 10/02 Clavulanate Potassium PO 1012 Apixaban 5 MG BID 09/28 1545 AC 10/02 PO 1012 Digoxin 0.25 MG Q8 09/30 2200 DC 10/01 PO 10/01 1401 1009 Metoprolol Tartrate 25 MG BID 09/30 1800 AC 10/02 PO 1013 Last 24 Hrs of Lab/Bridger Results Last 24 Hrs of Labs/Mics: Laboratory Tests 10/02/17 0640: Anion Gap 9, Estimated GFR 60, Glucose 87, Calcium 7.9 L, Phosphorus 3.0, Magnesium 1.9, Total Bilirubin 0.7, Direct Bilirubin 0.3, AST 66 H, ALT 117 H, Alkaline Phosphatase 313 H, Creatine Kinase 201 H, Total Protein 4.8 L, Albumin 2.0 L, CBC w Diff NO MAN DIFF REQ, RBC 3.77 L, MCV 85.6, MCH 29.2, MCHC 34.1, RDW 14.4, MPV 8.2, Gran % 85.3 H, Lymphocytes % 8.2 L, Monocytes % 5.9, Eosinophils % 0.6, Basophils % 0, Absolute Granulocytes 11.4 H, Absolute Lymphocytes 1.1 L, Absolute Monocytes 0.8 H, Absolute Eosinophils 0.1, Absolute Basophils 0, Digoxin 1.3 Assessment/Plan Assessment: 87-yo F with no significant pmhx and history of reported noncompliance with doctor visits for several years was recently admitted to [facility] (09/21 -09/24) after a mechanical fall and was found to be in atrial fibrillation at that time and left AMA with incomplete treatment of beta maia and amiodarone. She returns for after being found on the floor and was convinced by family members to be evaluated for shortness of breath and decreased by mouth intake. She was found to have afib with rvr, possible pna, possible UTI, and chf. #A. fib with RVR The patient was found to be in A. fib with RVR with hypotension. Echo revealed EF 50-55% with trace pericardial effusion. She was started on heparin drip and amiodarone drip. Heparin drip was discontinued and she was started on by mouth Eliquis. IV amio was changed to oral amiodarone and then to oral digoxin due to hepatitis/abnormal LFTs. However she was found to have elevated dig levels and dig was held. Lopressor was also added for rate control. Cardiology is recommending MARIAM and DC cardioversion at this time but the patient is hesitant. Will re-address this with patient on Wednesday, 10/04. -Repeat digoxin level at 1.3 (down from 4.0) - will await cardiology recommendations prior to restarting -Continue Eliquis -cont lopressor PO. -Patient remains hesistant about MARIAM/DC Cardioversion. MARIAM and DC Cardioversion to be discussed per cardio on Wednesday. Will keep patient NPO Wednesday night. #CHF most likely secondary to A. fib She presented with hypotension and was given 2L NS bolus. ProBNP elevated 9480. CT abd/pelvis revealed small bilateral pleural effusions with bibasilar infiltrate/atelectasis. Echo revealed EF 50-55%. No other IVF were given during admission. The patient refused any central lines or pressors and her BP remained stable in the 80s-100s systolic. -Continue holding IV fluids #Abnormal LFTs most likely secondary to hepatic congestion from CHF Initial T bili 1.3 ,AST 100, ALT 85, ALP 229. Hepatic function tests remained elevated during admission. Hepatitis panel was negative. RUQ ultrasound is negative. -LFTs trending down, RUQ ultrasound is negative, patient remains asymptomatic - continue to monitor LFTs -Avoid hepatotoxic agents #Left lower lobe effusion due to pulmonary edema ?Pneumonia WBC was initially elevated 20.8 with lactic acidosis. CXR showed persistent left basilar opacity and small pleural effusion. She was treated with unasyn and then transitioned to po augmentin. She continued to be afebrile during admisson. Strep pneumo and leigonnela urinary antigens were negative. -will dc abx after 5 days total (currently on day 4) -Continues to have borderline hypotension but patient refuses any central line pressors -f/u cultures #Recent fall with rhabdomyolysis The patient was found on floor by family. Creatinine kinase elevated at 1450 and improved with the initial fluid bolus and po fluid intake. Doppler ultrasound was negative for DVT. Xray of hip and femur negative for fracture. CK level improving -pain control for left leg pain -Holding fluids as patient has CHF. 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 Thyroid ab were negative. She was seen by endocrinology who thought her dysfunction was due to sick euthyroid syndrome. -She should have repeat thyroid function tests in 2-3 weeks. #Stage 2 cocyx ulcer Present on admission. Continued wound care DVT prophylaxis:eliquis Diet: heart healthy Code status: DNR DNI Problem List: 1. Atrial fibrillation with RVR 2. Rhabdomyolysis 3. Transaminitis Pain Ratin Pain Location: left leg/hip Pain Goal: Pain 4 or less Pain Plan: lidocaine patch Tomorrow's Labs & Rationales: CBC BEP LFTs CK
--- NOTE | 2017-10-02 09:22 | PN- Cardiology ---
Subjective Subjective: The patient stable today. Feeling okay. Did not undergo cardioversion yesterday due to scheduling issues. At the moment, she is reluctant to consider cardioversion but will readdress this with Dr. Mccarthy and Rinku on Wednesday Objective Vital Signs and I&Os Vital Signs Date Time Temp Pulse Resp B/P B/P Pulse O2 O2 Flow FiO2 Mean Ox Delivery Rate 10/02 0634 98.6 81 18 112/54 93 Room Air 10/01 2120 122 108/64 10/01 2014 97.9 82 20 100/74 97 Room Air 10/01 1845 98.5 74 18 128/62 10/01 1600 94 Room Air 10/01 1600 98.6 112 24 124/62 95 Room Air 10/01 1246 100 94/60 10/01 0955 118 84/54 10/01 0953 118 84/54 Intake & Output 10/02 1600 10/02 0800 10/02 0000 10/01 1600 10/01 0800 10/01 0000 Intake Total 120 240 360 240 360 Output Total 200 200 550 700 Balance -80 40 -190 -460 360 Intake, IV 0 Intake, Oral 120 240 360 240 360 Number 2 1 2 1 Bowel Movements Output, Urine 200 200 550 700 Patient 171 lb 164 lb Weight Weight Bed scale Bed scale Measurement Method Physical Exam: General Appearance: well developed/nourished, alert, awake, oriented Head: normal HEENT: Normal Neck: supple, JVP normal, carotid upstrokes normal bilaterally, no masses or thyromegaly Respiratory: chest non-tender, clear to auscultation and percussion bilaterally Cardiovascular: irregular rate/rhythm, normal S1, S2, 2/6 systolic murmur Abdomen: normal bowel sounds, soft, non-tender Extremities: normal inspection, no edema Vascular: Pulses are 2+ and equal bilaterally Neurologic: Grossly normal/nonfocal Current Medications: Current Medications Sig/Telly Start time Last Medication Dose Route Stop Time Status Admin Amoxicillin/ 875 MG Q12 09/29 2100 AC 10/01 Clavulanate Potassium PO 2119 Apixaban 5 MG BID 09/28 1545 AC 10/01 PO 212 Digoxin 0.25 MG Q8 09/30 2200 DC 10/01 PO 10/01 1401 1009 Metoprolol Tartrate 25 MG BID 09/30 1800 AC 10/01 PO 2119 Results Last 48 Hrs of Labs/Mics: Laboratory Tests 10/02/17 0640: Anion Gap 9, Estimated GFR 60, Glucose 87, Calcium 7.9 L, Phosphorus 3.0, Magnesium 1.9, Total Bilirubin 0.7, Direct Bilirubin 0.3, AST 66 H, ALT 117 H, Alkaline Phosphatase 313 H, Creatine Kinase 201 H, Total Protein 4.8 L, Albumin 2.0 L, CBC w Diff Pending, WBC Pending, RBC Pending, Hgb Pending, Hct Pending, MCV Pending, MCH Pending, MCHC Pending, RDW Pending, Plt Count Pending, MPV Pending, Gran % Pending, Lymphocytes % Pending, Monocytes % Pending, Eosinophils % Pending, Basophils % Pending, Absolute Granulocytes Pending, Absolute Lymphocytes Pending, Absolute Monocytes Pending, Absolute Eosinophils Pending, Absolute Basophils Pending, Digoxin 1.3 10/01/17 0225: Anion Gap 11, Estimated GFR 60, Glucose 108 H, Calcium 7.9 L, Phosphorus 2.8, Magnesium 1.9, Total Bilirubin 1.0, Direct Bilirubin 0.5 H, AST 101 H, ALT 145 H, Alkaline Phosphatase 354 H, Creatine Kinase 538 H, Total Protein 5.1 L, Albumin 2.2 L, CBC w Diff MAN DIFF ORDERED, RBC 4.08 L, MCV 86.6, MCH 28.9, MCHC 33.4, RDW 14.6 H, MPV 7.8, Gran % 89.6 H, Lymphocytes % 6.2 L, Monocytes % 3.6, Eosinophils % 0.6, Basophils % 0, Absolute Granulocytes 13.1 H, Segmented Neutrophils 89 H, Absolute Lymphocytes 0.9 L, Lymphocytes 6 L, Monocytes 5, Absolute Monocytes 0.5, Absolute Eosinophils 0.1, Absolute Basophils 0, Platelet Estimate INCREASED, Polychromasia 1+, Poikilocytosis 1+, Ovalocytes 1+, Fld Total RBCs Counted 100, Digoxin 4.0 *H Assessment/Plan Assessment/Plan Assessment: 1. Atrial fibrillation with elevated rate and relatively low blood pressure 2. History of HFpEF 3. Elevated liver function tests-improving 4. Pleural effusion 5. History of fall with rhabdomyolysis-CPK improving 6. Mild anemia Recommendations: -Keep patient on monitoring and evaluation advisor -Continue current cardiac medications -Follow-up labs pending -Please keep the patient n.p.o. after midnight Wednesday in case there are any plans for possible MARIAM/cardioversion on Wednesday. Continue telemetry? Yes
[2017-10-02 09:23] LABS: WHITE BLOOD CELL COUNT 13.3 /CUMM (4.8-10.8)
--- NOTE | 2017-10-02 10:59 | ULTRASOUND REPORT ---
EXAMINATION: US ABDOMEN LIMITED CLINICAL INFORMATION: Question gallstones. Elevated LFTs. COMPARISON: None TECHNIQUE: Real-time imaging of the right upper quadrant abdominal viscera. FINDINGS: PANCREAS: Normal. LIVER: Normal. The liver demonstrates normal size, contour and echogenicity. No focal lesion or intrahepatic biliary duct dilatation. GALLBLADDER: Normal. The gallbladder is physiologically distended without evidence of stones, sludge, polyps, wall thickening or pericholecystic fluid. COMMON BILE DUCT: Normal in caliber measuring 0.4 cm in diameter. RIGHT KIDNEY: Normal. No hydronephrosis. No renal calculi or focal parenchymal lesions. The kidney measures 11.1 cm in maximum dimension. FREE FLUID: None. IMPRESSION: No acute process. Normal study.
[2017-10-02 14:14] VITALS: BP 98/50
[2017-10-02 22:00] VITALS: BP 90/60
[2017-10-02 22:35] VITALS: BP 90/60
[2017-10-03 06:46] VITALS: BP 100/70
[2017-10-03 07:52] LABS: ABSOLUTE BASOPHIL COUNT 0 /CUMM (0.0-0.2); ABSOLUTE EOSINOPHIL COUNT 0.2 /CUMM (0.0-0.7); ABSOLUTE GRANULOCYTE CT 11.1 /CUMM (1.4-6.5); ABSOLUTE LYMPH COUNT 1.4 /CUMM (1.2-3.4); ABSOLUTE MONOCYTE COUNT 1.1 /CUMM (0.10-0.60); BASOPHIL % 0.3 % (0.0-2.0); EOSINOPHIL % 1.1 % (0-5); GRANULOCYTE % 80.6 % (42.2-75.2); HEMATOCRIT 35.2 % (37-47); MEAN CORPUSCULAR HGB 28.9 PG (27.0-31.0); MEAN CORPUSCULAR HGB CONC 33.3 G/DL (33.0-37.0); MEAN CORPUSCULAR VOLUME 86.8 FL (81.0-99.0); MEAN PLATELET VOLUME 8.1 FL (7.4-10.4); PLATELET COUNT 447 /CUMM (130-400); RBC DISTRIBUTION WIDTH 15.2 % (11.5-14.5); RED BLOOD CELL CT 4.05 /CUMM (4.20-5.40); WHITE BLOOD CELL COUNT 13.8 /CUMM (4.8-10.8)
--- NOTE | 2017-10-03 08:44 | PN- Housestaff ---
Miriam MONTGOMERY,Shawna 10/03/17 0844: Subjective Follow-up For: Amadou CHF Abnormal LFTs Tele-Events Since Last Visit: Amadou 80s to 90s Subjective: Patient was seen and examined today. Patient continues to refuse MARIAM and cardioversion. Patient believes she will be fine without intervention of any kind. States once she leaves she does not wish to take any medication. Patient reports feeling anxious about the procedures. States her family does not feel she needs to be cardioverted. Patient reports continued left hip pain. Patient refusing any pain medication. Reports no other symptoms at this time. No acute events overnight. Review of Systems Constitutional: Reports: see HPI. Objective Last 24 Hrs of Vital Signs/I&O Vital Signs Date Time Temp Pulse Resp B/P B/P Pulse O2 O2 Flow FiO2 Mean Ox Delivery Rate 10/03 1415 98.1 93 20 96/54 93 Room Air 10/03 0937 110 100/70 10/03 0646 98.2 110 18 100/70 94 Room Air 10/02 2235 98.6 98 18 90/60 95 Room Air 10/02 2200 Room Air /02 2200 90/60 /02 2125 100 90/60 Intake & Output 10/03 1600 10/03 0800 10/03 0000 Intake Total 50 240 Output Total 400 Balance -350 240 Intake, Oral 50 240 Output, Urine 400 Patient 165 lb Weight Weight Bed scale Measurement Method Physical Exam General Appearance: Alert, Cooperative, No Acute Distress Other Physical Findings: HEENT: Atraumatic, Mucous Membr. moist/pink Cardiovascular: Normal S1, Normal S2, irregular rate Lungs: Clear to Auscultation, Normal Air Movement Abdomen: Normal Bowel Sounds, Soft, No Tenderness Neurological: Normal Speech, Cranial Nerves 3-12 NL Extremities: No Clubbing, No Cyanosis, No Edema, Normal Pulses, No Tenderness/ Swelling Vascular: Normal Pulses, Pulses Symmetrical Current Medications: Current Medications Sig/Telly Start time Last Medication Dose Route Stop Time Status Admin Amoxicillin/ 875 MG Q12 09/29 2100 AC 10/03 Clavulanate Potassium PO 0937 Apixaban 5 MG BID 09/28 1545 AC 10/03 PO 0934 Lidocaine 1 PAT DAILY NEEDED PRN 10/02 1545 AC TOP Metoprolol Tartrate 25 MG BID 09/30 1800 AC 10/03 PO 0937 Last 24 Hrs of Lab/Bridger Results Last 24 Hrs of Labs/Mics: Laboratory Tests 10/03/17 0630: Anion Gap 7, Estimated GFR > 60, BUN/Creatinine Ratio 27.5 H, Total Bilirubin 0.6, Direct Bilirubin 0.1, AST 36, ALT 104 H, Alkaline Phosphatase 282 H, Creatine Kinase 100, Total Protein 4.9 L, Albumin 2.1 L, CBC w Diff NO MAN DIFF REQ, RBC 4.05 L, MCV 86.8, MCH 28.9, MCHC 33.3, RDW 15.2 H, MPV 8.1, Gran % 80.6 H, Lymphocytes % 10.2 L, Monocytes % 7.8, Eosinophils % 1.1, Basophils % 0.3, Absolute Granulocytes 11.1 H, Absolute Lymphocytes 1.4, Absolute Monocytes 1.1 H, Absolute Eosinophils 0.2, Absolute Basophils 0 Assessment/Plan Assessment: 87-yo F with no significant pmhx and history of reported noncompliance with doctor visits for several years was recently admitted to [facility] (09/21 -09/24) after a mechanical fall and was found to be in atrial fibrillation at that time and left AMA with incomplete treatment of beta maia and amiodarone. She returns for after being found on the floor and was convinced by family members to be evaluated for shortness of breath and decreased by mouth intake. She was found to have afib with rvr, possible pna, possible UTI, and chf. #A. fib with RVR The patient was found to be in A. fib with RVR with hypotension. Echo revealed EF 50-55% with trace pericardial effusion. She was started on heparin drip and amiodarone drip. Heparin drip was discontinued and she was started on by mouth Eliquis. IV amio was changed to oral amiodarone and then to oral digoxin due to hepatitis/abnormal LFTs. However she was found to have elevated dig levels and dig was held. Lopressor was also added for rate control. Cardiology is recommending MARIAM and DC cardioversion at this time but the patient is hesitant. Will re-address this with patient on Wednesday, 10/04. -Repeat digoxin level at 1.3 (down from 4.0) - will await cardiology recommendations prior to restarting -Continue Eliquis -cont lopressor PO. -Patient remains hesistant about MARIAM/DC Cardioversion. MARIAM and DC Cardioversion to be discussed per cardio on Wednesday. Will keep patient NPO tonight. #CHF most likely secondary to A. fib She presented with hypotension and was given 2L NS bolus. ProBNP elevated 9480. CT abd/pelvis revealed small bilateral pleural effusions with bibasilar infiltrate/atelectasis. Echo revealed EF 50-55%. No other IVF were given during admission. The patient refused any central lines or pressors and her BP remained stable in the 80s-100s systolic. -Continue holding IV fluids #Abnormal LFTs most likely secondary to hepatic congestion from CHF Initial T bili 1.3 ,AST 100, ALT 85, ALP 229. Hepatic function tests remained elevated during admission. Hepatitis panel was negative. RUQ ultrasound is negative. -LFTs trending down, RUQ ultrasound is negative, patient remains asymptomatic - continue to monitor LFTs -Avoid hepatotoxic agents #Left lower lobe effusion due to pulmonary edema ?Pneumonia WBC was initially elevated 20.8 with lactic acidosis. CXR showed persistent left basilar opacity and small pleural effusion. She was treated with unasyn and then transitioned to po augmentin. She continued to be afebrile during admisson. Strep pneumo and leigonnela urinary antigens were negative. -will dc abx after 5 days total (currently on day 4) -Continues to have borderline hypotension but patient refuses any central line pressors -f/u cultures #Recent fall with rhabdomyolysis The patient was found on floor by family. Creatinine kinase elevated at 1450 and improved with the initial fluid bolus and po fluid intake. Doppler ultrasound was negative for DVT. Xray of hip and femur negative for fracture. CK level improving -pain control for left leg pain - patient refusing pain meds -Holding fluids as patient has CHF. 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 Thyroid ab were negative. She was seen by endocrinology who thought her dysfunction was due to sick euthyroid syndrome. -She should have repeat thyroid function tests in 2-3 weeks. #Stage 2 cocyx ulcer Present on admission. Continued wound care DVT prophylaxis:eliquis Diet: heart healthy Code status: DNR DNI Problem List: 1. Atrial fibrillation with RVR 2. Weakness 3. Fall Pain Ratin Pain Location: left hip/leg pain Pain Goal: Pain 7 or less Pain Plan: patient refusing pain meds Tomorrow's Labs & Rationales: bep cbc lfts Diego MONTGOMERY,Shamika 10/03/17 1021: Attending MD Review Statement Attending Statement Attending MD Statement: examined this patient, discuss w/resident/PA/SEWER REPAIRER, agreed w/resident/PA/SEWER REPAIRER, reviewed EMR data (avail), discussed with nursing, discussed with case mgmt, reviewed images Attending Assessment/Plan: Patient is taking her medications but she is worried about his cardioversion that is likely scheduled for tomorrow. She is an 87-year-old female she hasn't seen a doctor for many years she was here in late August with new onset rapid A. fib and status post a fall. At that point she was refusing all medications, was cleared by psych to have total capacity and signed out AMA. She returned shortly thereafter to the ICU after a fall, with YAMEL, rhabdomyolysis, profound hypotension, leukocytosis and A. fib with rapid ventricular rhythm. She was stabilized in the ICU and now she is on the Eliquis and metoprolol and the plan is cardioversion because of the borderline blood pressure and rapid heart rate. I'm not sure patient will actually agree to this. For now will keep her nothing by mouth after midnight and her regular job honer will talk to her on Wednesday. We'll also put in a PT evaluation.
--- NOTE | 2017-10-03 13:29 | PN- Cardiology ---
Subjective Subjective: Doing about the same. Remains in atrial fibrillation Objective Vital Signs and I&Os Vital Signs Date Time Temp Pulse Resp B/P B/P Pulse O2 O2 Flow FiO2 Mean Ox Delivery Rate 10/03 0937 110 100/70 10/03 0646 98.2 110 18 100/70 94 Room Air /02 2235 98.6 98 18 90/60 95 Room Air 10/02 2200 Room Air 10/02 2200 90/60 10/02 2125 100 90/60 10/02 1414 97.2 83 20 98/50 97 Room Air Intake & Output 10/03 1600 10/03 0800 10/03 0000 10/02 1600 10/02 0800 10/02 0000 Intake Total 50 240 400 120 240 Output Total 400 500 200 200 Balance -350 240 -100 -80 40 Intake, Oral 50 240 400 120 240 Number 1 2 1 Bowel Movements Output, Urine 400 500 200 200 Patient 165 lb 171 lb Weight Weight Bed scale Bed scale Measurement Method Physical Exam: General Appearance: well developed/nourished, alert, awake, oriented Head: normal HEENT: Normal Neck: supple, JVP normal, carotid upstrokes normal bilaterally, no masses or thyromegaly Respiratory: chest non-tender, clear to auscultation and percussion bilaterally Cardiovascular: irregular rate/rhythm, normal S1, S2, 2/6 systolic murmur Abdomen: normal bowel sounds, soft, non-tender Extremities: normal inspection, no edema Vascular: Pulses are 2+ and equal bilaterally Neurologic: Grossly normal/nonfocal Current Medications: Current Medications Sig/Telly Start time Last Medication Dose Route Stop Time Status Admin Amoxicillin/ 875 MG Q12 09/29 2100 AC 10/03 Clavulanate Potassium PO 0937 Apixaban 5 MG BID 09/28 1545 AC 10/03 PO 0934 Lidocaine 1 PAT DAILY NEEDED PRN 10/02 1545 [facility] Metoprolol Tartrate 25 MG BID 09/30 1800 AC 10/03 PO 0937 Results Last 48 Hrs of Labs/Mics: Laboratory Tests 10/03/17 0630: Anion Gap 7, Estimated GFR > 60, BUN/Creatinine Ratio 27.5 H, Total Bilirubin 0.6, Direct Bilirubin 0.1, AST 36, ALT 104 H, Alkaline Phosphatase 282 H, Creatine Kinase 100, Total Protein 4.9 L, Albumin 2.1 L, CBC w Diff NO MAN DIFF REQ, RBC 4.05 L, MCV 86.8, MCH 28.9, MCHC 33.3, RDW 15.2 H, MPV 8.1, Gran % 80.6 H, Lymphocytes % 10.2 L, Monocytes % 7.8, Eosinophils % 1.1, Basophils % 0.3, Absolute Granulocytes 11.1 H, Absolute Lymphocytes 1.4, Absolute Monocytes 1.1 H, Absolute Eosinophils 0.2, Absolute Basophils 0 10/02/17 0640: Anion Gap 9, Estimated GFR 60, Glucose 87, Calcium 7.9 L, Phosphorus 3.0, Magnesium 1.9, Total Bilirubin 0.7, Direct Bilirubin 0.3, AST 66 H, ALT 117 H, Alkaline Phosphatase 313 H, Creatine Kinase 201 H, Total Protein 4.8 L, Albumin 2.0 L, CBC w Diff NO MAN DIFF REQ, RBC 3.77 L, MCV 85.6, MCH 29.2, MCHC 34.1, RDW 14.4, MPV 8.2, Gran % 85.3 H, Lymphocytes % 8.2 L, Monocytes % 5.9, Eosinophils % 0.6, Basophils % 0, Absolute Granulocytes 11.4 H, Absolute Lymphocytes 1.1 L, Absolute Monocytes 0.8 H, Absolute Eosinophils 0.1, Absolute Basophils 0, Digoxin 1.3 Assessment/Plan Assessment/Plan Assessment: 1. Atrial fibrillation with elevated rate and relatively low blood pressure 2. History of HFpEF 3. Elevated liver function tests-improving 4. Pleural effusion 5. History of fall with rhabdomyolysis-CPK improving 6. Mild anemia Recommendations: -Keep patient on surveillance monitor -Continue current cardiac medications -Follow-up labs pending -Please keep the patient n.p.o. after midnight Wednesday in case there are any plans for possible MARIAM/cardioversion on Wednesday. Continue telemetry? Yes
[2017-10-03 14:15] VITALS: BP 96/54
[2017-10-03 22:13] VITALS: BP 92/64
[2017-10-04 06:53] VITALS: BP 92/62
--- NOTE | 2017-10-04 07:53 | PN- Housestaff ---
Miriam MONTGOMERY,Shawna 10/04/17 0753: Subjective Follow-up For: Amadou CHF Abnormal LFTs Left hip pain 2/2 arthritis Tele-Events Since Last Visit: Amadou 80s to 110 Subjective: Patient was seen and examined today. Reports continued left hip pain. Patient states she feels overwhelmed by everything and would like to hold off on working with physical therapy today. Patient is refusing any oral pain medication. Has agreed to try lidocaine patch today. No acute events overnight. Patient went down for cardioversion today. Cardiology reported suspicion of thrombus on MARIAM, therefore no cardioversion was performed. Review of Systems Constitutional: Reports: see HPI. Objective Last 24 Hrs of Vital Signs/I&O Vital Signs Date Time Temp Pulse Resp B/P B/P Pulse O2 O2 Flow FiO2 Mean Ox Delivery Rate 10/04 0746 119 94/60 10/04 0653 98.7 96 20 92/62 93 Room Air 10/03 2213 99.0 93 20 92/64 92 Room Air 10/03 1415 98.1 93 20 96/54 93 Room Air 10/03 0937 110 100/70 Intake & Output 10/04 0800 10/04 0000 10/03 1600 Intake Total 500 Output Total 350 400 Balance -350 100 Intake, Oral 500 Output, Urine 350 400 Patient 166 lb Weight Weight Bed scale Measurement Method Physical Exam General Appearance: Alert, Cooperative, No Acute Distress HEENT: Atraumatic, Mucous Membr. moist/pink Cardiovascular: Normal S1, Normal S2, irregular rate Lungs: Clear to Auscultation, Normal Air Movement Abdomen: Normal Bowel Sounds, Soft, No Tenderness Extremities: No Clubbing, No Cyanosis, No Edema, Normal Pulses, No Tenderness/ Swelling, unable to assess ROM due to pain - patient relunctant to move Vascular: Normal Pulses, Pulses Symmetrical Current Medications: Current Medications Sig/Telly Start time Last Medication Dose Route Stop Time Status Admin Amoxicillin/ 875 MG Q12 09/29 2100 DC 10/03 Clavulanate Potassium PO 0937 Apixaban 5 MG BID 09/28 1545 AC 10/04 PO 0746 Lidocaine 1 PAT DAILY NEEDED PRN 10/02 1545 AC TOP Metoprolol Tartrate 25 MG BID 09/30 1800 AC 10/04 PO 0746 Last 24 Hrs of Lab/Bridger Results Last 24 Hrs of Labs/Mics: Laboratory Tests 06/04/18 0625: Anion Gap 6, Estimated GFR > 60, BUN/Creatinine Ratio 22.5, Total Bilirubin 0.7, Direct Bilirubin 0.2, AST 52 H, ALT 112 H, Alkaline Phosphatase 265 H, Total Protein 4.8 L, Albumin 2.0 L, CBC w Diff Pending, WBC Pending, RBC Pending, Hgb Pending, Hct Pending, MCV Pending, MCH Pending, MCHC Pending, RDW Pending, Plt Count Pending, MPV Pending Assessment/Plan Assessment: 87-yo F with no significant pmhx and history of reported noncompliance with doctor visits for several years was recently admitted to [facility] (09/21 -09/24) after a mechanical fall and was found to be in atrial fibrillation at that time and left AMA with incomplete treatment of beta maia and amiodarone. She returns for after being found on the floor and was convinced by family members to be evaluated for shortness of breath and decreased by mouth intake. She was found to have afib with rvr, possible pna, possible UTI, and chf. #A. fib with RVR The patient was found to be in A. fib with RVR with hypotension. Echo revealed EF 50-55% with trace pericardial effusion. She was started on heparin drip and amiodarone drip. Heparin drip was discontinued and she was started on by mouth Eliquis. IV amio was changed to oral amiodarone and then to oral digoxin due to hepatitis/abnormal LFTs. However she was found to have elevated dig levels and dig was held. Lopressor was also added for rate control. MARIAM performed today- suspicion of thrombus. Cardioversion was held. Patient will require 3-4 weeks of anticoagulation. Further recommendations per cardiology -Continue Eliquis -cont lopressor PO. -S/P MARIAM - continue anticoagulation #CHF most likely secondary to A. fib She presented with hypotension and was given 2L NS bolus. ProBNP elevated 9480. CT abd/pelvis revealed small bilateral pleural effusions with bibasilar infiltrate/atelectasis. Echo revealed EF 50-55%. No other IVF were given during admission. The patient refused any central lines or pressors and her BP remained stable in the 80s-100s systolic. -Continue holding IV fluids #Abnormal LFTs most likely secondary to hepatic congestion from CHF Initial T bili 1.3 ,AST 100, ALT 85, ALP 229. Hepatic function tests remained elevated during admission. Hepatitis panel was negative. RUQ ultrasound is negative. -LFTs trending down, RUQ ultrasound is negative, patient remains asymptomatic - continue to monitor LFTs -Avoid hepatotoxic agents #Left lower lobe effusion due to pulmonary edema ?Pneumonia WBC was initially elevated 20.8 with lactic acidosis. CXR showed persistent left basilar opacity and small pleural effusion. She was treated with unasyn and then transitioned to po augmentin. She continued to be afebrile during admisson. Strep pneumo and leigonnela urinary antigens were negative. -will discontinue antibiotics, although patient continues to have a mild leukocytosis, she remains afebrile with no respiratory complaints and has completed a week of antibiotics -Continues to have borderline hypotension but patient refuses any central line pressors -f/u cultures #Recent fall with rhabdomyolysis The patient was found on floor by family. Creatinine kinase elevated at 1450 and improved with the initial fluid bolus and po fluid intake. Doppler ultrasound was negative for DVT. Xray of hip and femur negative for fracture. CK level improved. -pain control for left leg pain - patient refusing pain meds. Was able to convince patient today to try a lidocaine patch. Patient is currently resistant to tylenol which would be beneficial with her signficant arthritic pain -Holding fluids as patient has CHF. 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 Thyroid ab were negative. She was seen by endocrinology who thought her dysfunction was due to sick euthyroid syndrome. -She should have repeat thyroid function tests in 2-3 weeks. #Stage 2 cocyx ulcer Present on admission. Continued wound care DVT prophylaxis:eliquis Diet: heart healthy Code status: DNR DNI Problem List: 1. Atrial fibrillation with RVR 2. Weakness Pain Ratin Pain Location: left hip Pain Goal: Pain 7 or less Pain Plan: lidocaine patches - patient currently refusing any other pain medication Tomorrow's Labs & Rationales: cbc - monitor wbc bep lfts Garrett Patten MD 10/04/17 1822: Attending MD Review Statement Attending Statement Attending MD Statement: examined this patient, discuss w/resident/PA/BANKMAN, agreed w/resident/PA/BANKMAN, reviewed EMR data (avail) Attending Assessment/Plan: 87F admitted for fall, found to be in rapid atrial fibrillation with hypotension requiring ICU admission, initially on Amiodarone and heparin drips, improved and now on Metoprolol and Eliquis, course complicare by aspiration pneumonia now on Augmentin. Patient has no complaints today. Underwent MARIAM but was unable to cardiovert due to signs of thrombus. Patient endorses that she will likely be non-compliant with medications once discharged. She understands risks and benefits and has insight. 1. Rapid atrial fibrillation 2. Hypotension 3. Aspiration pneumonia b/l lower lobes Plan - Continue on telemetry - Metoprolol and Eliquis - Augmentin to complete 7 day course - Cardiology recommendations - DVT PPx
[2017-10-04 08:06] LABS: ABSOLUTE BASOPHIL COUNT 0 /CUMM (0.0-0.2); ABSOLUTE EOSINOPHIL COUNT 0.1 /CUMM (0.0-0.7); ABSOLUTE GRANULOCYTE CT 10.7 /CUMM (1.4-6.5); ABSOLUTE LYMPH COUNT 1.5 /CUMM (1.2-3.4); ABSOLUTE MONOCYTE COUNT 1.1 /CUMM (0.10-0.60); BASOPHIL % 0.2 % (0.0-2.0); EOSINOPHIL % 0.9 % (0-5); GRANULOCYTE % 80.1 % (42.2-75.2); HEMATOCRIT 35.4 % (37-47); MEAN CORPUSCULAR HGB 28.8 PG (27.0-31.0); MEAN CORPUSCULAR HGB CONC 33.2 G/DL (33.0-37.0); MEAN CORPUSCULAR VOLUME 86.9 FL (81.0-99.0); MEAN PLATELET VOLUME 8.1 FL (7.4-10.4); PLATELET COUNT 436 /CUMM (130-400); RBC DISTRIBUTION WIDTH 14.9 % (11.5-14.5); RED BLOOD CELL CT 4.07 /CUMM (4.20-5.40); WHITE BLOOD CELL COUNT 13.3 /CUMM (4.8-10.8)
--- NOTE | 2017-10-04 11:08 | PN- Student ---
Subjective Subjective: No overnight events reported. Ms. Thayer did report continued hip pain, particularly on the left side when moving. She does not have pain at rest but increases to 10/10 when moving. She did express some concern regarding MARIAM cardioversion, however after discussing the potential benefits she did seem more open to the procedure. Objective Objective: Current Medications Sig/Telly Start time Last Medication Dose Route Stop Time Status Admin Amoxicillin/ 875 MG Q12 10/04 0930 AC Clavulanate Potassium PO Amoxicillin/ 875 MG Q12 09/29 2100 DC 10/03 Clavulanate Potassium PO 0937 Apixaban 5 MG BID 09/28 1545 AC 10/04 PO 0746 Lidocaine 0 .STK-MED ONE 10/04 1024 DC TOP Lidocaine 1 PAT DAILY NEEDED PRN 10/02 1545 AC TOP Metoprolol Tartrate 25 MG BID 09/30 1800 AC 10/04 PO 0746 Laboratory Tests 10/04 06 Chemistry Sodium (137 - 145 mmol/L) 136 L Potassium (3.5 - 5.1 mmol/L) 4.1 Chloride (98 - 107 mmol/L) 103 Carbon Dioxide (22 - 30 mmol/L) 26 Anion Gap (5 - 16) 6 BUN (7 - 17 mg/dL) 18 H Creatinine (0.5 - 1.0 mg/dL) 0.8 Estimated GFR (>60 ml/min) > 60 BUN/Creatinine Ratio (7 - 25 %) 22.5 Total Bilirubin (0.2 - 1.3 mg/dL) 0.7 Direct Bilirubin (< 0.4 mg/dL) 0.2 AST (14 - 36 U/L) 52 H ALT (9 - 52 U/L) 112 H Alkaline Phosphatase (<127 U/L) 265 H Total Protein (6.3 - 8.2 g/dL) 4.8 L Albumin (3.5 - 5.0 g/dL) 2.0 L Hematology CBC w Diff NO MAN DIFF REQ WBC (4.8 - 10.8 /CUMM) 13.3 H RBC (4.20 - 5.40 /CUMM) 4.07 L Hgb (12.0 - 16.0 G/DL) 11.7 L Hct (37 - 47 %) 35.4 L MCV (81.0 - 99.0 FL) 86.9 MCH (27.0 - 31.0 PG) 28.8 MCHC (33.0 - 37.0 G/DL) 33.2 RDW (11.5 - 14.5 %) 14.9 H Plt Count (130 - 400 /CUMM) 436 H MPV (7.4 - 10.4 FL) 8.1 Gran % (42.2 - 75.2 %) 80.1 H Lymphocytes % (20.5 - 51.1 %) 10.9 L Monocytes % (1.7 - 9.3 %) 7.9 Eosinophils % (0 - 5 %) 0.9 Basophils % (0.0 - 2.0 %) 0.2 Absolute Granulocytes (1.4 - 6.5 /CUMM) 10.7 H Absolute Lymphocytes (1.2 - 3.4 /CUMM) 1.5 Absolute Monocytes (0.10 - 0.60 /CUMM) 1.1 H Absolute Eosinophils (0.0 - 0.7 /CUMM) 0.1 Absolute Basophils (0.0 - 0.2 /CUMM) 0 Vital Signs Date Time Temp Pulse Resp B/P B/P Pulse O2 O2 Flow FiO2 Mean Ox Delivery Rate / 0746 119 94/60 /04 0653 98.7 96 20 92/62 93 Room Air / 2230 82 90/64 06/03 2213 99.0 93 20 92/64 92 Room Air 06/ 1415 98.1 93 20 96/54 93 Room Air Intake & Output / 1600 /04 0800 06/04 0000 Intake Total 100 Output Total 375 350 Balance -275 -350 Intake, Oral 100 Output, Urine 375 350 Patient 166 lb Weight Weight Bed scale Measurement Method Physical Exam: Gen apperance: no evidence of acute distress, AOx3, resting comfortably in bed CV: irregularlly irregular rate and rhythm, normal S1 & S2, no MRG Pulm: posterior lung griffiths clear to ausculatation, no wheeze, ronchi, rales or rub Abd: normal bowel sounds, soft, non-tender Extremities: no evidence of peripheral edema, large ecchymosis present on left upper extremity Assessment/Plan Assessment: Ms. Thayer is an 87 year old female with a PMHx significant for hypothyroidism and osteoarthritis who presents to the hospital due to a fall at home. She had recently been hospitalized at [facility] on 09/21/17 and signed out AMA on 09/24/17 also after a fall and having been found to be in atrial fibrilation. Upon readmission to the hospital on 09/28/17 she again was found to be in a fib with rvr, a possible pneumonia and UTI and CHF. She has been evaluated by cardiology and continues to be followed on telemetry after transfer from the ICU on 10/01/17. Plan: Problem List: 1. A. fib with RVR 2. CHF 3. Left lower lobe effusion 4. Rhabdomyolysis secondary to fall 5. Abnormal LFTs 6. Stage 2 cocyx ulcer 7. Chronic medical conditions #A. fib with RVR: Patient continues to be in a. fib. Echo performed on 09/29/17 shows an EF of 50-55%. Patient is on Apixaban currently, after previously being initially being on heparin when first admited. She also had previously been on an Amiodorone IV drip, then PO and then Digoxin, however Dig levels were elevated at 4.0 and is currently being witheld. Upon repeat testing her current dig level is 1.3. She is currently on Metoprolol for rate control. She will possibly undergo cardioversion via MARIAM today with cardiology. She has been NPO since midnight last night. -continue telemetry -continue metoprolol and apixaban -MARIAM to be done today with possible cardioversion #CHF: this is likely due to the patient's a.fib with RVR leading to decreased cardiac output. Although EF is within a normal range the patient's arrythmia and rapid heart rate most likely contributed to pulmonary congestion and hepatic congestion also contributing to abnormal LFTs. Serial Troponin levels were negative for acute NH. However pro-BNP level was elevated at 9480 supporting CHF due to current a. fib with rapid ventricular rate. Metoprolol is currently being used to help control the patient's rate, as well as witholding IV fluids to prevent overload. -continue to hold IV fluids -continue metoprolol -MARIAM to be done today with possible cardioversion #Left lower lobe effusion: Chest X-Ray on 09/29/17 revealed left basilar opacity and small pleural effusion. Patient did present with dyspnea, however does not currently report any difficulty breathing or shortness of breath. Patient has been afebrile, however CBC reveals leukocytosis. Augmentin 875 mg Q12 PO was started today as the patient has already recieved IV unasyn at time of admission for possible lung infection. -Continue PO Augmentin for one more day -watch for signs of infection #Rhabdomyolysis secondary to fall: Recovering, patient had elevated CK at 1450 upon admission and has subsquently down trended. Current CK is at 100 and will continue to monitor. Patient continues to report joint pains consistent with her history of OA. Previous x-ray and doppler studies have shown no acute fracture or DVT. Patient has previously refused pain medication. -Lidocaine topical patch for left hip pain -continue to monitor CK -PT evaluation #Abnormal LFTs: AST, ALT and ALK phos have continued to be elevated throughout admission. Patient is not reporting any RUQ pain, and hepatitis panel is negative. This is likely secondary to hepatic congestion due to heart failure from patient being in a. fib. -continue to follow LFTs -MARIAM with possible cardioversion to be performed today #Stage 2 cocyx ulcer: Present at the time of admission. -Continue wound protocol and keep clean and dry. -Continue to watch for signs of infection. -Maintain pressure ulcer protocol to prevent further ulcers/worsening of current ulcer #Chronic medical conditions -OA: patient refusing pain medications, lidocaine patches for left hip pain, PT eval -continue all medication as prescribed DVT ppx: Eliquis Heart healthy diet DNR/DNI
[2017-10-04 14:49] VITALS: BP 94/54
--- NOTE | 2017-10-04 17:43 | PN- Cardiology ---
Subjective Subjective: * Patient continues to complain of left hip pain. * atrial fibrillation with conrolled heart rate. * This patient is felt to be at increased risk of stroke if cardioverted based on her MARIAM results. * improved LFT's Objective Vital Signs and I&Os Vital Signs Date Time Temp Pulse Resp B/P B/P Pulse O2 O2 Flow FiO2 Mean Ox Delivery Rate 10/04 1449 97.4 82 18 94/54 94 Room Air 10/04 0746 119 94/60 10/04 0653 98.7 96 20 92/62 93 Room Air 10/03 2230 82 90/64 10/03 2213 99.0 93 20 92/64 92 Room Air Intake & Output 10/04 1600 10/04 0800 10/04 0000 10/03 1600 10/03 0800 10/03 0000 Intake Total 240 100 500 50 240 Output Total 375 350 400 400 Balance 240 -275 -350 100 -350 240 Intake, Oral 240 100 500 50 240 Output, Urine 375 350 400 400 Patient 166 lb 165 lb Weight Weight Bed scale Bed scale Measurement Method Physical Exam: General: WD/WN female in NAD; alert and oriented x 3 HEENT: NC/AT, PERRL, EOMI Neck: no JVD, no carotid bruit Heart: irregularly irregular with 2/6 systolic murmur Lungs: clear bilaterally ABdomen: soft, NT, +ve bowel sounds Extremities: 1+ left LE edema Assessment/Plan Assessment/Plan * This patient has improved blood pressure. Hypotension upon admission may have been due to sepsis considering her initial elevated serum lactate level and persistent increase in WBC count. She reports that her baseline blood pressure is always low. Atrial fibrillation may also be a contributor although her heart rate was not severely elevated and, as such, should not result in severe hemodynamic compromise. Her EF on a recent echocardiogram by Dr. Mccarthy and was normal and I find on repeat echo that it is in the low normal range. There is no pulmonary hypertension. * This patient was on Amiodarone which has been discontinued due to concern that it was raising her hepatic transaminases. Her LFT's are improving off this medications. Amiodarone was initially started in the setting of hemodynamic instability for atrial fibrillation. At this point in time, since more stable, I would not be inclined to utilize a drug or DC cardioversion unless for rate control but has not proved very effective and now appears to be associated unless we confirmed the absence of intracardiac thrombus via a MARIAM. Some smoke indicative of slow blood flow and possible thrombus was noted on her MARIAM. We will allow adequate anticoagulation for three weeks prior to elective cardioversion. * Digoxin stopped due to an elevated level of this medication. This was in combination with Amiodarone. We will begin digoxin at 0.125mg every other day beginning tomorrow. Continue Eliquis 5mg BID. Continue telemetry? Yes
[2017-10-04] MEDS ORDERED: ELIQUIS5 M1 PO (18:42)
[2017-10-04] MEDS ORDERED: LIDODERM1 EACH TOP (18:42)
[2017-10-04] MEDS ORDERED: METOPROLOL TART25 M1 PO (18:42)
--- NOTE | 2017-10-04 18:47 | Patient Discharge Instructions ---
Discharge Instructions General Discharge Information You were seen/treated for: Atrial Fibrillation Pneumonia You had these procedures: Transesophageal Echocardiogram Special Instructions: -Please follow up with your primary care physician within 1 week of discharge. -You have been provided a referral to orthopedics please follow-up as an outpatient -you will need cardioversion to normalize rhythm of the heart but for that you have to be on blood thinner for 3 weeks. -Follow-up with senior unix administrator within 1 week of discharge, a referral has been provided. -Please get Blood work done on 10/08/2017 and follow up with your primary care doctor regarding results -You will need repeat thyroid function tests in 2-3 weeks. Diet Continue normal diet: No Recommended Diet: Heart Healthy Activity Full Activity/No Limits: No Activity Self Limited: Yes Acute Coronary Syndrome Inclusion Criteria At DC or during hospital stay patient has or had the following: ACS DIAGNOSIS No Discharge Core Measures Meds if any: Prescribed or Continued at Discharge Meds if any: NOT Prescribed or Continued at Discharge Congestive Heart Failure Inclusion Criteria At DC or during hospital stay patient has or had the following: CHF DIAGNOSIS No Discharge Core Measures Meds if any: Prescribed or Continued at Discharge Meds if any: NOT Prescribed or Continued at Discharge Cerebrovascular accident Inclusion Criteria At DC or during hospital stay patient has or had the following: CVA/TIA Diagnosis No Discharge Core Measures Meds if any: Prescribed or Continued at Discharge Meds if any: NOT Prescribed or Continued at Discharge Venous thromboembolism Inclusion Criteria VTE Diagnosis No VTE Type NONE VTE Confirmed by (Test) NONE Discharge Core Measures - Per Current guidelines, there needs to be overlap - treatment for the first 5 days of Warfarin therapy. - If discharged on Warfarin prior to 5 days of - overlap therapy, the patient will need to be - assessed for post discharge needs including - *Post discharge parental anticoagulation - *Warfarin and/or parental anticoagulation education - *Follow up date to check INR post discharge At least 5 days overlap therapy as Inpatient No Meds if any: Prescribed or Continued at Discharge Note: Overlap Therapy is Warfarin and Anticoagulant Meds if any: NOT Prescribed or Continued at Discharge
--- NOTE | 2017-10-04 19:40 | ECHOCARDIOGRAM REPORT ---
ALLI MUNOZ Age: 87 : Gender: F Exam Date: 10/04/2017 11:03 Exam Location: [address] Ht (in): 65 Wt (lb): 145 BSA: 1.75 BP: 94 / 60 Ordering Physician: Malik Martini MD Referring Physician: Malik Martini MD Technologist: Atul Crowley [facility] Room Number: 179-2 Indications: AFIB/FLUTTER Rhythm: Atrial fibrillation Technical Quality: Good Medications TIVA Ease of Transducer Insertion No Difficulty Complications None. Technical Difficulty Eve. FINDINGS Left Ventricle Normal size left ventricle. Mild concentric left ventricular hypertrophy. No obvious regional wall motion abnormalities. Borderline normal left ventricular ejection fraction estimated at 50-55%. Spontaneous contrast seen in the left ventricle. Right Ventricle Normal right ventricular size and function. Spontaneous contrast seen in the right ventricle. Right Atrium Normal right atrial size. Mild spontaneous contrast in the right atrial cavity. Left Atrium Normal left atrial size. Mild spontaneous echo contrast seen in the left atrium. LA Appendage Normal size left atrial appendage. Spontaneous echo contrast seen in the left atrial appendage. Cannot exclude thrombus in the distal left atrial appendage. IA Septum Agitated saline ("bubble") study revealed some right to left shunt consistent with a patent foramen ovale. Mitral Valve Mildly thickened mitral valve. Mild mitral regurgitation (2 jets). Aortic Valve Trileaflet aortic valve. Diffuse mild thickening (sclerosis) of the aortic valve cusps without reduced excursion. Trace aortic regurgitation. Tricuspid Valve Structurally normal tricuspid valve. Mild to moderate tricuspid regurgitation. Pulmonic Valve Pulmonic valve not well visualized, grossly normal. Mild pulmonic regurgitation. Pericardium Small pericardial effusion. Great Vessels Normal size aortic root. Spontaneous contrast noted in descending thoracic aorta. CONCLUSIONS Normal size left ventricle. Mild concentric left ventricular hypertrophy. Borderline normal left ventricular ejection fraction estimated at 50-55%. Spontaneous contrast seen in the left ventricle. Normal right ventricular size and function. Spontaneous contrast seen in the right ventricle. Normal right atrial size. Mild spontaneous contrast in the right atrial cavity. Normal left atrial size. Mild spontaneous echo contrast seen in the left atrium. Normal size left atrial appendage. Spontaneous echo contrast seen in the left atrial appendage. Cannot exclude thrombus in the distal left atrial appendage. Agitated saline ("bubble") study revealed some right to left shunt consistent with a patent foramen ovale. Mild mitral regurgitation (2 jets). Trace aortic regurgitation. Mild to moderate tricuspid regurgitation. Mild pulmonic regurgitation. Small pericardial effusion. Spontaneous contrast noted in descending thoracic aorta. Yanick Mccarthy M.D. (Electronically Signed) Final Date: 04 October 2017 19:40 MEASUREMENTS (Male / Female) Normal Values
[2017-10-04 22:17] VITALS: BP 92/54
[2017-10-05 06:58] VITALS: BP 94/60
[2017-10-05 08:03] LABS: ABSOLUTE BASOPHIL COUNT 0.1 /CUMM (0.0-0.2); ABSOLUTE EOSINOPHIL COUNT 0.1 /CUMM (0.0-0.7); ABSOLUTE GRANULOCYTE CT 11.1 /CUMM (1.4-6.5); ABSOLUTE LYMPH COUNT 1.3 /CUMM (1.2-3.4); ABSOLUTE MONOCYTE COUNT 0.9 /CUMM (0.10-0.60); BASOPHIL % 0.4 % (0.0-2.0); EOSINOPHIL % 0.9 % (0-5); GRANULOCYTE % 82.4 % (42.2-75.2); HEMATOCRIT 35.5 % (37-47); MEAN CORPUSCULAR HGB 28.8 PG (27.0-31.0); MEAN CORPUSCULAR HGB CONC 33.6 G/DL (33.0-37.0); MEAN CORPUSCULAR VOLUME 85.7 FL (81.0-99.0); MEAN PLATELET VOLUME 7.9 FL (7.4-10.4); PLATELET COUNT 427 /CUMM (130-400); RBC DISTRIBUTION WIDTH 15.4 % (11.5-14.5); RED BLOOD CELL CT 4.15 /CUMM (4.20-5.40); WHITE BLOOD CELL COUNT 13.5 /CUMM (4.8-10.8)
--- NOTE | 2017-10-05 08:08 | PN- Housestaff ---
Simone MONTGOMERY,Elsa 10/05/17 0808: Subjective Follow-up For: Amadou CHF Abnormal LFTs Left hip pain 2/2 arthritis Tele-Events Since Last Visit: Afibrillation with heart rate ranging 80s. 100s Subjective: Patient seen and examined. She was resting comfortably. In the morning she was complaining of left hip pain. However patient declined to work with physical therapy yesterday. Today patient was seen later with whole team and patient's granddaughter was present as well. Patient was extensively counseled to work with physical therapy today. She continues to decline pain medication however was convinced to try tylenol Review of Systems Constitutional: Reports: see HPI. Objective Last 24 Hrs of Vital Signs/I&O Vital Signs Date Time Temp Pulse Resp B/P B/P Pulse O2 O2 Flow FiO2 Mean Ox Delivery Rate 10/06 0739 98.5 157 20 94/60 10/05 0839 98.5 157 20 94/60 06/05 0658 98.5 108 20 94/60 93 Room Air 10/04 2217 98.6 94 18 92/54 93 Room Air / 2050 103 88/52 / 1449 97.4 82 18 94/54 94 Room Air Intake & Output 10/05 1600 05 0800 10/05 0000 Intake Total 240 480 Output Total 850 Balance -610 480 Intake, Oral 240 480 Number 0 Bowel Movements Output, Urine 850 Patient 169 lb Weight Weight Bed scale Measurement Method Physical Exam General Appearance: Alert, Oriented X3, Cooperative Cardiovascular: Normal S1, Normal S2, irregular Lungs: Clear to Auscultation, Normal Air Movement Abdomen: Normal Bowel Sounds, Soft Neurological: Normal Speech Extremities: No Edema Current Medications: Current Medications Sig/Telly Start time Last Medication Dose Route Stop Time Status Admin Acetaminophen 500 MG BID 10/05 1000 AC PO Amoxicillin/ 875 MG Q12 10/04 0930 DC 10/04 Clavulanate Potassium PO 1339 Apixaban 5 MG BID 09/28 1545 AC 10/05 PO 0839 Digoxin 0.125 MG Q48 10/05 0900 AC 10/05 PO 0839 Lidocaine 1 PAT DAILY NEEDED PRN 10/02 1545 AC 10/04 TOP 1649 Metoprolol Tartrate 25 MG BID 09/30 1800 AC 10/05 PO 0839 Last 24 Hrs of Lab/Bridger Results Last 24 Hrs of Labs/Mics: Laboratory Tests 10/05/17 0630: Anion Gap 8, Estimated GFR > 60, BUN/Creatinine Ratio 22.9, Total Bilirubin 0.7, Direct Bilirubin 0.3, AST 33, ALT 84 H, Alkaline Phosphatase 240 H, Total Protein 5.0 L, Albumin 2.1 L, CBC w Diff NO MAN DIFF REQ, RBC 4.15 L, MCV 85.7, MCH 28.8, MCHC 33.6, RDW 15.4 H, MPV 7.9, Gran % 82.4 H, Lymphocytes % 9.7 L, Monocytes % 6.6, Eosinophils % 0.9, Basophils % 0.4, Absolute Granulocytes 11.1 H, Absolute Lymphocytes 1.3, Absolute Monocytes 0.9 H, Absolute Eosinophils 0.1, Absolute Basophils 0.1 Assessment/Plan Assessment: 87-yo F with no significant pmhx and history of reported noncompliance with doctor visits for several years was recently admitted to [facility] (09/21 -09/24) after a mechanical fall and was found to be in atrial fibrillation at that time and left AMA with incomplete treatment of beta maia and amiodarone. She returned after being found on the floor and was convinced by family members to be evaluated for shortness of breath and decreased by mouth intake. She was found to have afib with rvr, possible pna, possible UTI, and chf. #A. fib with RVR The patient was found to be in A. fib with RVR with hypotension. Echo revealed EF 50-55% with trace pericardial effusion. She was started on heparin drip and amiodarone drip. Heparin drip was discontinued and she was started on by mouth Eliquis. IV amio was changed to oral amiodarone and then to oral digoxin due to hepatitis/abnormal LFTs. However she was found to have elevated dig levels and dig was held. Lopressor was also added for rate control. A MARIAM cardioversion was attempted yesterday but the MARIAM showed a suspicion of a thrombus so no cardioversion was done. For now we are going to continue the patient on Lopressor, Eliquis and digoxin every other day as per cardiology recommendation #CHF most likely secondary to A. fib She presented with hypotension and was given 2L NS bolus. ProBNP elevated 9480. CT abd/pelvis revealed small bilateral pleural effusions with bibasilar infiltrate/atelectasis. Echo revealed EF 50-55%. No other IVF were given during admission. The patient refused any central lines or pressors and her BP remained stable in the 80s-100s systolic. #Abnormal LFTs most likely secondary to hepatic congestion from CHF Initial T bili 1.3 ,AST 100, ALT 85, ALP 229. Hepatic function tests remained elevated during admission. Hepatitis panel was negative. RUQ ultrasound is negative. Patient remains asymptomatic. Avoid hepatotoxins #Left lower lobe effusion due to pulmonary edema ?Pneumonia WBC was initially elevated 20.8 with lactic acidosis. CXR showed persistent left basilar opacity and small pleural effusion. She was treated with unasyn and then transitioned to po augmentin. She continued to be afebrile during admisson. Strep pneumo and leigonnela urinary antigens were negative. Patient has completed 5 days of antibiotic treatment for suspicion of pneumonia. #Recent fall with rhabdomyolysis The patient was found on floor by family. Creatinine kinase elevated at 1450 and improved with the initial fluid bolus and po fluid intake. Doppler ultrasound was negative for DVT. Xray of hip and femur negative for fracture. CK level improving. She has been constantly refusing physical therapy however convinced to try today. 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 Thyroid ab were negative. She was seen by endocrinology who thought her dysfunction was due to sick euthyroid syndrome. -She should have repeat thyroid function tests in 2-3 weeks. #Stage 2 cocyx ulcer Present on admission. Continued wound care #Persistent leukocytosis Patient's white cell count continuously elevated. Has completed 5 days of treatment for pneumonia. Remains afebrile without any obvious source of infection. Blood pressure running on the low range but this is where she has been for past few days. There Continue to monitor off antibiotics for now DNR/DNI/DVT prophylaxis with Eliquis/heart healthy diet Problem List: 1. Fall Pain Ratin Pain Location: left hip Pain Goal: Pain 4 or less Pain Plan: prn Tomorrow's Labs & Rationales: cbc lfts Shamika Cortez MD 10/05/17 1058: Attending MD Review Statement Attending Statement Attending MD Statement: examined this patient, discuss w/resident/PA/G[employer] SET UP OPERATOR, discussed with family, reviewed EMR data (avail), discussed with nursing, discussed with case mgmt, reviewed images Attending Assessment/Plan: Patient was seen with the entire team including the patient's granddaughter who is an EMT who was there for the conversation. She is an 87-year-old female known to me from her previous admission. She was in new onset atrial fibrillation and status post fall then and refused all medications, was cleared by psych for capacity and left AMA. She returned after being found on the floor and was in the ICU where she was treated for rapid A. fib, hypotension and hypovolemia, rhabdomyolysis and a pneumonia. The issue now is that her heart rate continues to be very rapid with a borderline blood pressure. A MARIAM cardioversion was attempted yesterday but the MARIAM showed a suspicion of a thrombus so no cardioversion was done. She is on metoprolol and now dig has been added for rate control. She is also refusing to work with physical therapy. She complains of pain in her left lower extremity, she doesn't want to take pain medications but I convinced her to take Tylenol [id number]. The imaging was negative for a fracture. The issue is going to be that the patient is very adamant that she doesn't want to take any medications on discharge so this is going to be a problem as the rapid heart rate with atrial fibrillation will continue to be an issue.
--- NOTE | 2017-10-05 13:12 | PN- Cardiology ---
Subjective Subjective: * Patient continues to complain of left hip discomfort. * atrial fibrillation with slightly increased heart rate * Improved LFT's Objective Vital Signs and I&Os Vital Signs Date Time Temp Pulse Resp B/P B/P Pulse O2 O2 Flow FiO2 Mean Ox Delivery Rate 10/06 0739 98.5 157 20 94/60 / 0839 98.5 157 20 94/60 06/05 0658 98.5 108 20 94/60 93 Room Air 10/04 2217 98.6 94 18 92/54 93 Room Air 10/04 2050 103 88/52 / 1449 97.4 82 18 94/54 94 Room Air Intake & Output 10/05 1600 10/05 0800 10/05 0000 10/04 1600 10/04 0800 10/04 0000 Intake Total 240 480 240 100 Output Total 850 375 350 Balance -610 480 240 -275 -350 Intake, Oral 240 480 240 100 Number 0 Bowel Movements Output, Urine 850 375 350 Patient 169 lb 166 lb Weight Weight Bed scale Bed scale Measurement Method Physical Exam: General: WD/WN female in NAD; alert and oriented x 3 HEENT: NC/AT, PERRL, EOMI Neck: no JVD, no carotid bruit Heart: irregularly irregular with 2/6 systolic murmur Lungs: clear bilaterally ABdomen: soft, NT, +ve bowel sounds Extremities: 1+ left LE edema Assessment/Plan Assessment/Plan * This patient has improved blood pressure. Hypotension upon admission may have been due to sepsis considering her initial elevated serum lactate level and persistent increase in WBC count. She reports that her baseline blood pressure is always low. Atrial fibrillation may also be a contributor although her heart rate was not severely elevated and, as such, should not result in severe hemodynamic compromise. Her EF on a recent echocardiogram by Dr. Mccarthy and was normal and I find on repeat echo that it is in the low normal range. There is no pulmonary hypertension. * This patient was on Amiodarone which has been discontinued due to concern that it was raising her hepatic transaminases. Her LFT's are improving off this medications. Amiodarone was initially started in the setting of hemodynamic instability for atrial fibrillation. At this point in time, since more stable, I would not be inclined to utilize a drug or DC cardioversion unless for rate control but has not proved very effective and now appears to be associated unless we confirmed the absence of intracardiac thrombus via a MARIAM. Some smoke indicative of slow blood flow and possible thrombus was noted on her MARIAM. We will allow adequate anticoagulation for three weeks prior to elective cardioversion. * Digoxin stopped due to an elevated level of this medication. This was in combination with Amiodarone which has been stopped. Continue digoxin at 0.125mg every other day. Continue Eliquis 5mg BID. Continue telemetry? Yes
[2017-10-05 14:04] VITALS: BP 98/58
[2017-10-05 21:42] VITALS: BP 88/58
[2017-10-06] VITALS (7 sets, daily range): BP systolic 80–90; BP diastolic 0–60
[2017-10-06 08:04] LABS: ABSOLUTE BASOPHIL COUNT 0 /CUMM (0.0-0.2); ABSOLUTE EOSINOPHIL COUNT 0.1 /CUMM (0.0-0.7); ABSOLUTE GRANULOCYTE CT 11.6 /CUMM (1.4-6.5); ABSOLUTE LYMPH COUNT 1.3 /CUMM (1.2-3.4); BASOPHIL % 0.2 % (0.0-2.0); EOSINOPHIL % 0.9 % (0-5); GRANULOCYTE % 82.8 % (42.2-75.2); HEMATOCRIT 35.7 % (37-47); MEAN CORPUSCULAR HGB 28.6 PG (27.0-31.0); MEAN CORPUSCULAR HGB CONC 33.1 G/DL (33.0-37.0); MEAN CORPUSCULAR VOLUME 86.6 FL (81.0-99.0); MEAN PLATELET VOLUME 8.1 FL (7.4-10.4); PLATELET COUNT 438 /CUMM (130-400); RBC DISTRIBUTION WIDTH 14.7 % (11.5-14.5); RED BLOOD CELL CT 4.12 /CUMM (4.20-5.40); WHITE BLOOD CELL COUNT 13.9 /CUMM (4.8-10.8)
--- NOTE | 2017-10-06 08:30 | PN- Housestaff ---
Simone MONTGOMERY,Elsa 10/06/17 08: Subjective Follow-up For: Atrial fibrillation with RVR Abnormal liver function Left hip pain secondary to arthritis Persistent leukocytosis Tele-Events Since Last Visit: Atrial fibrillation with heart rate ranging from 90s-100 Subjective: Seen and examined. Patient resting comfortably in the bed. Easily arousable. Continues to complain of left hip pain. Wants orthopedic to be consulted. X- ray done previously did not show any acute fractures changes as consistent with arthritis. Patient is declining lidocaine patch or Tylenol for pain relief. Refuses to work with physical therapy. States that she is not concerned about her heart, wants her arthritis to be addressed Review of Systems Constitutional: Reports: see HPI. Objective Last 24 Hrs of Vital Signs/I&O Vital Signs Date Time Temp Pulse Resp B/P B/P Pulse O2 O2 Flow FiO2 Mean Ox Delivery Rate 10/06 0650 98.9 106 20 90/52 94 Room Air / 2142 99.3 89 20 88/58 98 Room Air / 2052 98 90/60 / 1404 98.2 83 20 98/58 93 Room Air / 0839 98.5 157 20 94/60 /05 0839 98.5 157 20 94/60 Intake & Output 10/06 1600 10/06 0800 10/06 0000 Intake Total Output Total Balance Number 1 Bowel Movements Patient 173 lb Weight Physical Exam General Appearance: Alert, Cooperative, No Acute Distress Cardiovascular: Normal S1, Normal S2 Lungs: Clear to Auscultation, Normal Air Movement Abdomen: Normal Bowel Sounds, Soft, No Tenderness Neurological: Normal Speech Extremities: No Edema Current Medications: Current Medications Sig/Telly Start time Last Medication Dose Route Stop Time Status Admin Acetaminophen 500 MG BID 10/05 1000 AC PO Apixaban 5 MG BID 09/28 1545 AC 10/05 PO 205 Digoxin 0.125 MG Q48 10/05 0900 AC 10/05 PO 0839 Lidocaine 1 PAT DAILY NEEDED PRN 10/02 1545 10/04 [facility] 1649 Metoprolol Tartrate 25 MG BID 09/30 1800 AC 10/05 PO 0839 Last 24 Hrs of Lab/Bridger Results Last 24 Hrs of Labs/Mics: Laboratory Tests 10/06/17 0611: Total Bilirubin 0.6, Direct Bilirubin 0.2, AST 32, ALT 73 H, Alkaline Phosphatase 233 H, Total Protein 4.8 L, Albumin 2.0 L, CBC w Diff NO MAN DIFF REQ, RBC 4.12 L, MCV 86.6, MCH 28.6, MCHC 33.1, RDW 14.7 H, MPV 8.1, Gran % 82.8 H, Lymphocytes % 9.3 L, Monocytes % 6.8, Eosinophils % 0.9, Basophils % 0.2, Absolute Granulocytes 11.6 H, Absolute Lymphocytes 1.3, Absolute Monocytes 1.0 H, Absolute Eosinophils 0.1, Absolute Basophils 0 Assessment/Plan Assessment: 87-yo F with no significant pmhx and history of reported noncompliance with doctor visits for several years was recently admitted to [facility] (09/21 -09/24) after a mechanical fall and was found to be in atrial fibrillation at that time and left AMA with incomplete treatment of beta maia and amiodarone. She returned after being found on the floor and was convinced by family members to be evaluated for shortness of breath and decreased by mouth intake. She was found to have afib with rvr, possible pna, possible UTI, and chf. #A. fib with RVR The patient was found to be in A. fib with RVR with hypotension. Echo revealed EF 50-55% with trace pericardial effusion. She was started on heparin drip and amiodarone drip. Heparin drip was discontinued and she was started on by mouth Eliquis. IV amio was changed to oral amiodarone and then to oral digoxin due to hepatitis/abnormal LFTs. However she was found to have elevated dig levels and dig was held. Lopressor was also added for rate control. A MARIAM cardioversion was attempted yesterday but the MARIAM showed a suspicion of a thrombus so no cardioversion was done. For now we are going to continue the patient on Lopressor, Eliquis and digoxin every other day as per cardiology recommendation #CHF most likely secondary to A. fib She presented with hypotension and was given 2L NS bolus. ProBNP elevated 9480. CT abd/pelvis revealed small bilateral pleural effusions with bibasilar infiltrate/atelectasis. Echo revealed EF 50-55%. No other IVF were given during admission. The patient refused any central lines or pressors and her BP remained stable in the 80s-100s systolic. #Abnormal LFTs most likely secondary to hepatic congestion from CHF Initial T bili 1.3 ,AST 100, ALT 85, ALP 229. Hepatic function tests remained elevated during admission. Hepatitis panel was negative. RUQ ultrasound is negative. Patient remains asymptomatic. Avoid hepatotoxins #Left lower lobe effusion due to pulmonary edema ?Pneumonia WBC was initially elevated 20.8 with lactic acidosis. CXR showed persistent left basilar opacity and small pleural effusion. She was treated with unasyn and then transitioned to po augmentin. She continued to be afebrile during admisson. Strep pneumo and leigonnela urinary antigens were negative. Patient has completed 5 days of antibiotic treatment for suspicion of pneumonia. #Recent fall with rhabdomyolysis The patient was found on floor by family. Creatinine kinase elevated at 1450 and improved with the initial fluid bolus and po fluid intake. Doppler ultrasound was negative for DVT. Xray of hip and femur negative for fracture. CK level improving. She has been constantly refusing physical therapy however convinced to try today. 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 Thyroid ab were negative. She was seen by endocrinology who thought her dysfunction was due to sick euthyroid syndrome. -She should have repeat thyroid function tests in 2-3 weeks. #Stage 2 cocyx ulcer Present on admission. Continued wound care #Persistent leukocytosis Patient's white cell count continuously elevated. Has completed 5 days of treatment for pneumonia. Remains afebrile without any obvious source of infection. Blood pressure running on the low range but this is where she has been for past few days. There Continue to monitor off antibiotics for now DNR/DNI/DVT prophylaxis with Eliquis/heart healthy diet Problem List: 1. Weakness 2. Fall Pain Ratin Pain Location: Hip Left Pain Goal: Pain 4 or less Pain Plan: prn Tomorrow's Labs & Rationales: cbc bep Garrett Patten MD 10/06/17 1134: Attending MD Review Statement Attending Statement Attending MD Statement: examined this patient, discuss w/resident/PA/ORDER ENTRY, agreed w/resident/PA/ORDER ENTRY, reviewed EMR data (avail) Attending Assessment/Plan: 87F admitted for fall, found to be in rapid atrial fibrillation with hypotension requiring ICU admission, initially on Amiodarone and heparin drips, improved and now on Metoprolol and Eliquis, course complicare by aspiration pneumonia now on Augmentin. Underwent MARIAM but was unable to cardiovert due to signs of thrombus. Patient complains of arthritis pain of multiple joints, including both shoulders , left hip, and left knee. She has sought care for these as an outpatient. She otherwise has no complaints. HR is controlled. 1. Rapid atrial fibrillation 2. Hypotension 3. Aspiration pneumonia b/l lower lobes Plan - Stable for discharge to [facility] - Metoprolol and Eliquis - Capsaiscin for joint pain - Orthopedic referral as outpatient - Advise patient to request outpatient PT from her PCP upon discharge - Cardiology recommendations - DVT PPx
--- NOTE | 2017-10-06 10:45 | PN- Cardiology ---
Subjective Subjective: * Patient continues to complain of left hip discomfort. * atrial fibrillation with slightly increased heart rate * Improved LFT's * increased WBC count Objective Vital Signs and I&Os Vital Signs Date Time Temp Pulse Resp B/P B/P Pulse O2 O2 Flow FiO2 Mean Ox Delivery Rate 10/06 0650 98.9 106 20 90/52 94 Room Air 10/05 2142 99.3 89 20 88/58 98 Room Air 10/05 2052 98 90/60 05 1404 98.2 83 20 98/58 93 Room Air Intake & Output 10/06 1600 10/06 0800 10/06 0000 10/05 1600 10/05 0800 10/05 0000 Intake Total 820 240 480 Output Total 350 850 Balance 470 -610 480 Intake, Oral 820 240 480 Number 1 1 0 Bowel Movements Output, Urine 350 850 Patient 173 lb 170 lb 169 lb Weight Weight Bed scale Bed scale Measurement Method Physical Exam: General: WD/WN female in NAD; alert and oriented x 3 HEENT: NC/AT, PERRL, EOMI Neck: no JVD, no carotid bruit Heart: irregularly irregular with 2/6 systolic murmur Lungs: clear bilaterally ABdomen: soft, NT, +ve bowel sounds Extremities: 1+ left LE edema Assessment/Plan Assessment/Plan * This patient has improved blood pressure. Hypotension upon admission may have been due to sepsis considering her initial elevated serum lactate level and persistent increase in WBC count. She reports that her baseline blood pressure is always low. Atrial fibrillation may also be a contributor although her heart rate was not severely elevated and, as such, should not result in severe hemodynamic compromise. Her EF is normal. There is no pulmonary hypertension. * This patient was on Amiodarone which has been discontinued due to concern that it was raising her hepatic transaminases. Her LFT's improved off this medication. Amiodarone was initially started in the setting of hemodynamic instability for atrial fibrillation. At this point in time, since more stable, I would not be inclined to utilize a drug that may convert and would not pursue DC cardioversion until three weeks of adequate anticoagulation. Some smoke indicative of slow blood flow and possible thrombus was noted on her MARIAM. * Continue digoxin at 0.125mg every other day. Continue Metoprolol at 25mg BID. Continue Eliquis 5mg BID. * This patient has hip discomfort and a persistent elevation of WBC count. Consider a WBC scan and orthopedic consult. Continue telemetry? Yes
[2017-10-06] MEDS ORDERED: LANOXIN125 MCG PO (10:57)
--- NOTE | 2017-10-06 13:29 | Discharge Summary ---
Visit Information Visit Dates Admission Date: 09/28/17 Discharge Date: 10/07/2017 Hospital Course Course Attending Physician: Garrett Patten MD Primary Care Physician: Dr. Mari Hospital Course: 87 year old woman with no regular follow up with health in years, recently admitted to [facility] (09/21-09/24) after a mechanical fall and was found to be in new onset atrial fibrillation at that time at that admission she left AMA with noncompliance with medication. She was readmitted on 09/28/17 after being found on the floor by family members. In ED she was found to be in afib with rapid ventricular rate and hypotensive to 90s systolic with minimally response to IV fluids. She was initally admitted to ICU for IV amiodarone drip and was started on Eliquis 5mg BID. Echo done revealed EF 50-55% with trace pericardial effusion. IV amio was changed to oral amiodarone and later transitioned to oral digoxin due to transaminitis. Her transaminitis were thought to be a combination of side effect from the amiodarone as well as secondary to hepatic congestion from acute CHF. Once her blood pressure stablized she was transferred to the telemetry floor. Initially she was found to have elevated dig levels and dig was held for a few days and later restarted at 0.125mg EOD. Metoprolol tartrate 25mg BID was also added for rate control. MARIAM was done on 10/01/17 revealed spontaneous echo contrast seen in the left atrial appendage hence cannot exclude thrombus in the distal left atrial appendage. Agitated saline ("bubble") study revealed some right to left shunt consistent with a patent foramen ovale. She will need to be evaluated as oupatient for DC cardioversion after three weeks of anticoagulation. Her Hepatic function panel trended down hoever remained elevated during her admission. Hepatitis panel was negative. RUQ showed normal size, contour and echogenicity. No focal lesion or intrahepatic biliary duct dilatation. CXR on admission showed persistent left basilar opacity and small pleural effusion. She was treated with IV unasyn and then transitioned to po augmentin to complete a five day course. Strep pneumo and leigonnela urinary antigens were negative. Initial TFTs revealed Free T4 mildly low and TSH mildly elevated but repeat labs were normal. Thyroid ab were negative. She was seen by endocrinology who thought her dysfunction was due to sick euthyroid syndrome. She should have repeat thyroid function tests in 2-3 weeks. Recent fall with rhabdomyolysis, secondary to deconditioning, decreased PO intake and arthritic pain. Creatinine kinase elevated at 1450 and improved with the initial fluid bolus and po fluid intake. Stage 2 cocyx ulcer Present on admission and was follow by wound care service. Code status: DNR DNI She was evaluated by physical therapy and the recomendation was discharge to [facility]. Allergies: Coded Allergies: No Known Allergies (09/20/17) Significant Procedures: SERVICE DATE: 10/02/17 EXAM TYPE: US - US-LIMITED ABDOMEN FINDINGS: PANCREAS: Normal. LIVER: Normal. The liver demonstrates normal size, contour and echogenicity. No focal lesion or intrahepatic biliary duct dilatation. GALLBLADDER: Normal. The gallbladder is physiologically distended without evidence of stones, sludge, polyps, wall thickening or pericholecystic fluid. COMMON BILE DUCT: Normal in caliber measuring 0.4 cm in diameter. RIGHT KIDNEY: Normal. No hydronephrosis. No renal calculi or focal parenchymal lesions. The kidney measures 11.1 cm in maximum dimension. FREE FLUID: None. IMPRESSION: No acute process. Normal study. SERVICE DATE: 10/01/17111 EXAM TYPE: CARD - TRANSESOPHAGEAL ECHO Great Vessels Normal size aortic root. Spontaneous contrast noted in descending thoracic aorta. CONCLUSIONS Normal size left ventricle. Mild concentric left ventricular hypertrophy. Borderline normal left ventricular ejection fraction estimated at 50-55%. Spontaneous contrast seen in the left ventricle. Normal right ventricular size and function. Spontaneous contrast seen in the right ventricle. Normal right atrial size. Mild spontaneous contrast in the right atrial cavity. Normal left atrial size. Mild spontaneous echo contrast seen in the left atrium. Normal size left atrial appendage. Spontaneous echo contrast seen in the left atrial appendage. Cannot exclude thrombus in the distal left atrial appendage. Agitated saline ("bubble") study revealed some right to left shunt consistent with a patent foramen ovale. Mild mitral regurgitation (2 jets). Trace aortic regurgitation. Mild to moderate tricuspid regurgitation. Mild pulmonic regurgitation. Small pericardial effusion. Spontaneous contrast noted in descending thoracic aorta. Yanick Mccarthy M.D. (Electronically Signed) Final Date: 04 October 2017 19:40 SERVICE DATE: 10/01/17- EXAM TYPE: RAD - XRY-FEMUR, LEFT 2 VIEWS; XRY-HIP 2-3 VIEWS, LEFT FINDINGS: 1. Left femur. There is no acute abnormality. No acute fracture or dislocation. 2. Pelvis and left hip. No fracture of the pelvis. 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 The joint space is narrowed with [id number] contact between femoral head and acetabula. There is subchondral sclerosis and cystic changes of both the acetabulum and the femoral head. There is flattening of the superior weightbearing portion of the femoral head. There is spurring about the femoral head and acetabula inferiorly. There is joint narrowing of the right hip but no significant spur, now subchondral cystic changes or erosions. There is degenerative spondylosis of spine with disc height narrowing and endplate spurring at the lower lumbar disc levels. IMPRESSION: 1. Left femur. No fracture left femur. 2. Pelvis and left hip. No fracture of pelvis or either hip. 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 Mild degenerative change of the right hip. Degenerative disc disease of lower lumbar spine. SERVICE DATE: 09/29/17 EXAM TYPE: CARD - ECHOCARDIOGRAM FINDINGS Left Ventricle Normal left ventricular size with mild left ventricular hypertrophy. Normal systolic function with no obvious regional wall motion abnormalities. The ejection fraction is visually estimated at 50- 55%. Right Ventricle The right ventricle is normal in size and function. Right Atrium The right atrium is normal in size. Left Atrium The left atrium is normal in size. The interatrial septum is intact. Mitral Valve The mitral valve is normal in structure and function. There is mild mitral regurgitation. Aortic Valve Mildly thickened aortic valve without significant sclerosis or stenosis. There is no aortic regurgitation. Tricuspid Valve The tricuspid valve is normal in structure and function. There is mild to moderate tricuspid regurgitation. Pulmonary artery systolic pressure is normal. Pulmonic Valve Structurally normal pulmonic valve. There is mild pulmonic regurgitation. Pericardium Normal pericardium with trace effusion. No pleural effusion. Great Vessels Normal aortic root dimension. The aortic arch and great vessels are well seen and are normal. CONCLUSIONS 1. Low normal EF of 50-55%. 2. Mild left ventricular hypertrophy. 3. Mild mitral regurgitation 4. Mild to moderate tricuspid regurgitation. 5. Mild pulmonic regurgitation. 6. Trace pericardial effusion. [place] Dobbs M.D. (Electronically Signed) SERVICE DATE: 09/29/17 EXAM TYPE: US - US-EXT BILAT VENOUS DOPPLER FINDINGS: Respiratory variation, normal compression and augmented flow are noted throughout the lower extremities. The visualized common femoral vein, superficial femoral vein, profunda femoral vein, popliteal vein and midcalf peroneal and posterior tibial venous segments show no evidence of deep venous thrombosis. There are 2 fluid collections identified in the right popliteal fossa measuring 2.3 x 0.3 x 1.1 cm medially and 3.9 x 0.3 x 2.5 cm laterally. IMPRESSION: 1. No evidence of deep venous thrombosis involving the bilateral lower extremities. 2. Right popliteal fossa cyst as described above. SERVICE DATE: 09/29/17 EXAM TYPE: RAD - XRY-PORTABLE CHEST XRAY FINDINGS: Lung volumes are symmetric. There is redemonstrated left basilar opacity and small pleural effusion. No new consolidation is seen bilaterally. No evidence of pneumothorax or overt pulmonary edema. The cardiomediastinal silhouette is stable. No acute osseous findings are seen. IMPRESSION: Persistent left basilar opacity and small pleural effusion, without significant interval change. SERVICE DATE: 09/28/17 EXAM TYPE: CAT - CT ABD & PELVIS W/O IV CONTRAST FINDINGS: LUNG BASES: Small bilateral pleural effusions. Bibasilar atelectasis/infiltrate. The volume of the effusion and the area of consolidation is greater on the left than the right. LIVER, GALLBLADDER, AND BILIARY TREE: The liver is normal in size, shape, and attenuation. No focal hepatic lesion or biliary ductal dilatation is present. Right lobe of liver measures 20 cm superior inferior. The gallbladder is unremarkable with no evidence of radiopaque gallstones, gallbladder wall thickening, or obvious pericholecystic inflammatory changes. PANCREAS: Unremarkable. SPLEEN: Unremarkable. ADRENAL GLANDS: Unremarkable. KIDNEYS AND URETERS: The kidneys are normal in size, shape, and attenuation. No hydronephrosis, hydroureter, or calculi seen. No perinephric stranding. BLADDER: Unremarkable. GASTROINTESTINAL TRACT: There is diverticulosis of the sigmoid and left colon with a few diverticula of the right colon. There is no diverticulitis. There is no acute change of the bowel. No bowel obstruction. No bowel wall thickening or edema. Moderate volume of stool in the colon. The small bowel loops are normal. The appendix is normal. The small bowel loops are unremarkable. ABDOMINAL WALL: No significant hernia is appreciated. LYMPH NODES: Normal. VASCULAR: There is atherosclerotic vascular calcifications of aorta and iliac vessels without aneurysm. PELVIC VISCERA: Uterus is anteverted. No adnexal abnormality. OSSEOUS STRUCTURES: Multilevel degenerative spondylosis of the spine with disc height narrowing and endplate spurring and facet joint arthrosis of the vertebrae. There is advanced degenerative change of the left hip. Femoral head is remodeled with flattening of the weightbearing portion of the femoral head. There is subchondral cystic changes and sclerosis of the weightbearing portion of femoral head and acetabulum with large bone spurs at both the acetabulum and femoral head. There is mild joint narrowing of the right hip. IMPRESSION: 1. Small bilateral pleural effusions with bibasilar infiltrate/atelectasis left worse than right. 2. Diverticulosis of the colon without acute change of the bowel. Disposition Summary Disposition Principal Diagnosis: Atrial fibrillation with RVR Additional Diagnosis: acute CHF transaminitis rhabdomyolsis Aspiration pnemonia sick euthyroid syndrome Stage 2 cocyx ulcer Discharge Disposition: SNF Discharge Instructions General Discharge Information Code Status: Do Not Resucitate/Intubat Patient's Diet: heart healthy diet Patient's Activity: as tolerated Follow-Up Instructions/Appts: -Please follow up with your primary care physician within 1 week of discharge. -You have been provided a referral to orthopedics please follow-up as an outpatient -you will need cardioversion to normalize rhythm of the heart but for that you have to be on blood thinner for 3 weeks. -Follow-up with entry writer within 1 week of discharge, a referral has been provided. -Please get Blood work done on 10/08/2017 and follow up with your primary care doctor regarding results, your WBC count has been elevated and will need to be addressed. -You will need repeat thyroid function tests in 2-3 weeks. Medications at Discharge Discharge Medications: Start taking the following new medications: Apixaban (Eliquis) 5 MG TABLET 1 Tablet ORAL TWICE DAILY Qty = 60 No Refills Comments: Last Taken:10/07/17 Time: 10:45 AM Metoprolol Tartrate (Metoprolol Tartrate) 25 MG TABLET 1 Tablet ORAL TWICE DAILY Qty = 60 No Refills Lidocaine (Lidoderm) 5 % ADH..PATCH 1 Patch On the skin DAILY NEEDED as needed for left hip pain Qty = 14 No Refills Digoxin (Lanoxin) 125 MCG TABLET 1 Tablet ORAL EVERY 48 HOURS (Every 2 days) Qty = 30 No Refills Instructions: PLZ TAKE EVERY OTHER DAY Capsaicin (Capsicum Hot Patch) 0.025 % ADH..PATCH 1 Patch TRANSDERM DAILY as needed for pain Qty = 30 No Refills Comments: Last Taken:10/06/17 Time: 9:45 PM Omeprazole (Omeprazole) 20 MG CAPSULE.DR 1 Capsule ORAL DAILY Qty = 30 No Refills Diclofenac Sodium (Diclofenac Sodium) 25 MG TABLET.DR 1 Tablet ORAL TWICE DAILY as needed for ARTHRITIS PAIN Qty = 30 No Refills Comments: Last Taken:10/07/17 Time: 10:45 AM Copies To: Danielle MONTGOMERY,Yanick Weir; Kamaljit MONTGOMERY,Meek Dobbs MD PHD,[place] Attending MD Review Statement Documenting Attending: Sandor MONTGOMERY,Garrett
[2017-10-06] MEDS ORDERED: [UNRECOGNIZED DRUG - OTHER] TD (13:34)
--- NOTE | 2017-10-06 16:32 | Event Note ---
Event Note Event Note: Patient's blood pressure is in borderline range 80/50 in left arm, 78/50 in right arm personally checked. I have discussed with Dr. Dobbs patient needs to be on metoprolol for rate control. He insisted that metoprolol should be given which will increased stroke volume and increase patient's blood pressure in the long run as well. After detailed discussion with nursing staff we are going to proceed to give metoprolol. I have changed with holding parameters on metoprolol to systolic blood pressure less than 80. We will monitor her closely
--- NOTE | 2017-10-07 08:02 | PN- Housestaff ---
See Addendum Subjective Follow-up For: Amadou CHF Abnormal LFTs Left hip pain 2/2 arthritis Tele-Events Since Last Visit: Atrial fibrillation with heart rate ranging 80s-70s with few PVCs Subjective: Patient seen and examined. Resting comfortably. Patient was an anticipated discharge for yesterday however ended up seeing because of atrial fibrillation heart rate ranging up to 140s. She had not received her metoprolol dose because of borderline blood pressure however after discussion with Dr. Dobbs we proceeded with the metoprolol dosing. Patient's blood pressure has seems to be tolerating Review of Systems Constitutional: Reports: see HPI. Objective Last 24 Hrs of Vital Signs/I&O Vital Signs Date Time Temp Pulse Resp B/P B/P Pulse O2 O2 Flow FiO2 Mean Ox Delivery Rate 10/07 0000 Room Air 10/06 2248 98.7 94 18 84/60 95 Room Air 10/06 2230 90/0 10/06 2151 81 84/60 10/06 1730 79 16 80/0 10/06 1620 126 80/0 10/06 1619 126 80/0 10/06 1431 95 82/50 10/06 1414 97.9 95 20 82/50 95 Room Air 10/06 1240 Room Air 2.0L Intake & Output 10/07 1600 10/07 0800 10/07 0000 Intake Total 200 350 Output Total 250 Balance 200 100 Intake, Oral 200 350 Number 0 Bowel Movements Output, Urine 250 Patient 162 lb Weight Weight Bed scale Measurement Method Physical Exam General Appearance: Alert, Oriented X3, Cooperative Lungs: Clear to Auscultation, Normal Air Movement Abdomen: Normal Bowel Sounds, Soft, No Tenderness Neurological: Normal Speech Extremities: No Edema Current Medications: Current Medications Sig/Telly Start time Last Medication Dose Route Stop Time Status Admin Acetaminophen 500 MG BID 10/05 1000 AC PO Apixaban 5 MG BID 09/28 1545 AC 10/06 PO 2146 Capsaicin 1 FRANSICO Q12 PRN 10/06 1300 AC 10/06 TOP 2147 Celecoxib 200 MG BID PRN 10/06 1300 AC PO Digoxin 0.125 MG Q48 10/05 0900 AC 10/05 PO 0839 Ibuprofen 400 MG TID PRN 10/06 1000 AC 10/06 PO 1028 Lidocaine 1 PAT DAILY NEEDED PRN 10/02 1545 AC 10/04 TOP 1649 Metoprolol Tartrate 25 MG BID 09/30 1800 AC 10/06 PO 1619 Zinc Oxide 1 FRANSICO BID 10/07 0045 [facility] Assessment/Plan Assessment: 87-yo F with no significant pmhx and history of reported noncompliance with doctor visits for several years was recently admitted to [facility] (09/21 -09/24) after a mechanical fall and was found to be in atrial fibrillation at that time and left AMA with incomplete treatment of beta maia and amiodarone. She returned after being found on the floor and was convinced by family members to be evaluated for shortness of breath and decreased by mouth intake. She was found to have afib with rvr, possible pna, possible UTI, and chf. #A. fib with RVR The patient was found to be in A. fib with RVR with hypotension. Echo revealed EF 50-55% with trace pericardial effusion. She was started on heparin drip and amiodarone drip. Heparin drip was discontinued and she was started on by mouth Eliquis. IV amio was changed to oral amiodarone and then to oral digoxin due to hepatitis/abnormal LFTs. However she was found to have elevated dig levels and dig was held. Lopressor was also added for rate control. A MARIAM cardioversion was attempted yesterday but the MAIRAM showed a suspicion of a thrombus so no cardioversion was done. For now we are going to continue the patient on Lopressor, Eliquis and digoxin every other day as per cardiology recommendation *Patient had not received 2 doses of metoprolol and her heart rate was in 140s yesterday. We have changed with holding parameters on metoprolol to systolic less than 80. By decreasing the heart rate stroke-volume will also increase which will benefit her blood pressure in the long run. Patient seems to be tolerating it fine without any acute drops in the blood pressure, maintaining it around her usual range. #CHF most likely secondary to A. fib She presented with hypotension and was given 2L NS bolus. ProBNP elevated 9480. CT abd/pelvis revealed small bilateral pleural effusions with bibasilar infiltrate/atelectasis. Echo revealed EF 50-55%. No other IVF were given during admission. The patient refused any central lines or pressors and her BP remained stable in the 80s systolic. #Recent fall with rhabdomyolysis The patient was found on floor by family. Creatinine kinase elevated at 1450 and improved with the initial fluid bolus and po fluid intake. Doppler ultrasound was negative for DVT. Xray of hip and femur negative for fracture. CK level improving. She has been constantly refusing physical therapy however convinced to try today. -Patient has been evaluated by physical therapy who have recommended short-term rehab -We have added celecoxib patient's regimen for arthritis. #Persistent leukocytosis Patient's white cell count continuously elevated. Has completed 5 days of treatment for pneumonia. Remains afebrile without any obvious source of infection. Blood pressure running on the low range but this is where she usually lives. Continue to monitor off antibiotics for now. At this point it is unclear whether the white count is coming from she is complaining of left hip pain this is most likely secondary to arthritis. There was a small pleural effusion on chest x-ray there is a possibility of empyema with persistent WBC count repeat imaging/CAT scan can be considered #Left lower lobe effusion due to pulmonary edema ?Pneumonia WBC was initially elevated 20.8 with lactic acidosis. CXR showed persistent left basilar opacity and small pleural effusion. She was treated with unasyn and then transitioned to po augmentin. She continued to be afebrile during admisson. Strep pneumo and leigonnela urinary antigens were negative. Patient has completed 5 days of antibiotic treatment for suspicion of pneumonia. #Abnormal LFTs most likely secondary to hepatic congestion from CHF Initial T bili 1.3 ,AST 100, ALT 85, ALP 229. Hepatic function tests remained elevated during admission. Hepatitis panel was negative. RUQ ultrasound is negative. Patient remains asymptomatic. Avoid hepatotoxins #Abnormal thyroid panel, most likely sick euthyroid syndrome Initial TFTs revealed Free T4 mildly low and TSH mildly elevated but repeat labs were normal. Thyroid ab were negative. She was seen by endocrinology who thought her dysfunction was due to sick euthyroid syndrome. -She should have repeat thyroid function tests in 2-3 weeks. #Stage 2 cocyx ulcer Present on admission. Continued wound care DNR/DNI/DVT prophylaxis with Eliquis/heart healthy diet Problem List: 1. Fall 2. Rhabdomyolysis 3. Leukocytosis Pain Ratin Pain Location: left hip Pain Goal: Pain 4 or less Pain Plan: prn Tomorrow's Labs & Rationales: cbc
[2017-10-07] MEDS ORDERED: CELEBREX200 M1 PO (08:08)
[2017-10-07 08:14] VITALS: BP 86/52
[2017-10-07 09:04] LABS: ABSOLUTE BASOPHIL COUNT 0 /CUMM (0.0-0.2); ABSOLUTE EOSINOPHIL COUNT 0.2 /CUMM (0.0-0.7); ABSOLUTE GRANULOCYTE CT 13.8 /CUMM (1.4-6.5); ABSOLUTE LYMPH COUNT 1.2 /CUMM (1.2-3.4); ABSOLUTE MONOCYTE COUNT 0.5 /CUMM (0.10-0.60); BASOPHIL % 0.2 % (0.0-2.0); HEMATOCRIT 34.5 % (37-47); MEAN CORPUSCULAR HGB 28.8 PG (27.0-31.0); MEAN CORPUSCULAR HGB CONC 33.2 G/DL (33.0-37.0); MEAN CORPUSCULAR VOLUME 86.6 FL (81.0-99.0); MEAN PLATELET VOLUME 7.9 FL (7.4-10.4); PLATELET COUNT 427 /CUMM (130-400); RED BLOOD CELL CT 3.99 /CUMM (4.20-5.40); WHITE BLOOD CELL COUNT 15.7 /CUMM (4.8-10.8)
[2017-10-07 09:20] LABS: GRANULOCYTE % 88.2 % (42.2-75.2)
[2017-10-07 10:45] VITALS: BP 98/60
[2017-10-07] MEDS ORDERED: ZIPSOR25 M1 PO ×2 (10:52→11:21)
[2017-10-07] MEDS ORDERED: OMEPRAZOLE20 M2 PO (10:52)
[2017-10-07] MEDS ORDERED: DICLOFENAC SODI PO (11:23)
[2017-10-07 12:00] VITALS: BP 98/60
== END 2017-10-07 15:05 | DRG 309 ==
LOC: ERH 12:46 → CRI 14:26 → 1NO 14:26 → ERHI 14:26 → CANRESERV 14:50 → EDBEDREQ 16:19 → ERHI 16:20 → ENRESERV 18:11 → ENTRNSPT 18:47 → CRI 18:55 → EDTRNSPTSTS 19:08 → EDTRNSPT 19:08 → CMPTRNSPT 19:12 → ENTRNSPT 10-01 19:22 → 1NO 10-01 19:46 → CMPTRNSPT 10-01 20:00 → 1NO 10-03 16:13 → ENPENDDIS 10-07 11:23 → 1NO 10-07 15:05
PROVIDERS: Emergency Medicine; Internal Medicine; Student in an Organized Health Care Education/Training Program
PROC: B24BZZ4 Ultrasonography of Heart with Aorta, Transesophageal (ICD-10-PCS; principal; 2017-10-04)
DX: I48.91 Unspecified atrial fibrillation (principal); M62.82 Rhabdomyolysis; N39.0 Urinary tract infection, site not specified; I50.32 Chronic diastolic (congestive) heart failure; I95.9 Hypotension, unspecified; I11.0 Hypertensive heart disease with heart failure; R74.0 Nonspecific elevation of levels of transaminase and lactic acid dehydrogenase [LDH]; E05.90 Thyrotoxicosis, unspecified without thyrotoxic crisis or storm; E07.81 Sick-euthyroid syndrome; W01.0XXA Fall on same level from slipping, tripping and stumbling without subsequent striking against object, initial encounter; Y92.002 Bathroom of unspecified non-institutional (private) residence as the place of occurrence of the external cause; E03.9 Hypothyroidism, unspecified; L89.152 Pressure ulcer of sacral region, stage 2; D72.829 Elevated white blood cell count, unspecified; I51.3 Intracardiac thrombosis, not elsewhere classified
CPT/HCPCS: 1NSP; CCU; 36415; 36592; 71045; 73502-LT; 73552; 74176; 81001; 82436; 86376; 86800; 87040; 87086; 87449; 87450; 93005; 93010; 93306; 93325; 93970; 96361; 96365; 96374; 97110-GO; 97161-GP; 97530-GO; 99291; J0282; J1160; J1644